=== PATIENT | male | born 1980 | race African-American/Black ===

== ENCOUNTER 2019-04-15 06:09 | Emergency (ER) | payer SELFPAY ==
[2019-04-15] MEDS ORDERED: Albuterol/Ipratropium 3.0-0.5 MG/3 ML Neb Soln ONE (06:11)
[2019-04-15] MEDS ORDERED: predniSONE 20 MG Tab PO ONE (06:17)
[2019-04-15] MEDS ORDERED: Albuterol/Ipratropium 3.0-0.5 MG/3 ML Neb Soln NEB ONE (06:18)
--- NOTE | 2019-04-15 06:19 | EDM.PDOC ---
ED HPI GENERAL MEDICAL PROBLEM - General Chief Complaint: Respiratory Problem Stated Complaint: SHORTNESS OF BREATH Time Seen by Provider: 04/15/19 06:16 - History of Present Illness INITIAL COMMENTS - FREE TEXT/NARRATIVE: HISTORY AND PHYSICAL: History of present illness: Patient 38-year-old black male with history of asthma presents with a concern of asthmatic exacerbation versus last several days he states he recently moved here from [place] forgot his medications. He's had no fever chills nausea vomiting or other complaints Review of systems: As per history of present illness and below otherwise all systems reviewed and negative. Past medical history: As per history of present illness and as reviewed below otherwise noncontributory. Surgical history: As per history of present illness and as reviewed below otherwise noncontributory. Social history: No reported history of drug or alcohol abuse. Family history: As per history of present illness and as reviewed below otherwise noncontributory. Physical exam: HEENT: Atraumatic, normocephalic, pupils reactive, negative for conjunctival pallor or scleral icterus, mucous membranes moist, throat clear, neck supple, nontender, trachea midline. Lungs: Scattered bilateral inspiratory and expiratory wheezing noted, breath sounds equal bilaterally, chest nontender. Heart: S1S2, regular, negative for clicks, rubs, or JVD. Abdomen: Soft, nondistended, nontender. Negative for masses or hepatosplenomegaly. Negative for costovertebral tenderness. Pelvis: Stable nontender. Genitourinary: Deferred. Rectal: Deferred. Extremities: Atraumatic, negative for cords or calf pain. Neurovascular unremarkable. Neuro: Awake, alert, oriented. Cranial nerves II through XII unremarkable. Cerebellum unremarkable. Motor and sensory unremarkable throughout. Exam nonfocal. Diagnostics: None Therapeutics: Albuterol ipratropium nebulizer prednisone 60 mg by mouth Impression: #1 acute asthmatic exacerbation Definitive disposition and diagnosis as appropriate pending reevaluation and review of above. ED ROS GENERAL - Review of Systems Review Of Systems: ROS reveals no pertinent complaints other than HPI. ED EXAM, GENERAL - Physical Exam Exam: See Below (See dictation) Course - Orders/Labs/Meds Meds: Medications Discontinued Medications Generic Name Dose Route Start Last Admin Trade Name Freq PRN Reason Stop Dose Admin Albuterol/Ipratropium Confirm 04/15/19 06:11 Duoneb 3.0-0.5 Mg/3 Ml Administered 04/15/19 06:12 Dose 3 ml .ROUTE .STK-MED ONE Departure - Departure Time of Disposition: :19 Disposition: Home, Self-Care 01 Condition: Good Clinical Impression: Acute asthma - Discharge Information Additional Instructions: The following information is given to patients seen in the emergency department who are being discharged to home. This information is to outline your options for follow-up care. We provide all patients seen in our emergency department with a follow-up referral. The need for follow-up, as well as the timing and circumstances, are variable depending upon the specifics of your emergency department visit. If you don't have a primary care physician on staff, we will provide you with a referral. We always advise you to contact your personal physician following an emergency department visit to inform them of the circumstance of the visit and for follow-up with them and/or the need for any referrals to a consulting specialist. The emergency department will also refer you to a specialist when appropriate. This referral assures that you have the opportunity for followup care with a specialist. All of these measure are taken in an effort to provide you with optimal care, which includes your followup. Under all circumstances we always encourage you to contact your private physician who remains a resource for coordinating your care. When calling for followup care, please make the office aware that this follow-up is from your recent emergency room visit. If for any reason you are refused follow-up, please contact the [facility] emergency department at and asked to speak to the emergency department charge nurse. [facility] [address] [place] [id number] Albuterol as prescribed Medrol as prescribed follow-up primary medical doctor and/or clinic above as needed as discussed and return as needed as discussed
[2019-04-15] MEDS ORDERED: Metoprolol Succinate 50 MG Tab.ER PO ONE (06:57)
[2019-04-15] MEDS ORDERED: hydrALAZINE 20 MG/ML SDV IVPUSH ONE (06:57)
== END 2019-04-15 08:05 | disposition home or self-care (01) ==
LOC: MW.ED 06:09
DX: J45.901 Unspecified asthma with (acute) exacerbation (principal)
CPT/HCPCS: 94640; 96374; 99284; A9270; J0360; 99282; J7620-GY

== ENCOUNTER 2019-04-16 09:54 | Observation (INO) | payer SELFPAY ==
[2019-04-16] MEDS ORDERED: hydrALAZINE 20 MG/ML SDV IVPUSH ONE (10:05)
[2019-04-16] MEDS ORDERED: Sodium Chloride 0.9% 10 ML Syringe FLUSH PRN (10:05)
[2019-04-16] MEDS ORDERED: Sodium Chloride 0.9% 2.5 ML Syringe FLUSH PRN (10:05)
[2019-04-16] MEDS ORDERED: Metoprolol Succinate 100 MG Tab.ER PO ONE (10:06)
[2019-04-16] MEDS ORDERED: Albuterol/Ipratropium 3.0-0.5 MG/3 ML Neb Soln ONE (10:11)
[2019-04-16] MEDS ORDERED: Albuterol/Ipratropium 3.0-0.5 MG/3 ML Neb Soln NEB ONE (10:12)
[2019-04-16] MEDS ORDERED: methylPREDNISolone Sodium Succinate 125 MG/2 ML SDV IVPUSH ONE (10:12)
--- NOTE | 2019-04-16 10:32 | EDM.PDOC ---
ED HPI GENERAL MEDICAL PROBLEM - General Chief Complaint: Respiratory Problem Stated Complaint: SHORTNESS OF BREATH Time Seen by Provider: 04/16/19 10:01 - History of Present Illness INITIAL COMMENTS - FREE TEXT/NARRATIVE: HISTORY AND PHYSICAL: History of present illness: Patient 38-year-old black male history of asthma hypertension who was seen several days prior for medication refill he had elevated blood pressure at this time deferred any more significant treatment he did get albuterol ipratropium nebulizer and IV medication for his elevated blood pressure is discharged to home markedly improved but did not get any of his medications refilled he returns with hypertension and shortness of breath. Review of systems: As per history of present illness and below otherwise all systems reviewed and negative. Past medical history: As per history of present illness and as reviewed below otherwise noncontributory. Surgical history: As per history of present illness and as reviewed below otherwise noncontributory. Social history: No reported history of drug or alcohol abuse. Family history: As per history of present illness and as reviewed below otherwise noncontributory. Physical exam: HEENT: Atraumatic, normocephalic, pupils reactive, negative for conjunctival pallor or scleral icterus, mucous membranes moist, throat clear, neck supple, nontender, trachea midline. Lungs: Inspiratory next-door wheezing noted bilaterally breath sounds equal bilaterally, chest nontender. Heart: S1S2, regular, negative for clicks, rubs, or JVD. Abdomen: Soft, nondistended, nontender. Negative for masses or hepatosplenomegaly. Negative for costovertebral tenderness. Pelvis: Stable nontender. Genitourinary: Deferred. Rectal: Deferred. Extremities: Atraumatic, negative for cords or calf pain. Neurovascular unremarkable. Neuro: Awake, alert, oriented. Cranial nerves II through XII unremarkable. Cerebellum unremarkable. Motor and sensory unremarkable throughout. Exam nonfocal. 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 - Related Data Allergies Allergy/AdvReac Type Severity Reaction Status Date / Time lisinopril Allergy Swelling Verified 04/16/19 12:39 Home Meds: Home Meds Labetalol [Normodyne] 200 mg PO DAILY 04/15/19 [History] amLODIPine [Norvasc] 10 mg PO DAILY 04/16/19 [History] Past Medical History Cardiovascular History: Reports: Hypertension Respiratory History: Reports: Asthma, Sleep Apnea Musculoskeletal History: Reports: None Neurological History: Reports: Headaches, Chronic - Infectious Disease History Infectious Disease History: Reports: Chicken Pox - Past Surgical History Respiratory Surgical History: Reports: None Musculoskeletal Surgical History: Reports: Other (See Below) Other Musculoskeletal Surgeries/Procedures:: left thumb Social & Family History - Family History Family Medical History: Noncontributory - Tobacco Use Smoking Status *Q: Never Smoker - Caffeine Use Caffeine Use: Reports: None - Recreational Drug Use Recreational Drug Use: No ED ROS GENERAL - Review of Systems Review Of Systems: ROS reveals no pertinent complaints other than HPI. ED EXAM, GENERAL - Physical Exam Exam: See Below (See dictation) Course - Vital Signs Last Recorded V/S: Last Vital Signs Temp 36.5 C 04/16/19 17:12 Pulse 100 04/16/19 17:12 Resp 20 04/16/19 17:12 BP 179/135 H 04/16/19 17:12 Pulse Ox 100 04/16/19 17:12 - Orders/Labs/Meds Orders: Active Orders 24 hr Category Date Time Status Patient Status [ADT] Stat ADT 04/16/19 10:32 Active Cardiac Monitoring [RC] . DIRECTED Care 04/16/19 10:03 Inactive RT Aerosol Therapy [RC] ASDIRECTED Care 04/16/19 10:13 Active Sodium Chloride 0.9% [Saline Flush] Med 04/16/19 10:05 Active 10 ml FLUSH ASDIRECTED PRN Sodium Chloride 0.9% [Saline Flush] Med 04/16/19 10:05 Active 2.5 ml FLUSH ASDIRECTED PRN Saline Lock Insert [OM.PC] Stat Oth 04/16/19 10:03 Ordered Medication Orders Acetaminophen (Tylenol) 650 mg PO Q4H PRN PRN Reason: Pain (Mild 1-3)/fever Last Admin: 04/16/19 15:55 Dose: 650 mg Albuterol (Ventolin Hfa) 0 gm INH Q4H PRN PRN Reason: Wheezing Albuterol/Ipratropium (Duoneb 3.0-0.5 Mg/3 Ml) 3 ml NEB Q4HRRT PRN PRN Reason: Shortness of Breath Last Admin: 04/16/19 15:41 Dose: 3 ml Enoxaparin Sodium (Lovenox) 40 mg SUBCUT Q24H [facility] Last Admin: 04/16/19 13:42 Dose: 40 mg Hydralazine HCl (Apresoline) 10 mg PO Q6H MALLIKA Last Admin: 04/16/19 15:29 Dose: 10 mg Ketorolac Tromethamine (Toradol) 30 mg IVPUSH Q6H PRN PRN Reason: Pain (moderate 4-6) Metoprolol Tartrate (Lopressor) 25 mg PO Q12H [facility] Last Admin: 04/16/19 13:52 Dose: 25 mg Ondansetron HCl (Zofran Odt) 4 mg PO Q4H PRN PRN Reason: nausea, able to take PO Sodium Chloride (Saline Flush) 10 ml FLUSH ASDIRECTED PRN PRN Reason: Keep Vein Open Last Admin: 04/16/19 10:15 Dose: 10 ml Sodium Chloride (Saline Flush) 2.5 ml FLUSH ASDIRECTED PRN PRN Reason: Keep Vein Open Last Admin: 04/16/19 10:15 Dose: 2.5 ml Labs: Laboratory Tests 04/16/19 04/16/19 04/16/19 Range/Units 10:07 10:09 10:09 WBC 9.44 (4.0-11.0) K/uL RBC 5.46 (4.50-5.90) M/uL Hgb 15.6 (13.0-17.0) g/dL Hct 45.7 (38.0-50.0) % MCV 83.7 (80.0-98.0) fL MCH 28.6 (27.0-32.0) pg MCHC 34.1 (31.0-37.0) g/dL RDW Std Deviation 41.6 (28.0-62.0) fl RDW Coeff of Cathleen 14 (11.0-15.0) % Plt Count 232 (150-400) K/uL MPV 10.70 (7.40-12.00) fL Neut % (Auto) 56.7 (48.0-80.0) % Lymph % (Auto) 25.7 (16.0-40.0) % Wayne % (Auto) 6.1 (0.0-15.0) % Eos % (Auto) 11.1 H (0.0-7.0) % Baso % (Auto) 0.4 (0.0-1.5) % Neut # (Auto) 5.3 (1.4-5.7) K/uL Lymph # (Auto) 2.4 (0.6-2.4) K/uL Wayne # (Auto) 0.6 (0.0-0.8) K/uL Eos # (Auto) 1.1 H (0.0-0.7) K/uL Baso # (Auto) 0.0 (0.0-0.1) K/uL Nucleated RBC % 0.0 /100WBC Nucleated RBCs # 0 K/uL INR Sodium (136-148) mmol/L Potassium (3.5-5.1) mmol/L Chloride (98-107) mmol/L Carbon Dioxide (21.0-32.0) mmol/L BUN (7.0-18.0) mg/dL Creatinine (0.8-1.3) mg/dL Est Cr Clr Drug Dosing mL/min Estimated GFR (MDRD) ml/min Glucose (74-106) mg/dL Calcium (8.5-10.1) mg/dL Total Bilirubin (0.2-1.0) mg/dL AST (15-37) IU/L ALT (14-63) IU/L Alkaline Phosphatase (46-116) U/L Troponin I (0.000-0.056) ng/mL B-Natriuretic Peptide 40 (<100) PG/ML Total Protein (6.4-8.2) g/dL Albumin (3.4-5.0) g/dL Globulin (2.6-4.0) g/dL Albumin/Globulin Ratio (0.9-1.6) Triglycerides 67 (0-200) mg/dL Cholesterol 176 (50-200) mg/dL LDL Cholesterol, Calc 118 (60-180) mg/dL VLDL Cholesterol 13 (5-55) mg/dL HDL Cholesterol 45 (40-60) mg/dL Cholesterol/HDL Ratio 3.9 (3.3-6.0) TSH 3rd Generation (0.36-3.74) uIU/mL 04/16/19 04/16/19 04/16/19 Range/Units 10:09 10:09 10:09 WBC (4.0-11.0) K/uL RBC (4.50-5.90) M/uL Hgb (13.0-17.0) g/dL Hct (38.0-50.0) % MCV (80.0-98.0) fL MCH (27.0-32.0) pg MCHC (31.0-37.0) g/dL RDW Std Deviation (28.0-62.0) fl RDW Coeff of Cathleen (11.0-15.0) % Plt Count (150-400) K/uL MPV (7.40-12.00) fL Neut % (Auto) (48.0-80.0) % Lymph % (Auto) (16.0-40.0) % Wayne % (Auto) (0.0-15.0) % Eos % (Auto) (0.0-7.0) % Baso % (Auto) (0.0-1.5) % Neut # (Auto) (1.4-5.7) K/uL Lymph # (Auto) (0.6-2.4) K/uL Wayne # (Auto) (0.0-0.8) K/uL Eos # (Auto) (0.0-0.7) K/uL Baso # (Auto) (0.0-0.1) K/uL Nucleated RBC % /100WBC Nucleated RBCs # K/uL INR 1.00 Sodium 136 (136-148) mmol/L Potassium 3.3 L (3.5-5.1) mmol/L Chloride 101 (98-107) mmol/L Carbon Dioxide 25.9 (21.0-32.0) mmol/L BUN 14 (7.0-18.0) mg/dL Creatinine 0.9 (0.8-1.3) mg/dL Est Cr Clr Drug Dosing 120.85 mL/min Estimated GFR (MDRD) > 60.0 ml/min Glucose 101 (74-106) mg/dL Calcium 8.6 (8.5-10.1) mg/dL Total Bilirubin 0.7 (0.2-1.0) mg/dL AST 26 (15-37) IU/L ALT 48 (14-63) IU/L Alkaline Phosphatase 88 (46-116) U/L Troponin I < 0.050 (0.000-0.056) ng/mL B-Natriuretic Peptide (<100) PG/ML Total Protein 8.2 (6.4-8.2) g/dL Albumin 4.4 (3.4-5.0) g/dL Globulin 3.8 (2.6-4.0) g/dL Albumin/Globulin Ratio 1.2 (0.9-1.6) Triglycerides (0-200) mg/dL Cholesterol (50-200) mg/dL LDL Cholesterol, Calc (60-180) mg/dL VLDL Cholesterol (5-55) mg/dL HDL Cholesterol (40-60) mg/dL Cholesterol/HDL Ratio (3.3-6.0) TSH 3rd Generation 0.73 (0.36-3.74) uIU/mL Meds: Medications Generic Name Dose Route Start Last Admin Trade Name Freq PRN Reason Stop Dose Admin Acetaminophen 650 mg 04/16/19 13:12 04/16/19 15:55 Tylenol PO 650 mg Q4H PRN Administration Pain (Mild 1-3)/fever Albuterol 0 gm 04/16/19 13:20 Ventolin Hfa INH Q4H PRN Wheezing Albuterol/Ipratropium 3 ml 04/16/19 13:20 04/16/19 15:41 Duoneb 3.0-0.5 Mg/3 Ml NEB 3 ml Q4HRRT PRN Administration Shortness of Breath Enoxaparin Sodium 40 mg 04/16/19 13:15 04/16/19 13:42 Lovenox SUBCUT 40 mg Q24H MALLIKA Administration Hydralazine HCl 10 mg 04/16/19 15:15 04/16/19 15:29 Apresoline PO 10 mg Q6H MALLIKA Administration Ketorolac Tromethamine 30 mg 04/16/19 13:12 Toradol IVPUSH Q6H PRN Pain (moderate 4-6) Metoprolol Tartrate 25 mg 04/16/19 13:45 04/16/19 13:52 Lopressor PO 25 mg Q12H MALLIKA Administration Ondansetron HCl 4 mg 04/16/19 13:12 Zofran Odt PO Q4H PRN nausea, able to take PO Sodium Chloride 10 ml 04/16/19 10:05 04/16/19 10:15 Saline Flush FLUSH 10 ml ASDIRECTED PRN Administration Keep Vein Open Sodium Chloride 2.5 ml 04/16/19 10:05 04/16/19 10:15 Saline Flush FLUSH 2.5 ml ASDIRECTED PRN Administration Keep Vein Open Discontinued Medications Generic Name Dose Route Start Last Admin Trade Name Freq PRN Reason Stop Dose Admin Albuterol/Ipratropium 3 ml 04/16/19 10:12 04/16/19 10:19 Duoneb 3.0-0.5 Mg/3 Ml NEB 04/16/19 10:13 3 ml ONETIME ONE Administration Albuterol/Ipratropium Confirm 04/16/19 10:11 04/16/19 10:20 Duoneb 3.0-0.5 Mg/3 Ml Administered 04/16/19 10:12 Not Given Dose 3 ml .ROUTE .STK-MED ONE Hydralazine HCl 10 mg 04/16/19 10:05 04/16/19 10:15 Apresoline IVPUSH 04/16/19 10:06 10 mg ONETIME ONE Administration Labetalol HCl 10 mg 04/16/19 13:30 Normodyne PO DAILY MALLIKA Labetalol HCl 100 mg 04/16/19 13:30 Normodyne PO DAILY MALLIKA Labetalol HCl 100 mg 04/16/19 21:00 Normodyne PO BID MALLIKA Methylprednisolone Sodium Succinate 125 mg 04/16/19 10:12 04/16/19 10:18 Solu-Medrol IVPUSH 04/16/19 10:13 125 mg ONETIME ONE Administration Metoprolol Succinate 100 mg 04/16/19 10:06 04/16/19 10:16 Toprol Xl PO 04/16/19 10:07 100 mg ONETIME ONE Administration Departure - Departure Time of Disposition: 18:35 Disposition: Refer to Observation Condition: Good Clinical Impression: Exacerbation of asthma, Hypertension - Discharge Information - My Orders Last 24 Hours: My Active Orders 04/16/19 10:03 Cardiac Monitoring [RC] . DIRECTED Saline Lock Insert [OM.PC] Stat 04/16/19 10:05 Sodium Chloride 0.9% [Saline Flush] 10 ml FLUSH ASDIRECTED PRN Sodium Chloride 0.9% [Saline Flush] 2.5 ml FLUSH ASDIRECTED PRN 04/16/19 10:13 RT Aerosol Therapy [RC] ASDIRECTED 04/16/19 10:32 Patient Status [ADT] Stat - Assessment/Plan Last 24 Hours: My Active Orders 04/16/19 10:03 Cardiac Monitoring [RC] . DIRECTED Saline Lock Insert [OM.PC] Stat 04/16/19 10:05 Sodium Chloride 0.9% [Saline Flush] 10 ml FLUSH ASDIRECTED PRN Sodium Chloride 0.9% [Saline Flush] 2.5 ml FLUSH ASDIRECTED PRN 04/16/19 10:13 RT Aerosol Therapy [RC] ASDIRECTED 04/16/19 10:32 Patient Status [ADT] Stat
--- NOTE | 2019-04-16 10:37 | CR ---
EXAMINATION: Portable chest radiograph. HISTORY: Shortness of breath. FINDINGS: The trachea is midline. The cardiomediastinal silhouette is within normal limits. No pulmonary infiltrates, effusions or pneumothorax. Osseous structures appear unremarkable. IMPRESSION: No acute cardiopulmonary process.
[2019-04-16 10:46] LABS: CHLORIDE,CL 101 mmol/L (98-107); SODIUM,NA 136 mmol/L (136-148)
[2019-04-16] MEDS ORDERED: Ketorolac 30 MG/ML SDV IVPUSH PRN (13:12)
[2019-04-16] MEDS ORDERED: Ondansetron 4 MG Tab.DIS PO PRN (13:12)
[2019-04-16] MEDS ORDERED: Enoxaparin 40 MG/0.4 ML Syringe SUBCUT SCH (13:15)
--- NOTE | 2019-04-16 13:17 | PCM.HP ---
<Farhan Patel - Last Filed: 04/16/19 15:00> H&P History of Present Illness - General Date of Service: 04/16/19 Admit Problem/Dx: Admission Diagnosis/Problem Admission Diagnosis/Problem Dyspnea - History of Present Illness Initial Comments - Free Text/Narative: 38 y/o male with history of hypertension and asthma who presented to the ER complaining of worsening shortness of breath. He states he recently moved from [place] about 1 week ago. He states he has not used any rescue inhalers in years since he was feeling well until he moved here recently. Denies any headaches, change in vision, cough. No abdominal pain,dysuria, diarrhea. In the ER he was found to have BP 210/148. He was given metoprolol and hydralazine. Denies any tobacco use, alcohol use, illicit drug use. - Related Data Allergies/Adverse Reactions: Allergies Allergy/AdvReac Type Severity Reaction Status Date / Time lisinopril Allergy Swelling Verified 04/16/19 12:39 Home Medications: Home Meds Labetalol [Normodyne] 200 mg PO DAILY 04/15/19 [History] amLODIPine [Norvasc] 10 mg PO DAILY 04/16/19 [History] Past Medical History Cardiovascular History: Reports: Hypertension Respiratory History: Reports: Asthma, Sleep Apnea Musculoskeletal History: Reports: None Neurological History: Reports: Headaches, Chronic - Infectious Disease History Infectious Disease History: Reports: Chicken Pox - Past Surgical History Respiratory Surgical History: Reports: None Musculoskeletal Surgical History: Reports: Other (See Below) Other Musculoskeletal Surgeries/Procedures:: left thumb Social & Family History - Family History Family Medical History: Noncontributory Cardiac: Reports: Hypertension - Tobacco Use Smoking Status *Q: Never Smoker Second Hand Smoke Exposure: No - Caffeine Use Caffeine Use: Reports: Soda Caffeine Use Comment: A few cans of coke occasionally - Recreational Drug Use Recreational Drug Use: No H&P Review of Systems - Review of Systems: Review Of Systems: ROS reveals no pertinent complaints other than HPI. Exam - Exam Exam: See Below - Vital Signs Vital Signs: Last Vital Signs Temp 36.6 C 04/16/19 12:26 Pulse 80 04/16/19 12:26 Resp 12 04/16/19 12:26 BP 180/139 H 04/16/19 12:26 Pulse Ox 96 04/16/19 12:26 Weight: 102.512 kg - Exam General: Alert, Oriented, Cooperative HEENT: Conjunctiva Clear, Mucosa Moist & [place] Lungs: Clear to Auscultation, Normal Respiratory Effort, Wheezing. No: Crackles Cardiovascular: Regular Rate, Bradycardia GI/Abdominal Exam: Normal Bowel Sounds, Soft, Non-Tender Extremities: Normal Inspection, No Pedal Edema Skin: Warm, Dry - Patient Data Lab Results Last 24 hrs: Laboratory Results - last 24 hr 04/16/19 04/16/19 04/16/19 Range/Units 10:09 10:09 10:09 WBC 9.44 (4.0-11.0) K/uL RBC 5.46 (4.50-5.90) M/uL Hgb 15.6 (13.0-17.0) g/dL Hct 45.7 (38.0-50.0) % MCV 83.7 (80.0-98.0) fL MCH 28.6 (27.0-32.0) pg MCHC 34.1 (31.0-37.0) g/dL RDW Std Deviation 41.6 (28.0-62.0) fl RDW Coeff of Cathleen 14 (11.0-15.0) % Plt Count 232 (150-400) K/uL MPV 10.70 (7.40-12.00) fL Neut % (Auto) 56.7 (48.0-80.0) % Lymph % (Auto) 25.7 (16.0-40.0) % [place] % (Auto) 6.1 (0.0-15.0) % Eos % (Auto) 11.1 H (0.0-7.0) % Baso % (Auto) 0.4 (0.0-1.5) % Neut # (Auto) 5.3 (1.4-5.7) K/uL Lymph # (Auto) 2.4 (0.6-2.4) K/uL [place] # (Auto) 0.6 (0.0-0.8) K/uL Eos # (Auto) 1.1 H (0.0-0.7) K/uL Baso # (Auto) 0.0 (0.0-0.1) K/uL Nucleated RBC % 0.0 /100WBC Nucleated RBCs # 0 K/uL INR 1.00 Sodium (136-148) mmol/L Potassium (3.5-5.1) mmol/L Chloride (98-107) mmol/L Carbon Dioxide (21.0-32.0) mmol/L BUN (7.0-18.0) mg/dL Creatinine (0.8-1.3) mg/dL Est Cr Clr Drug Dosing mL/min Estimated GFR (MDRD) ml/min Glucose (74-106) mg/dL Calcium (8.5-10.1) mg/dL Total Bilirubin (0.2-1.0) mg/dL AST (15-37) IU/L ALT (14-63) IU/L Alkaline Phosphatase (46-116) U/L Troponin I (0.000-0.056) ng/mL B-Natriuretic Peptide 40 (<100) PG/ML Total Protein (6.4-8.2) g/dL Albumin (3.4-5.0) g/dL Globulin (2.6-4.0) g/dL Albumin/Globulin Ratio (0.9-1.6) 04/16/19 Range/Units 10:09 WBC (4.0-11.0) K/uL RBC (4.50-5.90) M/uL Hgb (13.0-17.0) g/dL Hct (38.0-50.0) % MCV (80.0-98.0) fL MCH (27.0-32.0) pg MCHC (31.0-37.0) g/dL RDW Std Deviation (28.0-62.0) fl RDW Coeff of Cathleen (11.0-15.0) % Plt Count (150-400) K/uL MPV (7.40-12.00) fL Neut % (Auto) (48.0-80.0) % Lymph % (Auto) (16.0-40.0) % [place] % (Auto) (0.0-15.0) % Eos % (Auto) (0.0-7.0) % Baso % (Auto) (0.0-1.5) % Neut # (Auto) (1.4-5.7) K/uL Lymph # (Auto) (0.6-2.4) K/uL [place] # (Auto) (0.0-0.8) K/uL Eos # (Auto) (0.0-0.7) K/uL Baso # (Auto) (0.0-0.1) K/uL Nucleated RBC % /100WBC Nucleated RBCs # K/uL INR Sodium 136 (136-148) mmol/L Potassium 3.3 L (3.5-5.1) mmol/L Chloride 101 (98-107) mmol/L Carbon Dioxide 25.9 (21.0-32.0) mmol/L BUN 14 (7.0-18.0) mg/dL Creatinine 0.9 (0.8-1.3) mg/dL Est Cr Clr Drug Dosing 120.85 mL/min Estimated GFR (MDRD) > 60.0 ml/min Glucose 101 (74-106) mg/dL Calcium 8.6 (8.5-10.1) mg/dL Total Bilirubin 0.7 (0.2-1.0) mg/dL AST 26 (15-37) IU/L ALT 48 (14-63) IU/L Alkaline Phosphatase 88 (46-116) U/L Troponin I < 0.050 (0.000-0.056) ng/mL B-Natriuretic Peptide (<100) PG/ML Total Protein 8.2 (6.4-8.2) g/dL Albumin 4.4 (3.4-5.0) g/dL Globulin 3.8 (2.6-4.0) g/dL Albumin/Globulin Ratio 1.2 (0.9-1.6) Result Diagrams: 04/16/19 10:09 04/16/19 10:09 Problem List Initiated/Reviewed/Updated: Yes Orders Last 24hrs: Active Orders 24 hr Category Date Time Status Patient Status [ADT] Stat ADT 04/16/19 10:32 Active Cardiac Monitoring [RC] . DIRECTED Care 04/16/19 10:03 Active Oxygen Therapy [RC] PRN Care 04/16/19 13:12 Ordered RT Aerosol Therapy [RC] ASDIRECTED Care 04/16/19 10:13 Active Up ad [place] [RC] ASDIRECTED Care 04/16/19 13:12 Ordered VTE/DVT Education [RC] PER UNIT ROUTINE Care 04/16/19 13:12 Ordered Vital Signs [RC] Q4H Care 04/16/19 13:12 Ordered Regular Diet [DIET] Diet 04/16/19 Breakfast Ordered Acetaminophen [Tylenol] Med 04/16/19 13:12 Ordered 650 mg PO Q4H PRN Enoxaparin [Lovenox] Med 04/16/19 13:15 Ordered 40 mg SUBCUT Q24H Ketorolac [Toradol] Med 04/16/19 13:12 Ordered 30 mg IM Q6H PRN Labetalol [Normodyne] Med 04/16/19 13:30 Ordered 100 mg PO DAILY Ondansetron [Zofran ODT] Med 04/16/19 13:12 Ordered 4 mg PO Q4H PRN Sodium Chloride 0.9% [Saline Flush] Med 04/16/19 10:05 Active 10 ml FLUSH ASDIRECTED PRN Sodium Chloride 0.9% [Saline Flush] Med 04/16/19 10:05 Active 2.5 ml FLUSH ASDIRECTED PRN Saline Lock Insert [OM.PC] Stat Oth 04/16/19 10:03 Ordered Resuscitation Status Routine Resus Stat 04/16/19 13:12 Ordered Medication Orders Acetaminophen (Tylenol) 650 mg PO Q4H PRN PRN Reason: Pain (Mild 1-3)/fever Enoxaparin Sodium (Lovenox) 40 mg SUBCUT Q24H MALLIKA Ketorolac Tromethamine (Toradol) 30 mg IM Q6H PRN PRN Reason: Pain (moderate 4-6) Labetalol HCl (Normodyne) 100 mg PO DAILY MALLIKA Ondansetron HCl (Zofran Odt) 4 mg PO Q4H PRN PRN Reason: nausea, able to take PO Sodium Chloride (Saline Flush) 10 ml FLUSH ASDIRECTED PRN PRN Reason: Keep Vein Open Last Admin: 04/16/19 10:15 Dose: 10 ml Sodium Chloride (Saline Flush) 2.5 ml FLUSH ASDIRECTED PRN PRN Reason: Keep Vein Open Last Admin: 04/16/19 10:15 Dose: 2.5 ml Assessment/Plan Comment:: A: 1. Hypertensive urgency 2. Hypokalemia P: 1. Hypertensive urgency- Metoprolol 25 mg PO BID. If not improving, will increase dose and possibly start hydralazine. Pending Echo. 2. Hypokalemia- replace with KCl 40 mEq once. recheck tomorrow. dispo:1-2 days. <Hua Cano - Last Filed: 04/16/19 16:20> H&P History of Present Illness - General Admit Problem/Dx: Admission Diagnosis/Problem Admission Diagnosis/Problem Dyspnea I have seen and examined to patient independently of medical legal investigator, Farhan Montero MD. I have discussed the case for care of this patient with him. I have reviewed and approve of the plan of care as outlined by medical legal investigator. Please see orders. Exam - Vital Signs Vital Signs: Last Vital Signs Temp 35.6 C 04/16/19 12:35 Pulse 89 04/16/19 13:52 Resp 20 04/16/19 12:35 BP 178/111 H 04/16/19 15:29 Pulse Ox 97 04/16/19 12:35 - Patient Data Lab Results Last 24 hrs: Laboratory Results - last 24 hr 04/16/19 04/16/19 04/16/19 Range/Units 10:07 10:09 10:09 WBC 9.44 (4.0-11.0) K/uL RBC 5.46 (4.50-5.90) M/uL Hgb 15.6 (13.0-17.0) g/dL Hct 45.7 (38.0-50.0) % MCV 83.7 (80.0-98.0) fL MCH 28.6 (27.0-32.0) pg MCHC 34.1 (31.0-37.0) g/dL RDW Std Deviation 41.6 (28.0-62.0) fl RDW Coeff of Cathleen 14 (11.0-15.0) % Plt Count 232 (150-400) K/uL MPV 10.70 (7.40-12.00) fL Neut % (Auto) 56.7 (48.0-80.0) % Lymph % (Auto) 25.7 (16.0-40.0) % [place] % (Auto) 6.1 (0.0-15.0) % Eos % (Auto) 11.1 H (0.0-7.0) % Baso % (Auto) 0.4 (0.0-1.5) % Neut # (Auto) 5.3 (1.4-5.7) K/uL Lymph # (Auto) 2.4 (0.6-2.4) K/uL [place] # (Auto) 0.6 (0.0-0.8) K/uL Eos # (Auto) 1.1 H (0.0-0.7) K/uL Baso # (Auto) 0.0 (0.0-0.1) K/uL Nucleated RBC % 0.0 /100WBC Nucleated RBCs # 0 K/uL INR Sodium (136-148) mmol/L Potassium (3.5-5.1) mmol/L Chloride (98-107) mmol/L Carbon Dioxide (21.0-32.0) mmol/L BUN (7.0-18.0) mg/dL Creatinine (0.8-1.3) mg/dL Est Cr Clr Drug Dosing mL/min Estimated GFR (MDRD) ml/min Glucose (74-106) mg/dL Hemoglobin A1c (4.5-6.2) % Calcium (8.5-10.1) mg/dL Total Bilirubin (0.2-1.0) mg/dL AST (15-37) IU/L ALT (14-63) IU/L Alkaline Phosphatase (46-116) U/L Troponin I (0.000-0.056) ng/mL B-Natriuretic Peptide 40 (<100) PG/ML Total Protein (6.4-8.2) g/dL Albumin (3.4-5.0) g/dL Globulin (2.6-4.0) g/dL Albumin/Globulin Ratio (0.9-1.6) Triglycerides 67 (0-200) mg/dL Cholesterol 176 (50-200) mg/dL LDL Cholesterol, Calc 118 (60-180) mg/dL VLDL Cholesterol 13 (5-55) mg/dL HDL Cholesterol 45 (40-60) mg/dL Cholesterol/HDL Ratio 3.9 (3.3-6.0) TSH 3rd Generation (0.36-3.74) uIU/mL Urine Color Urine Appearance Urine pH (5.0-8.0) Ur Specific [place] (1.001-1.035) Urine Protein (NEGATIVE) mg/dL Urine Glucose (UA) (NEGATIVE) mg/dL Urine Ketones (NEGATIVE) mg/dL Urine Occult Blood (NEGATIVE) Urine Nitrite (NEGATIVE) Urine Bilirubin (NEGATIVE) Urine Urobilinogen (<2.0) EU/dL Ur Leukocyte Esterase (NEGATIVE) Urine RBC (0-2/HPF) Urine WBC (0-5/HPF) Ur Epithelial Cells (NONE-FEW) Amorphous Sediment (NEGATIVE) Urine Bacteria (NEGATIVE) Urine Opiates Screen (NEGATIVE) Ur Oxycodone Screen (NEGATIVE) Urine Methadone Screen (NEGATIVE) Ur Barbiturates Screen (NEGATIVE) Ur Phencyclidine Scrn (NEGATIVE) Ur Amphetamine Screen (NEGATIVE) U Methamphetamines Scrn (NEGATIVE) U Benzodiazepines Scrn (NEGATIVE) U Cocaine Metab Screen (NEGATIVE) U Marijuana (THC) Screen (NEGATIVE) 04/16/19 04/16/19 04/16/19 Range/Units 10:09 10:09 10:09 WBC (4.0-11.0) K/uL RBC (4.50-5.90) M/uL Hgb (13.0-17.0) g/dL Hct (38.0-50.0) % MCV (80.0-98.0) fL MCH (27.0-32.0) pg MCHC (31.0-37.0) g/dL RDW Std Deviation (28.0-62.0) fl RDW Coeff of Cathleen (11.0-15.0) % Plt Count (150-400) K/uL MPV (7.40-12.00) fL Neut % (Auto) (48.0-80.0) % Lymph % (Auto) (16.0-40.0) % [place] % (Auto) (0.0-15.0) % Eos % (Auto) (0.0-7.0) % Baso % (Auto) (0.0-1.5) % Neut # (Auto) (1.4-5.7) K/uL Lymph # (Auto) (0.6-2.4) K/uL [place] # (Auto) (0.0-0.8) K/uL Eos # (Auto) (0.0-0.7) K/uL Baso # (Auto) (0.0-0.1) K/uL Nucleated RBC % /100WBC Nucleated RBCs # K/uL INR 1.00 Sodium 136 (136-148) mmol/L Potassium 3.3 L (3.5-5.1) mmol/L Chloride 101 (98-107) mmol/L Carbon Dioxide 25.9 (21.0-32.0) mmol/L BUN 14 (7.0-18.0) mg/dL Creatinine 0.9 (0.8-1.3) mg/dL Est Cr Clr Drug Dosing 120.85 mL/min Estimated GFR (MDRD) > 60.0 ml/min Glucose 101 (74-106) mg/dL Hemoglobin A1c (4.5-6.2) % Calcium 8.6 (8.5-10.1) mg/dL Total Bilirubin 0.7 (0.2-1.0) mg/dL AST 26 (15-37) IU/L ALT 48 (14-63) IU/L Alkaline Phosphatase 88 (46-116) U/L Troponin I < 0.050 (0.000-0.056) ng/mL B-Natriuretic Peptide (<100) PG/ML Total Protein 8.2 (6.4-8.2) g/dL Albumin 4.4 (3.4-5.0) g/dL Globulin 3.8 (2.6-4.0) g/dL Albumin/Globulin Ratio 1.2 (0.9-1.6) Triglycerides (0-200) mg/dL Cholesterol (50-200) mg/dL LDL Cholesterol, Calc (60-180) mg/dL VLDL Cholesterol (5-55) mg/dL HDL Cholesterol (40-60) mg/dL Cholesterol/HDL Ratio (3.3-6.0) TSH 3rd Generation 0.73 (0.36-3.74) uIU/mL Urine Color Urine Appearance Urine pH (5.0-8.0) Ur Specific [place] (1.001-1.035) Urine Protein (NEGATIVE) mg/dL Urine Glucose (UA) (NEGATIVE) mg/dL Urine Ketones (NEGATIVE) mg/dL Urine Occult Blood (NEGATIVE) Urine Nitrite (NEGATIVE) Urine Bilirubin (NEGATIVE) Urine Urobilinogen (<2.0) EU/dL Ur Leukocyte Esterase (NEGATIVE) Urine RBC (0-2/HPF) Urine WBC (0-5/HPF) Ur Epithelial Cells (NONE-FEW) Amorphous Sediment (NEGATIVE) Urine Bacteria (NEGATIVE) Urine Opiates Screen (NEGATIVE) Ur Oxycodone Screen (NEGATIVE) Urine Methadone Screen (NEGATIVE) Ur Barbiturates Screen (NEGATIVE) Ur Phencyclidine Scrn (NEGATIVE) Ur Amphetamine Screen (NEGATIVE) U Methamphetamines Scrn (NEGATIVE) U Benzodiazepines Scrn (NEGATIVE) U Cocaine Metab Screen (NEGATIVE) U Marijuana (THC) Screen (NEGATIVE) 04/16/19 04/16/19 04/16/19 Range/Units 14:03 15:35 15:35 WBC (4.0-11.0) K/uL RBC (4.50-5.90) M/uL Hgb (13.0-17.0) g/dL Hct (38.0-50.0) % MCV (80.0-98.0) fL MCH (27.0-32.0) pg MCHC (31.0-37.0) g/dL RDW Std Deviation (28.0-62.0) fl RDW Coeff of Cathleen (11.0-15.0) % Plt Count (150-400) K/uL MPV (7.40-12.00) fL Neut % (Auto) (48.0-80.0) % Lymph % (Auto) (16.0-40.0) % [place] % (Auto) (0.0-15.0) % Eos % (Auto) (0.0-7.0) % Baso % (Auto) (0.0-1.5) % Neut # (Auto) (1.4-5.7) K/uL Lymph # (Auto) (0.6-2.4) K/uL [place] # (Auto) (0.0-0.8) K/uL Eos # (Auto) (0.0-0.7) K/uL Baso # (Auto) (0.0-0.1) K/uL Nucleated RBC % /100WBC Nucleated RBCs # K/uL INR Sodium (136-148) mmol/L Potassium (3.5-5.1) mmol/L Chloride (98-107) mmol/L Carbon Dioxide (21.0-32.0) mmol/L BUN (7.0-18.0) mg/dL Creatinine (0.8-1.3) mg/dL Est Cr Clr Drug Dosing mL/min Estimated GFR (MDRD) ml/min Glucose (74-106) mg/dL Hemoglobin A1c 5.6 (4.5-6.2) % Calcium (8.5-10.1) mg/dL Total Bilirubin (0.2-1.0) mg/dL AST (15-37) IU/L ALT (14-63) IU/L Alkaline Phosphatase (46-116) U/L Troponin I (0.000-0.056) ng/mL B-Natriuretic Peptide (<100) PG/ML Total Protein (6.4-8.2) g/dL Albumin (3.4-5.0) g/dL Globulin (2.6-4.0) g/dL Albumin/Globulin Ratio (0.9-1.6) Triglycerides (0-200) mg/dL Cholesterol (50-200) mg/dL LDL Cholesterol, Calc (60-180) mg/dL VLDL Cholesterol (5-55) mg/dL HDL Cholesterol (40-60) mg/dL Cholesterol/HDL Ratio (3.3-6.0) TSH 3rd Generation (0.36-3.74) uIU/mL Urine Color YELLOW Urine Appearance SLT CLOUDY Urine pH 7.5 (5.0-8.0) Ur Specific [place] 1.015 (1.001-1.035) Urine Protein TRACE H (NEGATIVE) mg/dL Urine Glucose (UA) 100 H (NEGATIVE) mg/dL Urine Ketones NEGATIVE (NEGATIVE) mg/dL Urine Occult Blood NEGATIVE (NEGATIVE) Urine Nitrite NEGATIVE (NEGATIVE) Urine Bilirubin NEGATIVE (NEGATIVE) Urine Urobilinogen 0.2 (<2.0) EU/dL Ur Leukocyte Esterase NEGATIVE (NEGATIVE) Urine RBC 0-1 (0-2/HPF) Urine WBC 0-2 (0-5/HPF) Ur Epithelial Cells RARE (NONE-FEW) Amorphous Sediment MODERATE (NEGATIVE) Urine Bacteria FEW (NEGATIVE) Urine Opiates Screen NEGATIVE (NEGATIVE) Ur Oxycodone Screen NEGATIVE (NEGATIVE) Urine Methadone Screen NEGATIVE (NEGATIVE) Ur Barbiturates Screen NEGATIVE (NEGATIVE) Ur Phencyclidine Scrn NEGATIVE (NEGATIVE) Ur Amphetamine Screen NEGATIVE (NEGATIVE) U Methamphetamines Scrn NEGATIVE (NEGATIVE) U Benzodiazepines Scrn NEGATIVE (NEGATIVE) U Cocaine Metab Screen NEGATIVE (NEGATIVE) U Marijuana (THC) Screen NEGATIVE (NEGATIVE) Result Diagrams: 04/16/19 10:09 04/16/19 10:09 Orders Last 24hrs: Active Orders 24 hr Category Date Time Status Patient Status [ADT] Stat ADT 04/16/19 10:32 Active Cardiac Monitoring [RC] . DIRECTED Care 04/16/19 10:03 Inactive Oxygen Therapy [RC] PRN Care 04/16/19 13:12 Active RT Aerosol Therapy [RC] ASDIRECTED Care 04/16/19 10:13 Active RT Aerosol Therapy [RC] ASDIRECTED Care 04/16/19 13:20 Active RT Post Treatment Assessment [RC] Click to Edit Care 04/16/19 13:21 Active RT Pre-Treatment Assessment [RC] Click to Edit Care 04/16/19 13:21 Active Telemetry Monitoring [Cardiac Monitoring] [RC] . Care 04/16/19 14:30 Active DIRECTED Up ad Ana Paula [RC] ASDIRECTED Care 04/16/19 13:12 Active VTE/DVT Education [RC] PER UNIT ROUTINE Care 04/16/19 13:12 Active Vital Signs [RC] Q4H Care 04/16/19 13:12 Active Regular Diet [DIET] Diet 04/16/19 Breakfast Active Acetaminophen [Tylenol] Med 04/16/19 13:12 Active 650 mg PO Q4H PRN Albuterol [Ventolin HFA] Med 04/16/19 13:20 Active See Dose Instructions INH Q4H PRN Albuterol/Ipratropium [DuoNeb 3.0-0.5 MG/3 ML] Med 04/16/19 13:20 Active 3 ml NEB Q4HRRT PRN Enoxaparin [Lovenox] Med 04/16/19 13:15 Active 40 mg SUBCUT Q24H Ketorolac [Toradol] Med 04/16/19 13:12 Active 30 mg IVPUSH Q6H PRN Metoprolol Tartrate [Lopressor] Med 04/16/19 13:45 Active 25 mg PO Q12H Ondansetron [Zofran ODT] Med 04/16/19 13:12 Active 4 mg PO Q4H PRN Sodium Chloride 0.9% [Saline Flush] Med 04/16/19 10:05 Active 10 ml FLUSH ASDIRECTED PRN Sodium Chloride 0.9% [Saline Flush] Med 04/16/19 10:05 Active 2.5 ml FLUSH ASDIRECTED PRN hydrALAZINE [Apresoline] Med 04/16/19 15:15 Active 10 mg PO Q6H Saline Lock Insert [OM.PC] Stat Oth 04/16/19 10:03 Ordered Resuscitation Status Routine Resus Stat 04/16/19 13:12 Ordered Medication Orders Acetaminophen (Tylenol) 650 mg PO Q4H PRN PRN Reason: Pain (Mild 1-3)/fever Last Admin: 04/16/19 15:55 Dose: 650 mg Albuterol (Ventolin Hfa) 0 gm INH Q4H PRN PRN Reason: Wheezing Albuterol/Ipratropium (Duoneb 3.0-0.5 Mg/3 Ml) 3 ml NEB Q4HRRT PRN PRN Reason: Shortness of Breath Last Admin: 04/16/19 15:41 Dose: 3 ml Enoxaparin Sodium (Lovenox) 40 mg SUBCUT Q24H MALLIKA Last Admin: 04/16/19 13:42 Dose: 40 mg Hydralazine HCl (Apresoline) 10 mg PO Q6H MALLIKA Last Admin: 04/16/19 15:29 Dose: 10 mg Ketorolac Tromethamine (Toradol) 30 mg IVPUSH Q6H PRN PRN Reason: Pain (moderate 4-6) Metoprolol Tartrate (Lopressor) 25 mg PO Q12H MALLIKA Last Admin: 04/16/19 13:52 Dose: 25 mg Ondansetron HCl (Zofran Odt) 4 mg PO Q4H PRN PRN Reason: nausea, able to take PO Sodium Chloride (Saline Flush) 10 ml FLUSH ASDIRECTED PRN PRN Reason: Keep Vein Open Last Admin: 04/16/19 10:15 Dose: 10 ml Sodium Chloride (Saline Flush) 2.5 ml FLUSH ASDIRECTED PRN PRN Reason: Keep Vein Open Last Admin: 04/16/19 10:15 Dose: 2.5 ml
[2019-04-16] MEDS ORDERED: Albuterol 8 GM Inhaler INH PRN (13:20)
[2019-04-16] MEDS ORDERED: Labetalol 100 MG Tab PO SCH ×3 (13:30→21:00)
[2019-04-16] MEDS: Metoprolol Tartrate 25 MG Tab PO SCH ×2 (13:52→23:26)
[2019-04-16 14:29] LABS: HEMOGLOBIN A1C 5.6 % (4.5-6.2)
[2019-04-16] MEDS: hydrALAZINE 10 MG Tab PO SCH ×2 (15:29→21:24)
[2019-04-16] MEDS: Albuterol/Ipratropium 3.0-0.5 MG/3 ML Neb Soln NEB PRN (15:41)
[2019-04-16] MEDS: Acetaminophen 325 MG Tab PO PRN (15:55)
[2019-04-16] MEDS ORDERED: cloNIDine 0.1 MG Tab PO PRN (23:12)
[2019-04-17] MEDS: Metoprolol Tartrate 25 MG Tab PO SCH (03:33)
[2019-04-17] MEDS: hydrALAZINE 10 MG Tab PO SCH ×2 (03:42→08:50)
[2019-04-17 06:22] LABS: CHLORIDE,CL 101 mmol/L (98-107); SODIUM,NA 135 mmol/L (136-148)
[2019-04-17] MEDS: Albuterol/Ipratropium 3.0-0.5 MG/3 ML Neb Soln NEB PRN (07:33)
--- NOTE | 2019-04-17 09:46 | PCM.DCSUM1 ---
<Farhan Patel - Last Filed: 04/17/19 09:43> Discharge Summary - Hospital Course Free Text/Narrative:: 38 y/o male with history of asthma and hypertension who presented to the ER complaining of shortness of breath. He had not been taking his medications since moving to [place] approximately 1 week ago. He was found to by hypertensive SBP 180's. He was admitted for acute asthma exacerbation and hypertensive urgency. He was treated with Duonebs which helped his wheezing and started on antihypertensives: metoprolol 25 mg PO BID, Hydralazine 10 mg PO Q6H. His blood pressure decreased and remained SBP 150-180s. He denied any headaches, chest pain, dyspnea. Prescriptions were sent to his pharmacy and instructed to follow-up with his PCP. - Discharge Data Discharge Date: 04/17/19 Discharge Disposition: Home, Self-Care 01 Condition: Good - Patient Instructions Diet: Regular Diet as Tolerated Activity: As Tolerated Notify Provider of: Fever, Increased Pain, Swelling and Redness, Nausea and/or Vomiting - Discharge Plan *PRESCRIPTION DRUG MONITORING PROGRAM REVIEWED*: Not Applicable *COPY OF PRESCRIPTION DRUG MONITORING REPORT IN PATIENT GIANFRANCO: Not Applicable Prescriptions/Med Rec: Albuterol [Ventolin HFA] 2 puff INH Q4H PRN #2 inhaler PRN Reason: Wheezing hydrALAZINE [Apresoline] 10 mg PO Q6H 30 Days #120 tablet Metoprolol Tartrate [Lopressor] 25 mg PO Q12H 30 Days #60 tablet Home Medications: Home Meds amLODIPine [Norvasc] 10 mg PO DAILY 04/16/19 [History] Albuterol [Ventolin HFA] 2 puff INH Q4H PRN #2 inhaler 04/17/19 [Rx] Metoprolol Tartrate [Lopressor] 25 mg PO Q12H 30 Days #60 tablet 04/17/19 [Rx] hydrALAZINE [Apresoline] 10 mg PO Q6H 30 Days #120 tablet 04/17/19 [Rx] Patient Handouts: Asthma, Adult, Metoprolol tablets, Hydralazine; Isosorbide Dinitrate, ISDN tablet, Albuterol inhalation aerosol, Preventing Hypertension Referrals: Farhan Patel MD [Resident] - 04/24/19 3:30 pm - Discharge Summary/Plan Comment DC Time >30 min.: No - Patient Data Vitals - Most Recent: Last Vital Signs Temp 36.2 C 04/17/19 08:00 Pulse 71 04/17/19 08:00 Resp 19 04/17/19 08:00 BP 187/133 H 04/17/19 08:50 Pulse Ox 97 04/17/19 08:00 Weight - Most Recent: 102.512 kg I&O - Last 24 hours: Intake & Output 04/16/19 04/17/19 04/17/19 22:59 06:59 14:59 Intake Total 200 1860 Output Total 600 350 Balance -400 1510 Lab Results - Last 24 hrs: Laboratory Results - last 24 hr 04/16/19 04/16/19 04/16/19 Range/Units 10:07 10:09 10:09 WBC 9.44 (4.0-11.0) K/uL RBC 5.46 (4.50-5.90) M/uL Hgb 15.6 (13.0-17.0) g/dL Hct 45.7 (38.0-50.0) % MCV 83.7 (80.0-98.0) fL MCH 28.6 (27.0-32.0) pg MCHC 34.1 (31.0-37.0) g/dL RDW Std Deviation 41.6 (28.0-62.0) fl RDW Coeff of Cathleen 14 (11.0-15.0) % Plt Count 232 (150-400) K/uL MPV 10.70 (7.40-12.00) fL Neut % (Auto) 56.7 (48.0-80.0) % Lymph % (Auto) 25.7 (16.0-40.0) % [place] % (Auto) 6.1 (0.0-15.0) % Eos % (Auto) 11.1 H (0.0-7.0) % Baso % (Auto) 0.4 (0.0-1.5) % Neut # (Auto) 5.3 (1.4-5.7) K/uL Lymph # (Auto) 2.4 (0.6-2.4) K/uL [place] # (Auto) 0.6 (0.0-0.8) K/uL Eos # (Auto) 1.1 H (0.0-0.7) K/uL Baso # (Auto) 0.0 (0.0-0.1) K/uL Nucleated RBC % 0.0 /100WBC Nucleated RBCs # 0 K/uL INR Sodium (136-148) mmol/L Potassium (3.5-5.1) mmol/L Chloride (98-107) mmol/L Carbon Dioxide (21.0-32.0) mmol/L BUN (7.0-18.0) mg/dL Creatinine (0.8-1.3) mg/dL Est Cr Clr Drug Dosing mL/min Estimated GFR (MDRD) ml/min Glucose (74-106) mg/dL Hemoglobin A1c (4.5-6.2) % Calcium (8.5-10.1) mg/dL Total Bilirubin (0.2-1.0) mg/dL AST (15-37) IU/L ALT (14-63) IU/L Alkaline Phosphatase (46-116) U/L Troponin I (0.000-0.056) ng/mL B-Natriuretic Peptide 40 (<100) PG/ML Total Protein (6.4-8.2) g/dL Albumin (3.4-5.0) g/dL Globulin (2.6-4.0) g/dL Albumin/Globulin Ratio (0.9-1.6) Triglycerides 67 (0-200) mg/dL Cholesterol 176 (50-200) mg/dL LDL Cholesterol, Calc 118 (60-180) mg/dL VLDL Cholesterol 13 (5-55) mg/dL HDL Cholesterol 45 (40-60) mg/dL Cholesterol/HDL Ratio 3.9 (3.3-6.0) TSH 3rd Generation (0.36-3.74) uIU/mL Urine Color Urine Appearance Urine pH (5.0-8.0) Ur Specific [place] (1.001-1.035) Urine Protein (NEGATIVE) mg/dL Urine Glucose (UA) (NEGATIVE) mg/dL Urine Ketones (NEGATIVE) mg/dL Urine Occult Blood (NEGATIVE) Urine Nitrite (NEGATIVE) Urine Bilirubin (NEGATIVE) Urine Urobilinogen (<2.0) EU/dL Ur Leukocyte Esterase (NEGATIVE) Urine RBC (0-2/HPF) Urine WBC (0-5/HPF) Ur Epithelial Cells (NONE-FEW) Amorphous Sediment (NEGATIVE) Urine Bacteria (NEGATIVE) Urine Opiates Screen (NEGATIVE) Ur Oxycodone Screen (NEGATIVE) Urine Methadone Screen (NEGATIVE) Ur Barbiturates Screen (NEGATIVE) Ur Phencyclidine Scrn (NEGATIVE) Ur Amphetamine Screen (NEGATIVE) U Methamphetamines Scrn (NEGATIVE) U Benzodiazepines Scrn (NEGATIVE) U Cocaine Metab Screen (NEGATIVE) U Marijuana (THC) Screen (NEGATIVE) 04/16/19 04/16/19 04/16/19 Range/Units 10:09 10:09 10:09 WBC (4.0-11.0) K/uL RBC (4.50-5.90) M/uL Hgb (13.0-17.0) g/dL Hct (38.0-50.0) % MCV (80.0-98.0) fL MCH (27.0-32.0) pg MCHC (31.0-37.0) g/dL RDW Std Deviation (28.0-62.0) fl RDW Coeff of Cathleen (11.0-15.0) % Plt Count (150-400) K/uL MPV (7.40-12.00) fL Neut % (Auto) (48.0-80.0) % Lymph % (Auto) (16.0-40.0) % [place] % (Auto) (0.0-15.0) % Eos % (Auto) (0.0-7.0) % Baso % (Auto) (0.0-1.5) % Neut # (Auto) (1.4-5.7) K/uL Lymph # (Auto) (0.6-2.4) K/uL [place] # (Auto) (0.0-0.8) K/uL Eos # (Auto) (0.0-0.7) K/uL Baso # (Auto) (0.0-0.1) K/uL Nucleated RBC % /100WBC Nucleated RBCs # K/uL INR 1.00 Sodium 136 (136-148) mmol/L Potassium 3.3 L (3.5-5.1) mmol/L Chloride 101 (98-107) mmol/L Carbon Dioxide 25.9 (21.0-32.0) mmol/L BUN 14 (7.0-18.0) mg/dL Creatinine 0.9 (0.8-1.3) mg/dL Est Cr Clr Drug Dosing 120.85 mL/min Estimated GFR (MDRD) > 60.0 ml/min Glucose 101 (74-106) mg/dL Hemoglobin A1c (4.5-6.2) % Calcium 8.6 (8.5-10.1) mg/dL Total Bilirubin 0.7 (0.2-1.0) mg/dL AST 26 (15-37) IU/L ALT 48 (14-63) IU/L Alkaline Phosphatase 88 (46-116) U/L Troponin I < 0.050 (0.000-0.056) ng/mL B-Natriuretic Peptide (<100) PG/ML Total Protein 8.2 (6.4-8.2) g/dL Albumin 4.4 (3.4-5.0) g/dL Globulin 3.8 (2.6-4.0) g/dL Albumin/Globulin Ratio 1.2 (0.9-1.6) Triglycerides (0-200) mg/dL Cholesterol (50-200) mg/dL LDL Cholesterol, Calc (60-180) mg/dL VLDL Cholesterol (5-55) mg/dL HDL Cholesterol (40-60) mg/dL Cholesterol/HDL Ratio (3.3-6.0) TSH 3rd Generation 0.73 (0.36-3.74) uIU/mL Urine Color Urine Appearance Urine pH (5.0-8.0) Ur Specific [place] (1.001-1.035) Urine Protein (NEGATIVE) mg/dL Urine Glucose (UA) (NEGATIVE) mg/dL Urine Ketones (NEGATIVE) mg/dL Urine Occult Blood (NEGATIVE) Urine Nitrite (NEGATIVE) Urine Bilirubin (NEGATIVE) Urine Urobilinogen (<2.0) EU/dL Ur Leukocyte Esterase (NEGATIVE) Urine RBC (0-2/HPF) Urine WBC (0-5/HPF) Ur Epithelial Cells (NONE-FEW) Amorphous Sediment (NEGATIVE) Urine Bacteria (NEGATIVE) Urine Opiates Screen (NEGATIVE) Ur Oxycodone Screen (NEGATIVE) Urine Methadone Screen (NEGATIVE) Ur Barbiturates Screen (NEGATIVE) Ur Phencyclidine Scrn (NEGATIVE) Ur Amphetamine Screen (NEGATIVE) U Methamphetamines Scrn (NEGATIVE) U Benzodiazepines Scrn (NEGATIVE) U Cocaine Metab Screen (NEGATIVE) U Marijuana (THC) Screen (NEGATIVE) 04/16/19 04/16/19 04/16/19 Range/Units 14:03 15:35 15:35 WBC (4.0-11.0) K/uL RBC (4.50-5.90) M/uL Hgb (13.0-17.0) g/dL Hct (38.0-50.0) % MCV (80.0-98.0) fL MCH (27.0-32.0) pg MCHC (31.0-37.0) g/dL RDW Std Deviation (28.0-62.0) fl RDW Coeff of Cathleen (11.0-15.0) % Plt Count (150-400) K/uL MPV (7.40-12.00) fL Neut % (Auto) (48.0-80.0) % Lymph % (Auto) (16.0-40.0) % [place] % (Auto) (0.0-15.0) % Eos % (Auto) (0.0-7.0) % Baso % (Auto) (0.0-1.5) % Neut # (Auto) (1.4-5.7) K/uL Lymph # (Auto) (0.6-2.4) K/uL [place] # (Auto) (0.0-0.8) K/uL Eos # (Auto) (0.0-0.7) K/uL Baso # (Auto) (0.0-0.1) K/uL Nucleated RBC % /100WBC Nucleated RBCs # K/uL INR Sodium (136-148) mmol/L Potassium (3.5-5.1) mmol/L Chloride (98-107) mmol/L Carbon Dioxide (21.0-32.0) mmol/L BUN (7.0-18.0) mg/dL Creatinine (0.8-1.3) mg/dL Est Cr Clr Drug Dosing mL/min Estimated GFR (MDRD) ml/min Glucose (74-106) mg/dL Hemoglobin A1c 5.6 (4.5-6.2) % Calcium (8.5-10.1) mg/dL Total Bilirubin (0.2-1.0) mg/dL AST (15-37) IU/L ALT (14-63) IU/L Alkaline Phosphatase (46-116) U/L Troponin I (0.000-0.056) ng/mL B-Natriuretic Peptide (<100) PG/ML Total Protein (6.4-8.2) g/dL Albumin (3.4-5.0) g/dL Globulin (2.6-4.0) g/dL Albumin/Globulin Ratio (0.9-1.6) Triglycerides (0-200) mg/dL Cholesterol (50-200) mg/dL LDL Cholesterol, Calc (60-180) mg/dL VLDL Cholesterol (5-55) mg/dL HDL Cholesterol (40-60) mg/dL Cholesterol/HDL Ratio (3.3-6.0) TSH 3rd Generation (0.36-3.74) uIU/mL Urine Color YELLOW Urine Appearance SLT CLOUDY Urine pH 7.5 (5.0-8.0) Ur Specific [place] 1.015 (1.001-1.035) Urine Protein TRACE H (NEGATIVE) mg/dL Urine Glucose (UA) 100 H (NEGATIVE) mg/dL Urine Ketones NEGATIVE (NEGATIVE) mg/dL Urine Occult Blood NEGATIVE (NEGATIVE) Urine Nitrite NEGATIVE (NEGATIVE) Urine Bilirubin NEGATIVE (NEGATIVE) Urine Urobilinogen 0.2 (<2.0) EU/dL Ur Leukocyte Esterase NEGATIVE (NEGATIVE) Urine RBC 0-1 (0-2/HPF) Urine WBC 0-2 (0-5/HPF) Ur Epithelial Cells RARE (NONE-FEW) Amorphous Sediment MODERATE (NEGATIVE) Urine Bacteria FEW (NEGATIVE) Urine Opiates Screen NEGATIVE (NEGATIVE) Ur Oxycodone Screen NEGATIVE (NEGATIVE) Urine Methadone Screen NEGATIVE (NEGATIVE) Ur Barbiturates Screen NEGATIVE (NEGATIVE) Ur Phencyclidine Scrn NEGATIVE (NEGATIVE) Ur Amphetamine Screen NEGATIVE (NEGATIVE) U Methamphetamines Scrn NEGATIVE (NEGATIVE) U Benzodiazepines Scrn NEGATIVE (NEGATIVE) U Cocaine Metab Screen NEGATIVE (NEGATIVE) U Marijuana (THC) Screen NEGATIVE (NEGATIVE) 04/17/19 04/17/19 Range/Units 05:20 05:20 WBC 15.11 H (4.0-11.0) K/uL RBC 5.18 (4.50-5.90) M/uL Hgb 14.8 (13.0-17.0) g/dL Hct 43.5 (38.0-50.0) % MCV 84.0 (80.0-98.0) fL MCH 28.6 (27.0-32.0) pg MCHC 34.0 (31.0-37.0) g/dL RDW Std Deviation 41.9 (28.0-62.0) fl RDW Coeff of Cathleen 14 (11.0-15.0) % Plt Count 233 (150-400) K/uL MPV 11.30 (7.40-12.00) fL Neut % (Auto) 78.0 (48.0-80.0) % Lymph % (Auto) 15.8 L (16.0-40.0) % [place] % (Auto) 5.9 (0.0-15.0) % Eos % (Auto) 0.2 (0.0-7.0) % Baso % (Auto) 0.1 (0.0-1.5) % Neut # (Auto) 11.8 H (1.4-5.7) K/uL Lymph # (Auto) 2.4 (0.6-2.4) K/uL [place] # (Auto) 0.9 H (0.0-0.8) K/uL Eos # (Auto) 0.0 (0.0-0.7) K/uL Baso # (Auto) 0.0 (0.0-0.1) K/uL Nucleated RBC % 0.0 /100WBC Nucleated RBCs # 0 K/uL INR Sodium 135 L (136-148) mmol/L Potassium 3.6 (3.5-5.1) mmol/L Chloride 101 (98-107) mmol/L Carbon Dioxide 26.0 (21.0-32.0) mmol/L BUN 18 (7.0-18.0) mg/dL Creatinine 1.1 (0.8-1.3) mg/dL Est Cr Clr Drug Dosing 98.88 mL/min Estimated GFR (MDRD) > 60.0 ml/min Glucose 107 H (74-106) mg/dL Hemoglobin A1c (4.5-6.2) % Calcium 9.0 (8.5-10.1) mg/dL Total Bilirubin (0.2-1.0) mg/dL AST (15-37) IU/L ALT (14-63) IU/L Alkaline Phosphatase (46-116) U/L Troponin I (0.000-0.056) ng/mL B-Natriuretic Peptide (<100) PG/ML Total Protein (6.4-8.2) g/dL Albumin (3.4-5.0) g/dL Globulin (2.6-4.0) g/dL Albumin/Globulin Ratio (0.9-1.6) Triglycerides (0-200) mg/dL Cholesterol (50-200) mg/dL LDL Cholesterol, Calc (60-180) mg/dL VLDL Cholesterol (5-55) mg/dL HDL Cholesterol (40-60) mg/dL Cholesterol/HDL Ratio (3.3-6.0) TSH 3rd Generation (0.36-3.74) uIU/mL Urine Color Urine Appearance Urine pH (5.0-8.0) Ur Specific [place] (1.001-1.035) Urine Protein (NEGATIVE) mg/dL Urine Glucose (UA) (NEGATIVE) mg/dL Urine Ketones (NEGATIVE) mg/dL Urine Occult Blood (NEGATIVE) Urine Nitrite (NEGATIVE) Urine Bilirubin (NEGATIVE) Urine Urobilinogen (<2.0) EU/dL Ur Leukocyte Esterase (NEGATIVE) Urine RBC (0-2/HPF) Urine WBC (0-5/HPF) Ur Epithelial Cells (NONE-FEW) Amorphous Sediment (NEGATIVE) Urine Bacteria (NEGATIVE) Urine Opiates Screen (NEGATIVE) Ur Oxycodone Screen (NEGATIVE) Urine Methadone Screen (NEGATIVE) Ur Barbiturates Screen (NEGATIVE) Ur Phencyclidine Scrn (NEGATIVE) Ur Amphetamine Screen (NEGATIVE) U Methamphetamines Scrn (NEGATIVE) U Benzodiazepines Scrn (NEGATIVE) U Cocaine Metab Screen (NEGATIVE) U Marijuana (THC) Screen (NEGATIVE) Med Orders - Current: Current Medications Acetaminophen (Tylenol) 650 mg PO Q4H PRN PRN Reason: Pain (Mild 1-3)/fever Last Admin: 04/16/19 15:55 Dose: 650 mg Albuterol (Ventolin Hfa) 0 gm INH Q4H PRN PRN Reason: Wheezing Albuterol/Ipratropium (Duoneb 3.0-0.5 Mg/3 Ml) 3 ml NEB Q4HRRT PRN PRN Reason: Shortness of Breath Last Admin: 04/17/19 07:33 Dose: 3 ml Clonidine HCl (Catapres) 0.3 mg PO Q8H PRN PRN Reason: SBP >160 Last Admin: 04/16/19 23:30 Dose: 0.3 mg Enoxaparin Sodium (Lovenox) 40 mg SUBCUT Q24H [facility] Last Admin: 04/16/19 13:42 Dose: 40 mg Hydralazine HCl (Apresoline) 10 mg PO Q6H [facility] Last Admin: 04/17/19 08:50 Dose: 10 mg Ketorolac Tromethamine (Toradol) 30 mg IVPUSH Q6H PRN PRN Reason: Pain (moderate 4-6) Metoprolol Tartrate (Lopressor) 25 mg PO Q12H [facility] Last Admin: 04/17/19 03:33 Dose: Not Given Ondansetron HCl (Zofran Odt) 4 mg PO Q4H PRN PRN Reason: nausea, able to take PO Sodium Chloride (Saline Flush) 10 ml FLUSH ASDIRECTED PRN PRN Reason: Keep Vein Open Last Admin: 04/16/19 10:15 Dose: 10 ml Sodium Chloride (Saline Flush) 2.5 ml FLUSH ASDIRECTED PRN PRN Reason: Keep Vein Open Last Admin: 04/16/19 10:15 Dose: 2.5 ml Discontinued Medications Albuterol/Ipratropium (Duoneb 3.0-0.5 Mg/3 Ml) 3 ml NEB ONETIME ONE Stop: 04/16/19 10:13 Last Admin: 04/16/19 10:19 Dose: 3 ml Albuterol/Ipratropium (Duoneb 3.0-0.5 Mg/3 Ml) Confirm Administered Dose 3 ml .ROUTE .STK-MED ONE Stop: 04/16/19 10:12 Last Admin: 04/16/19 10:20 Dose: Not Given Hydralazine HCl (Apresoline) 10 mg IVPUSH ONETIME ONE Stop: 04/16/19 10:06 Last Admin: 04/16/19 10:15 Dose: 10 mg Labetalol HCl (Normodyne) 10 mg PO DAILY [facility] Labetalol HCl (Normodyne) 100 mg PO DAILY [facility] Labetalol HCl (Normodyne) 100 mg PO BID [facility] Methylprednisolone Sodium Succinate (Solu-Medrol) 125 mg IVPUSH ONETIME ONE Stop: 04/16/19 10:13 Last Admin: 04/16/19 10:18 Dose: 125 mg Metoprolol Succinate (Toprol Xl) 100 mg PO ONETIME ONE Stop: 04/16/19 10:07 Last Admin: 04/16/19 10:16 Dose: 100 mg <Hua Cano - Last Filed: 04/17/19 12:26> Discharge Summary - Hospital Course HPI Initial Comments: I have seen and examined to patient independently of medical billing and coding instructor, Farhan Montero MD. I have discussed the case for care of this patient with him. I have reviewed and approve of the plan of care as outlined by medical billing and coding instructor. Please see orders. - Patient Data Vitals - Most Recent: Last Vital Signs Temp 36.2 C 04/17/19 08:00 Pulse 71 04/17/19 08:00 Resp 19 04/17/19 08:00 BP 187/133 H 04/17/19 08:50 Pulse Ox 97 04/17/19 08:00 I&O - Last 24 hours: Intake & Output 04/16/19 04/17/19 04/17/19 22:59 06:59 14:59 Intake Total 200 1860 500 Output Total 600 350 650 Balance -400 1510 -150 Lab Results - Last 24 hrs: Laboratory Results - last 24 hr 04/16/19 04/16/19 04/16/19 Range/Units 10:07 10:09 14:03 WBC (4.0-11.0) K/uL RBC (4.50-5.90) M/uL Hgb (13.0-17.0) g/dL Hct (38.0-50.0) % MCV (80.0-98.0) fL MCH (27.0-32.0) pg MCHC (31.0-37.0) g/dL RDW Std Deviation (28.0-62.0) fl RDW Coeff of Cathleen (11.0-15.0) % Plt Count (150-400) K/uL MPV (7.40-12.00) fL Neut % (Auto) (48.0-80.0) % Lymph % (Auto) (16.0-40.0) % [place] % (Auto) (0.0-15.0) % Eos % (Auto) (0.0-7.0) % Baso % (Auto) (0.0-1.5) % Neut # (Auto) (1.4-5.7) K/uL Lymph # (Auto) (0.6-2.4) K/uL [place] # (Auto) (0.0-0.8) K/uL Eos # (Auto) (0.0-0.7) K/uL Baso # (Auto) (0.0-0.1) K/uL Nucleated RBC % /100WBC Nucleated RBCs # K/uL Sodium (136-148) mmol/L Potassium (3.5-5.1) mmol/L Chloride (98-107) mmol/L Carbon Dioxide (21.0-32.0) mmol/L BUN (7.0-18.0) mg/dL Creatinine (0.8-1.3) mg/dL Est Cr Clr Drug Dosing mL/min Estimated GFR (MDRD) ml/min Glucose (74-106) mg/dL Hemoglobin A1c 5.6 (4.5-6.2) % Calcium (8.5-10.1) mg/dL Triglycerides 67 (0-200) mg/dL Cholesterol 176 (50-200) mg/dL LDL Cholesterol, Calc 118 (60-180) mg/dL VLDL Cholesterol 13 (5-55) mg/dL HDL Cholesterol 45 (40-60) mg/dL Cholesterol/HDL Ratio 3.9 (3.3-6.0) TSH 3rd Generation 0.73 (0.36-3.74) uIU/mL Urine Color Urine Appearance Urine pH (5.0-8.0) Ur Specific [place] (1.001-1.035) Urine Protein (NEGATIVE) mg/dL Urine Glucose (UA) (NEGATIVE) mg/dL Urine Ketones (NEGATIVE) mg/dL Urine Occult Blood (NEGATIVE) Urine Nitrite (NEGATIVE) Urine Bilirubin (NEGATIVE) Urine Urobilinogen (<2.0) EU/dL Ur Leukocyte Esterase (NEGATIVE) Urine RBC (0-2/HPF) Urine WBC (0-5/HPF) Ur Epithelial Cells (NONE-FEW) Amorphous Sediment (NEGATIVE) Urine Bacteria (NEGATIVE) Urine Opiates Screen (NEGATIVE) Ur Oxycodone Screen (NEGATIVE) Urine Methadone Screen (NEGATIVE) Ur Barbiturates Screen (NEGATIVE) Ur Phencyclidine Scrn (NEGATIVE) Ur Amphetamine Screen (NEGATIVE) U Methamphetamines Scrn (NEGATIVE) U Benzodiazepines Scrn (NEGATIVE) U Cocaine Metab Screen (NEGATIVE) U Marijuana (THC) Screen (NEGATIVE) 04/16/19 04/16/19 04/17/19 Range/Units 15:35 15:35 05:20 WBC 15.11 H (4.0-11.0) K/uL RBC 5.18 (4.50-5.90) M/uL Hgb 14.8 (13.0-17.0) g/dL Hct 43.5 (38.0-50.0) % MCV 84.0 (80.0-98.0) fL MCH 28.6 (27.0-32.0) pg MCHC 34.0 (31.0-37.0) g/dL RDW Std Deviation 41.9 (28.0-62.0) fl RDW Coeff of Cathleen 14 (11.0-15.0) % Plt Count 233 (150-400) K/uL MPV 11.30 (7.40-12.00) fL Neut % (Auto) 78.0 (48.0-80.0) % Lymph % (Auto) 15.8 L (16.0-40.0) % [place] % (Auto) 5.9 (0.0-15.0) % Eos % (Auto) 0.2 (0.0-7.0) % Baso % (Auto) 0.1 (0.0-1.5) % Neut # (Auto) 11.8 H (1.4-5.7) K/uL Lymph # (Auto) 2.4 (0.6-2.4) K/uL [place] # (Auto) 0.9 H (0.0-0.8) K/uL Eos # (Auto) 0.0 (0.0-0.7) K/uL Baso # (Auto) 0.0 (0.0-0.1) K/uL Nucleated RBC % 0.0 /100WBC Nucleated RBCs # 0 K/uL Sodium (136-148) mmol/L Potassium (3.5-5.1) mmol/L Chloride (98-107) mmol/L Carbon Dioxide (21.0-32.0) mmol/L BUN (7.0-18.0) mg/dL Creatinine (0.8-1.3) mg/dL Est Cr Clr Drug Dosing mL/min Estimated GFR (MDRD) ml/min Glucose (74-106) mg/dL Hemoglobin A1c (4.5-6.2) % Calcium (8.5-10.1) mg/dL Triglycerides (0-200) mg/dL Cholesterol (50-200) mg/dL LDL Cholesterol, Calc (60-180) mg/dL VLDL Cholesterol (5-55) mg/dL HDL Cholesterol (40-60) mg/dL Cholesterol/HDL Ratio (3.3-6.0) TSH 3rd Generation (0.36-3.74) uIU/mL Urine Color YELLOW Urine Appearance SLT CLOUDY Urine pH 7.5 (5.0-8.0) Ur Specific [place] 1.015 (1.001-1.035) Urine Protein TRACE H (NEGATIVE) mg/dL Urine Glucose (UA) 100 H (NEGATIVE) mg/dL Urine Ketones NEGATIVE (NEGATIVE) mg/dL Urine Occult Blood NEGATIVE (NEGATIVE) Urine Nitrite NEGATIVE (NEGATIVE) Urine Bilirubin NEGATIVE (NEGATIVE) Urine Urobilinogen 0.2 (<2.0) EU/dL Ur Leukocyte Esterase NEGATIVE (NEGATIVE) Urine RBC 0-1 (0-2/HPF) Urine WBC 0-2 (0-5/HPF) Ur Epithelial Cells RARE (NONE-FEW) Amorphous Sediment MODERATE (NEGATIVE) Urine Bacteria FEW (NEGATIVE) Urine Opiates Screen NEGATIVE (NEGATIVE) Ur Oxycodone Screen NEGATIVE (NEGATIVE) Urine Methadone Screen NEGATIVE (NEGATIVE) Ur Barbiturates Screen NEGATIVE (NEGATIVE) Ur Phencyclidine Scrn NEGATIVE (NEGATIVE) Ur Amphetamine Screen NEGATIVE (NEGATIVE) U Methamphetamines Scrn NEGATIVE (NEGATIVE) U Benzodiazepines Scrn NEGATIVE (NEGATIVE) U Cocaine Metab Screen NEGATIVE (NEGATIVE) U Marijuana (THC) Screen NEGATIVE (NEGATIVE) 04/17/19 Range/Units 05:20 WBC (4.0-11.0) K/uL RBC (4.50-5.90) M/uL Hgb (13.0-17.0) g/dL Hct (38.0-50.0) % MCV (80.0-98.0) fL MCH (27.0-32.0) pg MCHC (31.0-37.0) g/dL RDW Std Deviation (28.0-62.0) fl RDW Coeff of Cathleen (11.0-15.0) % Plt Count (150-400) K/uL MPV (7.40-12.00) fL Neut % (Auto) (48.0-80.0) % Lymph % (Auto) (16.0-40.0) % [place] % (Auto) (0.0-15.0) % Eos % (Auto) (0.0-7.0) % Baso % (Auto) (0.0-1.5) % Neut # (Auto) (1.4-5.7) K/uL Lymph # (Auto) (0.6-2.4) K/uL [place] # (Auto) (0.0-0.8) K/uL Eos # (Auto) (0.0-0.7) K/uL Baso # (Auto) (0.0-0.1) K/uL Nucleated RBC % /100WBC Nucleated RBCs # K/uL Sodium 135 L (136-148) mmol/L Potassium 3.6 (3.5-5.1) mmol/L Chloride 101 (98-107) mmol/L Carbon Dioxide 26.0 (21.0-32.0) mmol/L BUN 18 (7.0-18.0) mg/dL Creatinine 1.1 (0.8-1.3) mg/dL Est Cr Clr Drug Dosing 98.88 mL/min Estimated GFR (MDRD) > 60.0 ml/min Glucose 107 H (74-106) mg/dL Hemoglobin A1c (4.5-6.2) % Calcium 9.0 (8.5-10.1) mg/dL Triglycerides (0-200) mg/dL Cholesterol (50-200) mg/dL LDL Cholesterol, Calc (60-180) mg/dL VLDL Cholesterol (5-55) mg/dL HDL Cholesterol (40-60) mg/dL Cholesterol/HDL Ratio (3.3-6.0) TSH 3rd Generation (0.36-3.74) uIU/mL Urine Color Urine Appearance Urine pH (5.0-8.0) Ur Specific [place] (1.001-1.035) Urine Protein (NEGATIVE) mg/dL Urine Glucose (UA) (NEGATIVE) mg/dL Urine Ketones (NEGATIVE) mg/dL Urine Occult Blood (NEGATIVE) Urine Nitrite (NEGATIVE) Urine Bilirubin (NEGATIVE) Urine Urobilinogen (<2.0) EU/dL Ur Leukocyte Esterase (NEGATIVE) Urine RBC (0-2/HPF) Urine WBC (0-5/HPF) Ur Epithelial Cells (NONE-FEW) Amorphous Sediment (NEGATIVE) Urine Bacteria (NEGATIVE) Urine Opiates Screen (NEGATIVE) Ur Oxycodone Screen (NEGATIVE) Urine Methadone Screen (NEGATIVE) Ur Barbiturates Screen (NEGATIVE) Ur Phencyclidine Scrn (NEGATIVE) Ur Amphetamine Screen (NEGATIVE) U Methamphetamines Scrn (NEGATIVE) U Benzodiazepines Scrn (NEGATIVE) U Cocaine Metab Screen (NEGATIVE) U Marijuana (THC) Screen (NEGATIVE) Med Orders - Current: Current Medications Discontinued Medications Acetaminophen (Tylenol) 650 mg PO Q4H PRN PRN Reason: Pain (Mild 1-3)/fever Last Admin: 04/17/19 09:54 Dose: 650 mg Albuterol (Ventolin Hfa) 0 gm INH Q4H PRN PRN Reason: Wheezing Last Admin: 04/17/19 09:54 Dose: 2 puff Albuterol/Ipratropium (Duoneb 3.0-0.5 Mg/3 Ml) 3 ml NEB ONETIME ONE Stop: 04/16/19 10:13 Last Admin: 04/16/19 10:19 Dose: 3 ml Albuterol/Ipratropium (Duoneb 3.0-0.5 Mg/3 Ml) Confirm Administered Dose 3 ml .ROUTE .STK-MED ONE Stop: 04/16/19 10:12 Last Admin: 04/16/19 10:20 Dose: Not Given Albuterol/Ipratropium (Duoneb 3.0-0.5 Mg/3 Ml) 3 ml NEB Q4HRRT PRN PRN Reason: Shortness of Breath Last Admin: 04/17/19 07:33 Dose: 3 ml Clonidine HCl (Catapres) 0.3 mg PO Q8H PRN PRN Reason: SBP >160 Last Admin: 04/16/19 23:30 Dose: 0.3 mg Enoxaparin Sodium (Lovenox) 40 mg SUBCUT Q24H MALLIKA Last Admin: 04/16/19 13:42 Dose: 40 mg Hydralazine HCl (Apresoline) 10 mg IVPUSH ONETIME ONE Stop: 04/16/19 10:06 Last Admin: 04/16/19 10:15 Dose: 10 mg Hydralazine HCl (Apresoline) 10 mg PO Q6H [facility] Last Admin: 04/17/19 08:50 Dose: 10 mg Ketorolac Tromethamine (Toradol) 30 mg IVPUSH Q6H PRN PRN Reason: Pain (moderate 4-6) Labetalol HCl (Normodyne) 10 mg PO DAILY MALLIKA Labetalol HCl (Normodyne) 100 mg PO DAILY [facility] Labetalol HCl (Normodyne) 100 mg PO BID [facility] Methylprednisolone Sodium Succinate (Solu-Medrol) 125 mg IVPUSH ONETIME ONE Stop: 04/16/19 10:13 Last Admin: 04/16/19 10:18 Dose: 125 mg Metoprolol Succinate (Toprol Xl) 100 mg PO ONETIME ONE Stop: 04/16/19 10:07 Last Admin: 04/16/19 10:16 Dose: 100 mg Metoprolol Tartrate (Lopressor) 25 mg PO Q12H [facility] Last Admin: 04/17/19 03:33 Dose: Not Given Ondansetron HCl (Zofran Odt) 4 mg PO Q4H PRN PRN Reason: nausea, able to take PO Sodium Chloride (Saline Flush) 10 ml FLUSH ASDIRECTED PRN PRN Reason: Keep Vein Open Last Admin: 04/16/19 10:15 Dose: 10 ml Sodium Chloride (Saline Flush) 2.5 ml FLUSH ASDIRECTED PRN PRN Reason: Keep Vein Open Last Admin: 04/16/19 10:15 Dose: 2.5 ml
--- NOTE | 2019-04-17 09:48 | US ---
INDICATION: Hypertension TECHNIQUE: Grayscale and Doppler ultrasound of both kidneys performed. COMPARISON: None available FINDINGS: BILATERAL RENAL ARTERY DUPLEX ULTRASOUND No aortic aneurysm is present. RIGHT KIDNEY: 10.8 cm in length. There is no hydronephrosis. Resistive indices: Within normal limits, measuring less than 0.67 LEFT KIDNEY: 10.5 cm in length. There is no hydronephrosis. Peak systolic velocity = 46 cm/second Resistive indices: Within normal limits, measuring less than 0.68 IMPRESSION: No evidence of significant renal artery stenosis. No hydronephrosis. Dictated by Fuentes Bertrand MD @ Apr 17 2019 9:44AM Signed by Dr. Fuentes Bertrand @ Apr 17 2019 9:47AM
[2019-04-17] MEDS: Acetaminophen 325 MG Tab PO PRN (09:54)
--- NOTE | 2019-04-18 14:41 | US ---
EXAM DATE: 04/16/19 PATIENT'S AGE: 38 Patient: PAXTON LESTER Facility: [facility] Site . Site : 1980 Study: US-Abdomen [id number]/20/2019 9:11:00 AM Ordering Physician: Rachael Sequeira Final Report: INDICATION: Hypertension TECHNIQUE: Grayscale and Doppler ultrasound of both kidneys performed. COMPARISON: None available FINDINGS: BILATERAL RENAL ARTERY DUPLEX ULTRASOUND No aortic aneurysm is present. RIGHT KIDNEY: 10.8 cm in length. There is no hydronephrosis. Resistive indices: Within normal limits, measuring less than 0.67 LEFT KIDNEY: 10.5 cm in length. There is no hydronephrosis. Peak systolic velocity = 46 cm/second Resistive indices: Within normal limits, measuring less than 0.68 IMPRESSION: No evidence of significant renal artery stenosis. No hydronephrosis. Dictated by Fuentes Bertrand MD @ Apr 17 2019 9:44AM Signed by: Fuentes Bertrand MD @04/17/2019 9:47:09 AM (Electronic Signature) Report Signed by Proxy. [facility]
== END 2019-04-17 10:15 | disposition home or self-care (01) ==
LOC: MW.ED 09:54 → MW.MS 12:10
PROVIDERS: ADMIT Internal Medicine; ATTEND Internal Medicine
DX: J45.901 Unspecified asthma with (acute) exacerbation (principal); I16.0 Hypertensive urgency; E87.6 Hypokalemia; I10 Essential (primary) hypertension; G47.30 Sleep apnea, unspecified; Z88.8 Allergy status to other drugs, medicaments and biological substances; Z91.14 Patient's other noncompliance with medication regimen; Z79.899 Other long term (current) drug therapy
CPT/HCPCS: 36415; 71045; 71045-26; 76770; 76770-26; 80048; 80053; 80061; 80305-QW; 81001; 83036; 83880; 84443; 84484; 85025; 85610; 93005; 93306; 93976; 93976-26; 94640; 96372; 96374; 96375; 99284; 99285-25; A9270-GY; G0378; J0360; J1650; J2930; J7620-GY

== ENCOUNTER 2019-09-06 17:44 | Inpatient (IN) | payer MEDICAID, OTHER ==
[2019-09-06] MEDS ORDERED: Sodium Chloride 0.9% 10 ML Syringe FLUSH PRN (17:54)
[2019-09-06] MEDS ORDERED: Sodium Chloride 0.9% 2.5 ML Syringe FLUSH PRN (17:54)
--- NOTE | 2019-09-06 17:54 | EDM.PDOC ---
ED HPI GENERAL MEDICAL PROBLEM - General Chief Complaint: Cardiovascular Problem Stated Complaint: BLOOD PRESSURE Time Seen by Provider: 09/06/19 17:49 Source of Information: Reports: Patient History Limitations: Reports: No Limitations - History of Present Illness INITIAL COMMENTS - FREE TEXT/NARRATIVE: HISTORY AND PHYSICAL: History of present illness: Patient is a 39-year-old male presents to the ED with complaint of headache and high blood pressure. Patient states he left his blood pressure medication at home in [place] 1 week ago. He thinks his headache is due to the elevated blood pressure. He denies fevers, chills, nausea, vomiting, chest pain , shortness of breath, visual changes, head injury or trauma. Review of systems: As per history of present illness and below otherwise all systems reviewed and negative. Past medical history: As per history of present illness and as reviewed below otherwise noncontributory. Surgical history: As per history of present illness and as reviewed below otherwise noncontributory. Social history: No reported history of drug or alcohol abuse. Family history: As per history of present illness and as reviewed below otherwise noncontributory. Physical exam: General: Patient sitting comfortably in no acute distress and nontoxic appearing HEENT: Atraumatic, normocephalic, pupils reactive, negative for conjunctival pallor or scleral icterus, mucous membranes moist, throat clear, neck supple, nontender, trachea midline. No meningeal signs. Lungs: Clear to auscultation, breath sounds equal bilaterally, chest nontender. Heart: S1S2, regular, negative for clicks, rubs, or overt murmur. Abdomen: Soft, nondistended, nontender. Negative for masses or hepatosplenomegaly. Negative for costovertebral tenderness. No rigidity, rebound , guarding. Pelvis: Stable nontender. Genitourinary: Deferred. Rectal: Deferred. Extremities: Atraumatic, negative for cords or calf pain. Neurovascular unremarkable. Neuro: Awake, alert, oriented. Cranial nerves II through XII unremarkable. Cerebellum unremarkable. Motor and sensory unremarkable throughout. Exam nonfocal. Notes: Patient has no improvement in headache or blood pressure with therapeutics. He will be admitted to ICU for hypertensive urgency. Diagnostics: CBC, CMP, Troponin, EKG, Head CT Therapeutics: 1L NS IV 20mg Labetalol IV x 2 10mg Hydralazine x 2 2mg Morphine IV Prescriptions: Impression: Hypertensive urgency Plan: Patient admitted to Dr. Martinez for hypertensive urgency Definitive disposition and diagnosis as appropriate pending reevaluation and review of above. headache Pain Score (Numeric/FACES): 8 - Related Data Allergies Allergy/AdvReac Type Severity Reaction Status Date / Time lisinopril Allergy Swelling Verified 09/07/19 02:28 Home Meds: Home Meds amLODIPine [Norvasc] 10 mg PO DAILY 04/16/19 [History] Albuterol [Ventolin HFA] 2 puff INH Q4H PRN #2 inhaler 04/17/19 [Rx] Metoprolol Tartrate [Lopressor] 25 mg PO Q12H 30 Days #60 tablet 04/17/19 [Rx] hydrALAZINE [Apresoline] 10 mg PO Q6H 30 Days #120 tablet 04/17/19 [Rx] Past Medical History HEENT History: Reports: None Cardiovascular History: Reports: Hypertension Respiratory History: Reports: Asthma, Sleep Apnea Gastrointestinal History: Reports: None Genitourinary History: Reports: None Musculoskeletal History: Reports: None Neurological History: Reports: Headaches, Chronic Psychiatric History: Reports: None Endocrine/Metabolic History: Reports: None Hematologic History: Reports: None Immunologic History: Reports: None Oncologic (Cancer) History: Reports: None Dermatologic History: Reports: None - Infectious Disease History Infectious Disease History: Reports: Chicken Pox - Past Surgical History Head Surgeries/Procedures: Reports: None HEENT Surgical History: Reports: None Cardiovascular Surgical History: Reports: None Respiratory Surgical History: Reports: None GI Surgical History: Reports: None Male Surgical History: Reports: None Endocrine Surgical History: Reports: None Neurological Surgical History: Reports: None Musculoskeletal Surgical History: Reports: Other (See Below) Other Musculoskeletal Surgeries/Procedures:: left thumb Oncologic Surgical History: Reports: None Dermatological Surgical History: Reports: None Social & Family History - Family History Family Medical History: Noncontributory Cardiac: Reports: Hypertension - Tobacco Use Smoking Status *Q: Never Smoker Second Hand Smoke Exposure: No - Caffeine Use Caffeine Use: Reports: Energy Drinks Caffeine Use Comment: A few cans of coke occasionally - Recreational Drug Use Recreational Drug Use: No ED ROS GENERAL - Review of Systems Review Of Systems: ROS reveals no pertinent complaints other than HPI. ED EXAM, GENERAL - Physical Exam Exam: See Below (see dictation) Course - Vital Signs Last Recorded V/S: Last Vital Signs Temp 97.1 F 09/08/19 12:00 Pulse 100 09/08/19 10:00 Resp 22 H 09/08/19 14:00 BP 155/119 H 09/08/19 16:59 Pulse Ox 97 09/08/19 14:00 - Orders/Labs/Meds Orders: Medication Orders Acetaminophen (Tylenol) 650 mg PO Q4H PRN PRN Reason: Pain (Mild 1-3)/fever Last Admin: 09/08/19 08:48 Dose: 650 mg Admin: 09/07/19 15:30 Dose: 650 mg Admin: 09/07/19 10:07 Dose: 650 mg Albuterol (Ventolin Hfa) 0 gm INH Q4H PRN PRN Reason: Wheezing Amlodipine Besylate (Norvasc) 10 mg PO DAILY [facility] Last Admin: 09/08/19 08:33 Dose: 10 mg Admin: 09/07/19 10:03 Dose: 10 mg Clonidine HCl (Catapres) 0.1 mg PO TID [facility] Last Admin: 09/08/19 13:21 Dose: 0.1 mg Admin: 09/08/19 10:00 Dose: 0.1 mg Diphenhydramine HCl (Benadryl) 50 mg IVPUSH Q6H PRN PRN Reason: Anxiety Fluticasone Propionate (Flonase) 0 gm NASBOTH DAILY [facility] Last Admin: 09/08/19 08:33 Dose: 1 spray Admin: 09/07/19 10:03 Dose: 2 spray Hydralazine HCl (Apresoline) 10 mg IVPUSH Q4H PRN PRN Reason: Hypertension Last Admin: 09/07/19 15:12 Dose: 10 mg Admin: 09/07/19 01:06 Dose: 10 mg Hydralazine HCl (Apresoline) 25 mg PO Q6H [facility] Last Admin: 09/08/19 16:59 Dose: 25 mg Admin: 09/08/19 10:23 Dose: 25 mg Admin: 09/08/19 04:56 Dose: 25 mg Admin: 09/07/19 22:41 Dose: 25 mg Admin: 09/07/19 19:53 Dose: 25 mg Nicardipine HCl (Cardene 20 Mg In Ns 200 Ml) 20 mg in 200 mls @ 50 mls/hr IV TITRATE MALLIKA; Protocol Last Titration: 09/08/19 07:55 Dose: 5 mg/hr, 50 mls/hr Titration: 09/08/19 06:26 Dose: 2.5 mg/hr, 25 mls/hr Titration: 09/08/19 06:10 Dose: 2.5 mg/hr, 25 mls/hr Titration: 09/08/19 04:09 Dose: 5 mg/hr, 50 mls/hr Admin: 09/08/19 03:25 Dose: 2.5 mg/hr, 25 mls/hr Titration: 09/08/19 02:56 Dose: 2.5 mg/hr, 25 mls/hr Titration: 09/08/19 01:15 Dose: 2.5 mg/hr, 25 mls/hr Titration: 09/08/19 01:09 Dose: 0 mg/hr, 0 mls/hr Titration: 09/07/19 23:30 Dose: 5 mg/hr, 50 mls/hr Admin: 09/07/19 22:30 Dose: 7.5 mg/hr, 75 mls/hr Titration: 09/07/19 22:18 Dose: 7.5 mg/hr, 75 mls/hr Titration: 09/07/19 21:25 Dose: 7.5 mg/hr, 75 mls/hr Titration: 09/07/19 20:40 Dose: 10 mg/hr, 100 mls/hr Admin: 09/07/19 19:52 Dose: 7.5 mg/hr, 75 mls/hr Titration: 09/07/19 19:52 Dose: 7.5 mg/hr, 75 mls/hr Titration: 09/07/19 17:41 Dose: 7.5 mg/hr, 75 mls/hr Admin: 09/07/19 17:15 Dose: 5 mg/hr, 50 mls/hr Titration: 09/07/19 08:52 Dose: 7.5 mg/hr, 75 mls/hr Admin: 09/07/19 06:11 Dose: 7.5 mg/hr, 75 mls/hr Titration: 09/07/19 06:11 Dose: 7.5 mg/hr, 75 mls/hr Titration: 09/07/19 05:37 Dose: 7.5 mg/hr, 75 mls/hr Titration: 09/07/19 05:22 Dose: 10 mg/hr, 100 mls/hr Titration: 09/07/19 04:52 Dose: 12.5 mg/hr, 125 mls/hr Titration: 09/07/19 04:37 Dose: 10 mg/hr, 100 mls/hr Titration: 09/07/19 04:20 Dose: 7.5 mg/hr, 75 mls/hr Admin: 09/07/19 04:00 Dose: 5 mg/hr, 50 mls/hr Ceftriaxone Sodium 1 gm/ (Sodium Chloride) 50 mls @ 100 mls/hr IV Q12H MALLIKA Last Admin: 09/08/19 08:33 Dose: 100 mls/hr Infusion: 09/07/19 21:06 Dose: 100 mls/hr Admin: 09/07/19 20:36 Dose: 100 mls/hr Infusion: 09/07/19 10:52 Dose: 100 mls/hr Admin: 09/07/19 10:22 Dose: 100 mls/hr Sodium Chloride (Normal Saline) 1,000 mls @ 125 mls/hr IV ASDIRECTED MALLIKA Last Infusion: 09/08/19 00:40 Dose: 0 mls/hr Admin: 09/07/19 19:59 Dose: 125 mls/hr Labetalol HCl (Normodyne) 10 mg IVPUSH Q6H MALLIKA; Protocol Last Admin: 09/08/19 17:24 Dose: 10 mg Admin: 09/08/19 13:12 Dose: Not Given Admin: 09/08/19 06:04 Dose: 10 mg Admin: 09/08/19 00:38 Dose: 10 mg Admin: 09/07/19 18:01 Dose: 10 mg Lorazepam (Ativan) 0.5 mg PO Q8H PRN PRN Reason: Anxiety Last Admin: 09/08/19 08:49 Dose: 0.5 mg Admin: 09/07/19 16:56 Dose: 0.5 mg Metoprolol Tartrate (Lopressor) 25 mg PO Q12H MALLIKA Last Admin: 09/08/19 10:00 Dose: 25 mg Admin: 09/07/19 22:41 Dose: 25 mg Admin: 09/07/19 10:03 Dose: 25 mg Admin: 09/06/19 23:43 Dose: 25 mg Ondansetron HCl (Zofran) 4 mg IVPUSH Q4H PRN PRN Reason: Nausea/Vomiting Last Admin: 09/07/19 07:52 Dose: 4 mg Admin: 09/07/19 01:19 Dose: 4 mg Sodium Chloride (Saline Flush) 10 ml FLUSH ASDIRECTED PRN PRN Reason: Keep Vein Open Sodium Chloride (Saline Flush) 2.5 ml FLUSH ASDIRECTED PRN PRN Reason: Keep Vein Open Sodium Chloride ([place] Nasal [place]) 0 ml SVETLANA TID MALLIKA Last Admin: 09/08/19 13:22 Dose: 2 spray Labs: Laboratory Tests 09/06/19 09/06/19 09/06/19 Range/Units 18:03 18:03 18:37 WBC 11.99 H (4.0-11.0) K/uL RBC 5.25 (4.50-5.90) M/uL Hgb 15.1 (13.0-17.0) g/dL Hct 43.8 (38.0-50.0) % MCV 83.4 (80.0-98.0) fL MCH 28.8 (27.0-32.0) pg MCHC 34.5 (31.0-37.0) g/dL RDW Std Deviation 42.1 (28.0-62.0) fl RDW Coeff of Cathleen 14 (11.0-15.0) % Plt Count 204 (150-400) K/uL MPV 10.80 (7.40-12.00) fL Neut % (Auto) 79.7 (48.0-80.0) % Lymph % (Auto) 14.4 L (16.0-40.0) % [place] % (Auto) 3.8 (0.0-15.0) % Eos % (Auto) 1.8 (0.0-7.0) % Baso % (Auto) 0.3 (0.0-1.5) % Neut # (Auto) 9.6 H (1.4-5.7) K/uL Lymph # (Auto) 1.7 (0.6-2.4) K/uL [place] # (Auto) 0.5 (0.0-0.8) K/uL Eos # (Auto) 0.2 (0.0-0.7) K/uL Baso # (Auto) 0.0 (0.0-0.1) K/uL Nucleated RBC % 0.0 /100WBC Nucleated RBCs # 0 K/uL Sodium 143 (136-148) mmol/L Potassium 3.7 (3.5-5.1) mmol/L Chloride 105 (98-107) mmol/L Carbon Dioxide 27.0 (21.0-32.0) mmol/L BUN 10 (7.0-18.0) mg/dL Creatinine 1.2 (0.8-1.3) mg/dL Est Cr Clr Drug Dosing 89.77 mL/min Estimated GFR (MDRD) > 60.0 ml/min Glucose 102 (74-106) mg/dL Calcium 9.0 (8.5-10.1) mg/dL Total Bilirubin 0.6 (0.2-1.0) mg/dL AST 23 (15-37) IU/L ALT 42 (14-63) IU/L Alkaline Phosphatase 80 (46-116) U/L Troponin I < 0.050 (0.000-0.056) ng/mL Total Protein 8.2 (6.4-8.2) g/dL Albumin 4.4 (3.4-5.0) g/dL Globulin 3.8 (2.6-4.0) g/dL Albumin/Globulin Ratio 1.2 (0.9-1.6) Urine Color YELLOW Urine Appearance CLEAR Urine pH 7.0 (5.0-8.0) Ur Specific [place] 1.015 (1.001-1.035) Urine Protein NEGATIVE (NEGATIVE) mg/dL Urine Glucose (UA) NEGATIVE (NEGATIVE) mg/dL Urine Ketones NEGATIVE (NEGATIVE) mg/dL Urine Occult Blood NEGATIVE (NEGATIVE) Urine Nitrite NEGATIVE (NEGATIVE) Urine Bilirubin NEGATIVE (NEGATIVE) Urine Urobilinogen 0.2 (<2.0) EU/dL Ur Leukocyte Esterase NEGATIVE (NEGATIVE) Urine Opiates Screen (NEGATIVE) Ur Oxycodone Screen (NEGATIVE) Urine Methadone Screen (NEGATIVE) Ur Barbiturates Screen (NEGATIVE) Ur Phencyclidine Scrn (NEGATIVE) Ur Amphetamine Screen (NEGATIVE) U Methamphetamines Scrn (NEGATIVE) U Benzodiazepines Scrn (NEGATIVE) U Cocaine Metab Screen (NEGATIVE) U Marijuana (THC) Screen (NEGATIVE) 09/06/19 Range/Units 18:37 WBC (4.0-11.0) K/uL RBC (4.50-5.90) M/uL Hgb (13.0-17.0) g/dL Hct (38.0-50.0) % MCV (80.0-98.0) fL MCH (27.0-32.0) pg MCHC (31.0-37.0) g/dL RDW Std Deviation (28.0-62.0) fl RDW Coeff of Cathleen (11.0-15.0) % Plt Count (150-400) K/uL MPV (7.40-12.00) fL Neut % (Auto) (48.0-80.0) % Lymph % (Auto) (16.0-40.0) % [place] % (Auto) (0.0-15.0) % Eos % (Auto) (0.0-7.0) % Baso % (Auto) (0.0-1.5) % Neut # (Auto) (1.4-5.7) K/uL Lymph # (Auto) (0.6-2.4) K/uL [place] # (Auto) (0.0-0.8) K/uL Eos # (Auto) (0.0-0.7) K/uL Baso # (Auto) (0.0-0.1) K/uL Nucleated RBC % /100WBC Nucleated RBCs # K/uL Sodium (136-148) mmol/L Potassium (3.5-5.1) mmol/L Chloride (98-107) mmol/L Carbon Dioxide (21.0-32.0) mmol/L BUN (7.0-18.0) mg/dL Creatinine (0.8-1.3) mg/dL Est Cr Clr Drug Dosing mL/min Estimated GFR (MDRD) ml/min Glucose (74-106) mg/dL Calcium (8.5-10.1) mg/dL Total Bilirubin (0.2-1.0) mg/dL AST (15-37) IU/L ALT (14-63) IU/L Alkaline Phosphatase (46-116) U/L Troponin I (0.000-0.056) ng/mL Total Protein (6.4-8.2) g/dL Albumin (3.4-5.0) g/dL Globulin (2.6-4.0) g/dL Albumin/Globulin Ratio (0.9-1.6) Urine Color Urine Appearance Urine pH (5.0-8.0) Ur Specific [place] (1.001-1.035) Urine Protein (NEGATIVE) mg/dL Urine Glucose (UA) (NEGATIVE) mg/dL Urine Ketones (NEGATIVE) mg/dL Urine Occult Blood (NEGATIVE) Urine Nitrite (NEGATIVE) Urine Bilirubin (NEGATIVE) Urine Urobilinogen (<2.0) EU/dL Ur Leukocyte Esterase (NEGATIVE) Urine Opiates Screen NEGATIVE (NEGATIVE) Ur Oxycodone Screen NEGATIVE (NEGATIVE) Urine Methadone Screen NEGATIVE (NEGATIVE) Ur Barbiturates Screen NEGATIVE (NEGATIVE) Ur Phencyclidine Scrn NEGATIVE (NEGATIVE) Ur Amphetamine Screen NEGATIVE (NEGATIVE) U Methamphetamines Scrn NEGATIVE (NEGATIVE) U Benzodiazepines Scrn NEGATIVE (NEGATIVE) U Cocaine Metab Screen NEGATIVE (NEGATIVE) U Marijuana (THC) Screen POSITIVE (NEGATIVE) Meds: Medications Generic Name Dose Route Start Last Admin Trade Name Freq PRN Reason Stop Dose Admin Acetaminophen 650 mg 09/06/19 22:17 09/08/19 08:48 Tylenol PO 650 mg Q4H PRN Administration Pain (Mild 1-3)/fever Albuterol 0 gm 09/06/19 22:15 Ventolin Hfa INH Q4H PRN Wheezing Amlodipine Besylate 10 mg 09/07/19 09:00 09/08/19 08:33 Norvasc PO 10 mg DAILY MALLIKA Administration Clonidine HCl 0.1 mg 09/08/19 09:26 09/08/19 13:21 Catapres PO 0.1 mg TID MALLIKA Administration Diphenhydramine HCl 50 mg 09/07/19 18:26 Benadryl IVPUSH Q6H PRN Anxiety Fluticasone Propionate 0 gm 09/07/19 09:00 09/08/19 08:33 Flonase NASBOTH 1 spray DAILY MALLIKA Administration Hydralazine HCl 10 mg 09/07/19 00:56 09/07/19 15:12 Apresoline IVPUSH 10 mg Q4H PRN Administration Hypertension Hydralazine HCl 25 mg 09/07/19 17:00 09/08/19 16:59 Apresoline PO 25 mg Q6H MALLIKA Administration Nicardipine HCl 20 mg in 200 mls @ 50 mls/hr 09/07/19 03:45 09/08/19 07:55 Cardene 20 Mg In Ns 200 Ml IV 5 mg/hr TITRATE MALLIKA 50 mls/hr Titration Protocol 5 MG/HR Ceftriaxone Sodium 1 gm/ 50 mls @ 100 mls/hr 09/07/19 08:30 09/08/19 08:33 Sodium Chloride IV 100 mls/hr Q12H MALLIKA Administration Sodium Chloride 1,000 mls @ 125 mls/hr 09/07/19 19:15 09/08/19 00:40 Normal Saline IV 0 mls/hr ASDIRECTED MALLIKA Infusion Labetalol HCl 10 mg 09/07/19 18:00 09/08/19 17:24 Normodyne IVPUSH 10 mg Q6H MALLIKA Administration Protocol Lorazepam 0.5 mg 09/07/19 16:01 09/08/19 08:49 Ativan PO 0.5 mg Q8H PRN Administration Anxiety Metoprolol Tartrate 25 mg 09/06/19 22:30 09/08/19 10:00 Lopressor PO 25 mg Q12H MALLIKA Administration Ondansetron HCl 4 mg 09/07/19 00:44 09/07/19 07:52 Zofran IVPUSH 4 mg Q4H PRN Administration Nausea/Vomiting Sodium Chloride 10 ml 09/06/19 17:54 Saline Flush FLUSH ASDIRECTED PRN Keep Vein Open Sodium Chloride 2.5 ml 09/06/19 17:54 Saline Flush FLUSH ASDIRECTED PRN Keep Vein Open Sodium Chloride 0 ml 09/08/19 14:00 09/08/19 13:22 [place] Nasal [place] SVETLANA 2 spray TID MALLIKA Administration Discontinued Medications Generic Name Dose Route Start Last Admin Trade Name Freq PRN Reason Stop Dose Admin Hydralazine HCl 10 mg 09/06/19 19:35 09/06/19 19:42 Apresoline IVPUSH 09/06/19 19:36 10 mg ONETIME ONE Administration Hydralazine HCl 10 mg 09/06/19 21:25 09/06/19 21:30 Apresoline IVPUSH 09/06/19 21:26 10 mg ONETIME ONE Administration Hydralazine HCl 10 mg 09/07/19 06:00 09/07/19 16:56 Apresoline PO 10 mg Q6H MALLIKA Administration Sodium Chloride 1,000 mls @ 999 mls/hr 09/06/19 18:47 09/06/19 18:50 Normal Saline IV 09/06/19 19:47 999 mls/hr STAT ONE Administration Potassium Chloride 40 meq/ 100 mls @ 25 mls/hr 09/07/19 18:25 09/07/19 19:53 Premix IV 09/07/19 22:24 25 mls/hr Q4H MALLIKA Administration Magnesium Sulfate 4 gm/ Premix 100 mls @ 50 mls/hr 09/07/19 18:27 09/07/19 19 :41 IV 09/07/19 20:26 50 mls/hr ONETIME ONE Administration Labetalol HCl 20 mg 09/06/19 17:59 09/06/19 18:13 Normodyne IVPUSH 09/06/19 18:00 20 mg ONETIME ONE Administration Protocol Labetalol HCl 20 mg 09/06/19 18:47 09/06/19 18:51 Normodyne IVPUSH 09/06/19 18:48 20 mg ONETIME ONE Administration Protocol Labetalol HCl 19 mg 09/07/19 17:10 Normodyne IVPUSH Q4H PRN Hypertension Protocol Morphine Sulfate 2 mg 09/06/19 20:10 09/06/19 20:21 Morphine IVPUSH 09/06/19 20:11 2 mg ONETIME ONE Administration Morphine Sulfate 2 mg 09/06/19 22:17 09/07/19 11:45 Morphine IVPUSH 09/07/19 22:18 2 mg Q2H PRN Administration Pain (severe 7-10) Morphine Sulfate 2 mg 09/07/19 19:15 Morphine IVPUSH 09/07/19 22:18 Q2H PRN Pain (severe 7-10) Ondansetron HCl 4 mg 09/06/19 20:28 09/06/19 21:06 Zofran IVPUSH 09/06/19 20:29 4 mg ONETIME ONE Administration Ondansetron HCl 4 mg 09/06/19 22:17 Zofran Odt PO Q4H PRN nausea, able to take PO Promethazine HCl 25 mg 09/07/19 17:04 09/07/19 17:37 Phenergan IM 09/07/19 17:05 25 mg ONETIME ONE Administration Departure - Departure Time of Disposition: 21:39 Disposition: Refer to Observation Condition: Good Clinical Impression: Hypertensive urgency, Headache
[2019-09-06] MEDS ORDERED: Labetalol 100 MG/20 ML MDV IVPUSH ONE ×2 (17:59→18:47)
[2019-09-06 18:45] LABS: BLOOD UREA NITROGEN,BUN 10 mg/dL (7.0-18.0); CHLORIDE,CL 105 mmol/L (98-107); GLUCOSE RANDOM 102 mg/dL (74-106); POTASSIUM,K 3.7 mmol/L (3.5-5.1); SODIUM,NA 143 mmol/L (136-148)
[2019-09-06] MEDS ORDERED: Sodium Chloride 0.9% 1,000 ML IV ONE (18:47)
[2019-09-06] MEDS ORDERED: hydrALAZINE 20 MG/ML SDV IVPUSH ONE ×2 (19:35→21:25)
[2019-09-06] MEDS ORDERED: Morphine 2 MG/ML Syringe IVPUSH ONE (20:10)
[2019-09-06] MEDS ORDERED: Ondansetron 4 MG/2 ML SDV IVPUSH ONE (20:28)
--- NOTE | 2019-09-06 21:18 | CT ---
CT HEAD DATE: 09/06/2019 CLINICAL HISTORY: Patient with headache and hypertension. TECHNIQUE: Standard CT scanning of the head was performed. COMPARISON: None. FINDINGS: There is no intracranial hemorrhage. The [place] matter-white matter differentiation is intact. The size of the ventricular system is normal for age. There is no mass effect or midline shift. The calvarium is unremarkable. The orbits are unremarkable. The paranasal sinuses demonstrate moderate mucosal thickening in the maxillary, frontal and sphenoid sinuses, as well as complete opacification of the ethmoid air cells. The mastoid air cells are unremarkable. The soft tissues demonstrate symmetric prominence and hyperdensity of the temporalis muscles bilaterally. There are old nasal bone fractures. IMPRESSION: 1. No intracranial hemorrhage or territorial infarction. 2. Moderate to severe paranasal mucosal sinus disease. 3. Old nasal bone fractures. 4. Symmetric prominence and hyperdensity of the temporalis muscles bilaterally. Clinical correlation for soft tissue swelling in the temporal regions is recommended. Please note that all CT scans at this facility use dose modulation, iterative reconstruction, and/or weight-based dosing when appropriate to reduce radiation dose to as low as reasonably achievable. Dictated by: Enriqueta Suarez MD @ 09/06/2019 21:16:32 (Electronically Signed)
[2019-09-06] MEDS ORDERED: Albuterol 8 GM Inhaler INH PRN (22:15)
[2019-09-06] MEDS ORDERED: Ondansetron 4 MG Tab.DIS PO PRN (22:17)
--- NOTE | 2019-09-06 22:23 | PCM.HP.2 ---
H&P History of Present Illness - General Date of Service: 09/06/19 Admit Problem/Dx: Admission Diagnosis/Problem Admission Diagnosis/Problem Hypertensive urgency - History of Present Illness Initial Comments - Free Text/Narative: 39 yo male with pmh of Asthma, hypertension and obstructive sleep apnea who presents to the ED wt complaints of headache. The headache started this morning. Bright lights and movement make it worse. He reports a family history of migraines. He has not used his CPAP machine in several weeks and thinks this may be contributing to his headache. He was noted to have a blood pressure of 230/120 in the ED. He was given IV labetolol and hydralazine with a decreas in his blood pressure to 190s/100. headache Pain Score (Numeric/FACES): 8 - Related Data Allergies/Adverse Reactions: Allergies Allergy/AdvReac Type Severity Reaction Status Date / Time lisinopril Allergy Swelling Verified 09/07/19 02:28 Home Medications: Home Meds amLODIPine [Norvasc] 10 mg PO DAILY 04/16/19 [History] Albuterol [Ventolin HFA] 2 puff INH Q4H PRN #2 inhaler 04/17/19 [Rx] Metoprolol Tartrate [Lopressor] 25 mg PO Q12H 30 Days #60 tablet 04/17/19 [Rx] hydrALAZINE [Apresoline] 10 mg PO Q6H 30 Days #120 tablet 04/17/19 [Rx] Past Medical History HEENT History: Reports: None Cardiovascular History: Reports: Hypertension Respiratory History: Reports: Asthma, Sleep Apnea Gastrointestinal History: Reports: None Genitourinary History: Reports: None Musculoskeletal History: Reports: None Neurological History: Reports: Headaches, Chronic Psychiatric History: Reports: None Endocrine/Metabolic History: Reports: None Hematologic History: Reports: None Immunologic History: Reports: None Oncologic (Cancer) History: Reports: None Dermatologic History: Reports: None - Infectious Disease History Infectious Disease History: Reports: Chicken Pox - Past Surgical History Head Surgeries/Procedures: Reports: None HEENT Surgical History: Reports: None Cardiovascular Surgical History: Reports: None Respiratory Surgical History: Reports: None GI Surgical History: Reports: None Male Surgical History: Reports: None Endocrine Surgical History: Reports: None Neurological Surgical History: Reports: None Musculoskeletal Surgical History: Reports: Other (See Below) Other Musculoskeletal Surgeries/Procedures:: left thumb Oncologic Surgical History: Reports: None Dermatological Surgical History: Reports: None Social & Family History - Family History Family Medical History: Noncontributory Cardiac: Reports: Hypertension - Tobacco Use Smoking Status *Q: Never Smoker Second Hand Smoke Exposure: No - Caffeine Use Caffeine Use: Reports: Energy Drinks Caffeine Use Comment: A few cans of coke occasionally - Recreational Drug Use Recreational Drug Use: No H&P Review of Systems - Review of Systems: Review Of Systems: ROS reveals no pertinent complaints other than HPI. Exam - Exam Exam: See Below - Vital Signs Vital Signs: Last Vital Signs Temp 35.2 C 09/06/19 17:46 Pulse 93 09/06/19 22:00 Resp 18 09/06/19 22:00 BP 195/124 H 09/06/19 22:00 Pulse Ox 97 09/06/19 22:00 Weight: 99.79 kg - Exam General: Alert, Oriented HEENT: Mucosa Moist & [place] Neck: Supple Lungs: Clear to Auscultation, Normal Respiratory Effort Cardiovascular: Regular Rate, Regular Rhythm GI/Abdominal Exam: Normal Bowel Sounds, Soft, Non-Tender Extremities: Non-Tender, No Pedal Edema Skin: Warm, Dry, Intact - Patient Data Lab Results Last 24 hrs: Laboratory Results - last 24 hr 09/06/19 09/06/19 09/06/19 Range/Units 18:03 18:03 18:37 WBC 11.99 H (4.0-11.0) K/uL RBC 5.25 (4.50-5.90) M/uL Hgb 15.1 (13.0-17.0) g/dL Hct 43.8 (38.0-50.0) % MCV 83.4 (80.0-98.0) fL MCH 28.8 (27.0-32.0) pg MCHC 34.5 (31.0-37.0) g/dL RDW Std Deviation 42.1 (28.0-62.0) fl RDW Coeff of Cathleen 14 (11.0-15.0) % Plt Count 204 (150-400) K/uL MPV 10.80 (7.40-12.00) fL Neut % (Auto) 79.7 (48.0-80.0) % Lymph % (Auto) 14.4 L (16.0-40.0) % [place] % (Auto) 3.8 (0.0-15.0) % Eos % (Auto) 1.8 (0.0-7.0) % Baso % (Auto) 0.3 (0.0-1.5) % Neut # (Auto) 9.6 H (1.4-5.7) K/uL Lymph # (Auto) 1.7 (0.6-2.4) K/uL [place] # (Auto) 0.5 (0.0-0.8) K/uL Eos # (Auto) 0.2 (0.0-0.7) K/uL Baso # (Auto) 0.0 (0.0-0.1) K/uL Nucleated RBC % 0.0 /100WBC Nucleated RBCs # 0 K/uL Sodium 143 (136-148) mmol/L Potassium 3.7 (3.5-5.1) mmol/L Chloride 105 (98-107) mmol/L Carbon Dioxide 27.0 (21.0-32.0) mmol/L BUN 10 (7.0-18.0) mg/dL Creatinine 1.2 (0.8-1.3) mg/dL Est Cr Clr Drug Dosing 89.77 mL/min Estimated GFR (MDRD) > 60.0 ml/min Glucose 102 (74-106) mg/dL Calcium 9.0 (8.5-10.1) mg/dL Total Bilirubin 0.6 (0.2-1.0) mg/dL AST 23 (15-37) IU/L ALT 42 (14-63) IU/L Alkaline Phosphatase 80 (46-116) U/L Troponin I < 0.050 (0.000-0.056) ng/mL Total Protein 8.2 (6.4-8.2) g/dL Albumin 4.4 (3.4-5.0) g/dL Globulin 3.8 (2.6-4.0) g/dL Albumin/Globulin Ratio 1.2 (0.9-1.6) Urine Color YELLOW Urine Appearance CLEAR Urine pH 7.0 (5.0-8.0) Ur Specific [place] 1.015 (1.001-1.035) Urine Protein NEGATIVE (NEGATIVE) mg/dL Urine Glucose (UA) NEGATIVE (NEGATIVE) mg/dL Urine Ketones NEGATIVE (NEGATIVE) mg/dL Urine Occult Blood NEGATIVE (NEGATIVE) Urine Nitrite NEGATIVE (NEGATIVE) Urine Bilirubin NEGATIVE (NEGATIVE) Urine Urobilinogen 0.2 (<2.0) EU/dL Ur Leukocyte Esterase NEGATIVE (NEGATIVE) Result Diagrams: 09/08/19 05:15 09/08/19 05:15 Problem List Initiated/Reviewed/Updated: Yes Orders Last 24hrs: Active Orders 24 hr Category Date Time Status Admission Status [Patient Status] [ADT] Stat ADT 09/06/19 22:06 Active Antiembolic Devices [RC] PER UNIT ROUTINE Care 09/06/19 22:18 Ordered CPAP Noctural Home [RT BiPAP/CPAP] [RC] ASDIRECTED Care 09/06/19 22:18 Ordered EKG Documentation Completion [RC] STAT Care 09/06/19 17:54 Active Oxygen Therapy [RC] PRN Care 09/06/19 22:17 Ordered Up ad [place] [RC] ASDIRECTED Care 09/06/19 22:17 Ordered VTE/DVT Education [RC] PER UNIT ROUTINE Care 09/06/19 22:17 Ordered Vital Signs [RC] Q4H Care 09/06/19 22:17 Ordered Regular Diet [DIET] Diet 09/06/19 Breakfast Ordered BASIC METABOLIC PANEL,BMP [CHEM] AM Lab 09/07/19 05:11 Ordered CBC WITH AUTO DIFF [HEME] AM Lab 09/07/19 05:11 Ordered Acetaminophen [Tylenol] Med 09/06/19 22:17 Ordered 650 mg PO Q4H PRN Albuterol [Ventolin HFA] Med 09/06/19 22:15 Ordered 2 puff INH Q4H PRN Metoprolol Tartrate [Lopressor] Med 09/06/19 22:30 Ordered 25 mg PO Q12H Morphine Med 09/06/19 22:17 Ordered 2 mg IVPUSH Q2H PRN Ondansetron [Zofran ODT] Med 09/06/19 22:17 Ordered 4 mg PO Q4H PRN Sodium Chloride 0.9% [Saline Flush] Med 09/06/19 17:54 Active 10 ml FLUSH ASDIRECTED PRN Sodium Chloride 0.9% [Saline Flush] Med 09/06/19 17:54 Active 2.5 ml FLUSH ASDIRECTED PRN amLODIPine [Norvasc] Med 09/07/19 09:00 Ordered 10 mg PO DAILY hydrALAZINE [Apresoline] Med 09/07/19 06:00 Ordered 10 mg PO Q6H Saline Lock Insert [OM.PC] Stat Oth 09/06/19 17:54 Ordered Sequential Compression Device [OM.PC] Per Unit Routine Oth 09/06/19 22:17 Ordered Resuscitation Status Routine Resus Stat 09/06/19 22:17 Ordered Medication Orders Acetaminophen (Tylenol) 650 mg PO Q4H PRN PRN Reason: Pain (Mild 1-3)/fever Albuterol (Ventolin Hfa) gm INH Q4H PRN PRN Reason: Wheezing Amlodipine Besylate (Norvasc) 10 mg PO DAILY MALLIKA Hydralazine HCl (Apresoline) 10 mg PO Q6H MALLIKA Metoprolol Tartrate (Lopressor) 25 mg PO Q12H MALLIKA Morphine Sulfate (Morphine) 2 mg IVPUSH Q2H PRN PRN Reason: Pain (severe 7-10) Stop: 09/07/19 22:18 Ondansetron HCl (Zofran Odt) 4 mg PO Q4H PRN PRN Reason: nausea, able to take PO Sodium Chloride (Saline Flush) 10 ml FLUSH ASDIRECTED PRN PRN Reason: Keep Vein Open Sodium Chloride (Saline Flush) 2.5 ml FLUSH ASDIRECTED PRN PRN Reason: Keep Vein Open Assessment/Plan Comment:: 39 yo male admitted with hypertensive urgency with migraines. His blood pressure has decreased to 190 systolic we will transfer to ICU for further close monitoring of his blood pressure. We will give antihypertensive medications as needed.
[2019-09-06] MEDS: Metoprolol Tartrate 25 MG Tab PO SCH (23:43)
[2019-09-06] MEDS: Morphine 10 MG/ML Syringe IVPUSH PRN (23:45)
[2019-09-07] MEDS: hydrALAZINE 20 MG/ML SDV IVPUSH PRN ×2 (01:06→15:12)
[2019-09-07] MEDS: Ondansetron 4 MG/2 ML SDV IVPUSH PRN ×2 (01:19→07:52)
[2019-09-07] MEDS: niCARdipine/Normal Saline 20 MG/200 ML BAG IV SCH ×6 (04:00→22:30)
[2019-09-07] MEDS: Morphine 10 MG/ML Syringe IVPUSH PRN ×2 (04:02→11:45)
[2019-09-07] MEDS: hydrALAZINE 10 MG Tab PO SCH ×3 (06:10→16:56)
[2019-09-07 07:03] LABS: BLOOD UREA NITROGEN,BUN 10 mg/dL (7.0-18.0); CARBON DIOXIDE,CO2 25.2 mmol/L (21.0-32.0); CHLORIDE,CL 102 mmol/L (98-107); GLUCOSE RANDOM 142 mg/dL (74-106); POTASSIUM,K 3.6 mmol/L (3.5-5.1); SODIUM,NA 142 mmol/L (136-148)
--- NOTE | 2019-09-07 07:18 | PN ---
THC Physician - Brief Progress [id number]/10/2019 05:38[facility] Jose Briones, ROSENDO - CRISTIANO [facility] - CRISTIANO PAXTON KEYStephanie of Service 09/07/2019 05:38HPI/Events of Note Chart reviewed. On camera, the patient is asleep in bed, in NAD. Mr Velasco is a 39 yr old man presneting to ED with a headache and elevated BP. He has been out of his antihypertensives for about 1 week. He has also not used his CPAP consistently foe at least 2 weeks. In the ED, he rec'd a total of 20 mg Hydralazine and 40 mg Labetalol with improvement in BP.PMH: HTN, migraine AQUINO, SAVANNAH - noncomp liant with CPAP, asthma.Investigations - pertinent: bMP - Cre 1.2, LFTs unremarkable, Trop neg. WBC 1 [address] head: no acute findings.A/P:1. HTN urgencyRec'd po antihypertensives but did n ot tolerate due to nausea.Rec'd prn Hydralazine IV 1 dose with temporary slight improvement.Start Eliezer ardipine drip to obatina adequate control of BP - initial goal 185/95 first 24 hours, thereafter more aggressive decrease in BP.2. AQUINO Per patient related to his uncontrolled BP, though also does have un derlying migraine.3. OSAPatient should be counseled about importance of compliance with CPAP, includi ng risks of noncompliance.4. GI/DVT prophylaxis.SCDs. If ambulating less than 500 feet tid, will need pharmacologic DVT prophylaxis.Interventions Major-Other: HTN urgency; headache; OSAElectronically Si gned by: DONIS LANDIS) on 09/07/2019 07:17
--- NOTE | 2019-09-07 09:31 | PN ---
THC Physician - Brief Progress [id number]/10/2019 09:26[facility] Jose Briones, ROSENDO [facility] - PAXTON WHITT[place] JRDate of Service 09/07/2019 09:26HPI/Events of Note eICU progress note:39-year-old male presenting with hypertensive urgency after medical noncom pliance and moving from [place]. Patient has obstructive sleep apnea with CPAP which she did not bring with him nor did he bring any of his medications for unknown reason.EMR is reviewed includi eleanor a CT of the head which shows temporal prominence bilaterally, I have asked Gavi RN to examine the patient's temporal area patient states he does not have pain there, I have ordered the following test s: Blood cultures, lactic acid, sed rate, troponins, urine drug screen, and have not requested that h e start on Flonase and Rocephin for now. Patient also has a chest x-ray pending. Patient had a whit e count elevation occurred this a.m. therefore we are monitoring the patient for possible sources of sepsis.Patient CT besides the signs and symptoms associated with the temporal fullness also showed si gnificant pansinusitis.Continue to monitorPatient has no other s/s of meningitis but does complain of eye painif sed rate elevated will start steroids.Interventions Major-Hypertension - evaluation and m anagement, Sepsis - evaluation and managementMinor-Clinical assessment - ordering diagnostic tests, C ommunication with other healthcare providers and/or family, Routine modifications to care plan (e.g. PRN medications for pain, fever) 19 09:30
--- NOTE | 2019-09-07 09:56 | CR ---
INDICATION: Pt w/sepsis. TECHNIQUE: Chest 1 view. COMPARISON: 04/16/19 FINDINGS: Cardiovascular and mediastinum: Heart size and vasculature are normal in caliber and appearance. Mediastinum is within normal limits. Lungs and pleural space: Lungs are clear. No sign of infiltrate or mass. No sign of pleural effusion. No pneumothorax. Bones and soft tissues: No significant findings. IMPRESSION: Unremarkable chest. Dictated by: Fuentes Rodriguez MD @ 09/07/2019 09:54:48 (Electronically Signed)
[2019-09-07] MEDS: Fluticasone Propionate Nasal Spray 16 GM Bottle NASBOTH SCH (10:03)
[2019-09-07] MEDS: Metoprolol Tartrate 25 MG Tab PO SCH ×2 (10:03→22:41)
[2019-09-07] MEDS: amLODIPine 5 MG Tab PO SCH (10:03)
[2019-09-07] MEDS: Acetaminophen 325 MG Tab PO PRN ×2 (10:07→15:30)
[2019-09-07] MEDS: cefTRIAXone 1 GM in Sodium Chloride 0.9% 50 ML IV SCH ×2 (10:22→20:36)
--- NOTE | 2019-09-07 11:12 | PCM.PN ---
- General Info Date of Service: 09/07/19 Subjective Update: feels better but still complaining of headache. No change in vision. No chest pain, dyspnea. - Patient Data Vitals - Most Recent: Last Vital Signs Temp 37.1 C 09/06/19 23:35 Pulse 102 H 09/07/19 10:03 Resp 22 H 09/07/19 07:00 BP 159/110 H 09/07/19 10:03 Pulse Ox 96 09/07/19 07:00 Weight - Most Recent: 99.79 kg I&O - Last 24 Hours: Intake & Output 09/06/19 09/07/19 09/07/19 22:59 06:59 14:59 Intake Total 200 Output Total 1600 Balance -1400 Lab Results Last 24 Hours: Laboratory Results - last 24 hr 09/06/19 09/06/19 09/06/19 Range/Units 18:03 18:03 18:37 WBC 11.99 H (4.0-11.0) K/uL RBC 5.25 (4.50-5.90) M/uL Hgb 15.1 (13.0-17.0) g/dL Hct 43.8 (38.0-50.0) % MCV 83.4 (80.0-98.0) fL MCH 28.8 (27.0-32.0) pg MCHC 34.5 (31.0-37.0) g/dL RDW Std Deviation 42.1 (28.0-62.0) fl RDW Coeff of Cathleen 14 (11.0-15.0) % Plt Count 204 (150-400) K/uL MPV 10.80 (7.40-12.00) fL Neut % (Auto) 79.7 (48.0-80.0) % Lymph % (Auto) 14.4 L (16.0-40.0) % [place] % (Auto) 3.8 (0.0-15.0) % Eos % (Auto) 1.8 (0.0-7.0) % Baso % (Auto) 0.3 (0.0-1.5) % Neut # (Auto) 9.6 H (1.4-5.7) K/uL Lymph # (Auto) 1.7 (0.6-2.4) K/uL [place] # (Auto) 0.5 (0.0-0.8) K/uL Eos # (Auto) 0.2 (0.0-0.7) K/uL Baso # (Auto) 0.0 (0.0-0.1) K/uL Nucleated RBC % 0.0 /100WBC Nucleated RBCs # 0 K/uL ESR (0-14) mm/hr Lactate (0.20-2.00) mmol/L Sodium 143 (136-148) mmol/L Potassium 3.7 (3.5-5.1) mmol/L Chloride 105 (98-107) mmol/L Carbon Dioxide 27.0 (21.0-32.0) mmol/L BUN 10 (7.0-18.0) mg/dL Creatinine 1.2 (0.8-1.3) mg/dL Est Cr Clr Drug Dosing 89.77 mL/min Estimated GFR (MDRD) > 60.0 ml/min Glucose 102 (74-106) mg/dL Calcium 9.0 (8.5-10.1) mg/dL Total Bilirubin 0.6 (0.2-1.0) mg/dL AST 23 (15-37) IU/L ALT 42 (14-63) IU/L Alkaline Phosphatase 80 (46-116) U/L Troponin I < 0.050 (0.000-0.056) ng/mL Total Protein 8.2 (6.4-8.2) g/dL Albumin 4.4 (3.4-5.0) g/dL Globulin 3.8 (2.6-4.0) g/dL Albumin/Globulin Ratio 1.2 (0.9-1.6) Urine Color YELLOW Urine Appearance CLEAR Urine pH 7.0 (5.0-8.0) Ur Specific [place] 1.015 (1.001-1.035) Urine Protein NEGATIVE (NEGATIVE) mg/dL Urine Glucose (UA) NEGATIVE (NEGATIVE) mg/dL Urine Ketones NEGATIVE (NEGATIVE) mg/dL Urine Occult Blood NEGATIVE (NEGATIVE) Urine Nitrite NEGATIVE (NEGATIVE) Urine Bilirubin NEGATIVE (NEGATIVE) Urine Urobilinogen 0.2 (<2.0) EU/dL Ur Leukocyte Esterase NEGATIVE (NEGATIVE) Urine Opiates Screen (NEGATIVE) Ur Oxycodone Screen (NEGATIVE) Urine Methadone Screen (NEGATIVE) Ur Barbiturates Screen (NEGATIVE) Ur Phencyclidine Scrn (NEGATIVE) Ur Amphetamine Screen (NEGATIVE) U Methamphetamines Scrn (NEGATIVE) U Benzodiazepines Scrn (NEGATIVE) U Cocaine Metab Screen (NEGATIVE) U Marijuana (THC) Screen (NEGATIVE) 09/06/19 09/07/19 09/07/19 Range/Units 18:37 05:45 05:45 WBC 15.14 H (4.0-11.0) K/uL RBC 5.46 (4.50-5.90) M/uL Hgb 15.5 (13.0-17.0) g/dL Hct 45.4 (38.0-50.0) % MCV 83.2 (80.0-98.0) fL MCH 28.4 (27.0-32.0) pg MCHC 34.1 (31.0-37.0) g/dL RDW Std Deviation 42.4 (28.0-62.0) fl RDW Coeff of Cathleen 14 (11.0-15.0) % Plt Count 208 (150-400) K/uL MPV 11.70 (7.40-12.00) fL Neut % (Auto) 89.9 H (48.0-80.0) % Lymph % (Auto) 6.8 L (16.0-40.0) % [place] % (Auto) 3.2 (0.0-15.0) % Eos % (Auto) 0.0 (0.0-7.0) % Baso % (Auto) 0.1 (0.0-1.5) % Neut # (Auto) 13.6 H (1.4-5.7) K/uL Lymph # (Auto) 1.0 (0.6-2.4) K/uL [place] # (Auto) 0.5 (0.0-0.8) K/uL Eos # (Auto) 0.0 (0.0-0.7) K/uL Baso # (Auto) 0.0 (0.0-0.1) K/uL Nucleated RBC % 0.0 /100WBC Nucleated RBCs # 0 K/uL ESR (0-14) mm/hr Lactate (0.20-2.00) mmol/L Sodium 142 (136-148) mmol/L Potassium 3.6 (3.5-5.1) mmol/L Chloride 102 (98-107) mmol/L Carbon Dioxide 25.2 (21.0-32.0) mmol/L BUN 10 (7.0-18.0) mg/dL Creatinine 1.1 (0.8-1.3) mg/dL Est Cr Clr Drug Dosing 97.93 mL/min Estimated GFR (MDRD) > 60.0 ml/min Glucose 142 H (74-106) mg/dL Calcium 9.3 (8.5-10.1) mg/dL Total Bilirubin (0.2-1.0) mg/dL AST (15-37) IU/L ALT (14-63) IU/L Alkaline Phosphatase (46-116) U/L Troponin I (0.000-0.056) ng/mL Total Protein (6.4-8.2) g/dL Albumin (3.4-5.0) g/dL Globulin (2.6-4.0) g/dL Albumin/Globulin Ratio (0.9-1.6) Urine Color Urine Appearance Urine pH (5.0-8.0) Ur Specific [place] (1.001-1.035) Urine Protein (NEGATIVE) mg/dL Urine Glucose (UA) (NEGATIVE) mg/dL Urine Ketones (NEGATIVE) mg/dL Urine Occult Blood (NEGATIVE) Urine Nitrite (NEGATIVE) Urine Bilirubin (NEGATIVE) Urine Urobilinogen (<2.0) EU/dL Ur Leukocyte Esterase (NEGATIVE) Urine Opiates Screen NEGATIVE (NEGATIVE) Ur Oxycodone Screen NEGATIVE (NEGATIVE) Urine Methadone Screen NEGATIVE (NEGATIVE) Ur Barbiturates Screen NEGATIVE (NEGATIVE) Ur Phencyclidine Scrn NEGATIVE (NEGATIVE) Ur Amphetamine Screen NEGATIVE (NEGATIVE) U Methamphetamines Scrn NEGATIVE (NEGATIVE) U Benzodiazepines Scrn NEGATIVE (NEGATIVE) U Cocaine Metab Screen NEGATIVE (NEGATIVE) U Marijuana (THC) Screen POSITIVE (NEGATIVE) 09/07/19 09/07/19 09/07/19 Range/Units 09:05 09:05 09:05 WBC (4.0-11.0) K/uL RBC (4.50-5.90) M/uL Hgb (13.0-17.0) g/dL Hct (38.0-50.0) % MCV (80.0-98.0) fL MCH (27.0-32.0) pg MCHC (31.0-37.0) g/dL RDW Std Deviation (28.0-62.0) fl RDW Coeff of Cathleen (11.0-15.0) % Plt Count (150-400) K/uL MPV (7.40-12.00) fL Neut % (Auto) (48.0-80.0) % Lymph % (Auto) (16.0-40.0) % [place] % (Auto) (0.0-15.0) % Eos % (Auto) (0.0-7.0) % Baso % (Auto) (0.0-1.5) % Neut # (Auto) (1.4-5.7) K/uL Lymph # (Auto) (0.6-2.4) K/uL [place] # (Auto) (0.0-0.8) K/uL Eos # (Auto) (0.0-0.7) K/uL Baso # (Auto) (0.0-0.1) K/uL Nucleated RBC % /100WBC Nucleated RBCs # K/uL ESR 1 (0-14) mm/hr Lactate 1.7 (0.20-2.00) mmol/L Sodium (136-148) mmol/L Potassium (3.5-5.1) mmol/L Chloride (98-107) mmol/L Carbon Dioxide (21.0-32.0) mmol/L BUN (7.0-18.0) mg/dL Creatinine (0.8-1.3) mg/dL Est Cr Clr Drug Dosing mL/min Estimated GFR (MDRD) ml/min Glucose (74-106) mg/dL Calcium (8.5-10.1) mg/dL Total Bilirubin (0.2-1.0) mg/dL AST (15-37) IU/L ALT (14-63) IU/L Alkaline Phosphatase (46-116) U/L Troponin I < 0.050 (0.000-0.056) ng/mL Total Protein (6.4-8.2) g/dL Albumin (3.4-5.0) g/dL Globulin (2.6-4.0) g/dL Albumin/Globulin Ratio (0.9-1.6) Urine Color Urine Appearance Urine pH (5.0-8.0) Ur Specific [place] (1.001-1.035) Urine Protein (NEGATIVE) mg/dL Urine Glucose (UA) (NEGATIVE) mg/dL Urine Ketones (NEGATIVE) mg/dL Urine Occult Blood (NEGATIVE) Urine Nitrite (NEGATIVE) Urine Bilirubin (NEGATIVE) Urine Urobilinogen (<2.0) EU/dL Ur Leukocyte Esterase (NEGATIVE) Urine Opiates Screen (NEGATIVE) Ur Oxycodone Screen (NEGATIVE) Urine Methadone Screen (NEGATIVE) Ur Barbiturates Screen (NEGATIVE) Ur Phencyclidine Scrn (NEGATIVE) Ur Amphetamine Screen (NEGATIVE) U Methamphetamines Scrn (NEGATIVE) U Benzodiazepines Scrn (NEGATIVE) U Cocaine Metab Screen (NEGATIVE) U Marijuana (THC) Screen (NEGATIVE) Med Orders - Current: Current Medications Acetaminophen (Tylenol) 650 mg PO Q4H PRN PRN Reason: Pain (Mild 1-3)/fever Last Admin: 09/07/19 10:07 Dose: 650 mg Albuterol (Ventolin Hfa) 0 gm INH Q4H PRN PRN Reason: Wheezing Amlodipine Besylate (Norvasc) 10 mg PO DAILY [facility] Last Admin: 09/07/19 10:03 Dose: 10 mg Fluticasone Propionate (Flonase) 0 gm NASBOTH DAILY MALLIKA Last Admin: 09/07/19 10:03 Dose: 2 spray Hydralazine HCl (Apresoline) 10 mg PO Q6H MALLIKA Last Admin: 09/07/19 06:10 Dose: 10 mg Hydralazine HCl (Apresoline) 10 mg IVPUSH Q4H PRN PRN Reason: Hypertension Last Admin: 09/07/19 01:06 Dose: 10 mg Nicardipine HCl (Cardene 20 Mg In Ns 200 Ml) 20 mg in 200 mls @ 50 mls/hr IV TITRATE MALLIKA; Protocol Last Titration: 09/07/19 08:52 Dose: Infused Ceftriaxone Sodium 1 gm/ (Sodium Chloride) 50 mls @ 100 mls/hr IV Q12H MALLIKA Last Admin: 09/07/19 10:22 Dose: 100 mls/hr Metoprolol Tartrate (Lopressor) 25 mg PO Q12H MALLIKA Last Admin: 09/07/19 10:03 Dose: 25 mg Morphine Sulfate (Morphine) 2 mg IVPUSH Q2H PRN PRN Reason: Pain (severe 7-10) Stop: 09/07/19 22:18 Last Admin: 09/07/19 04:02 Dose: 2 mg Ondansetron HCl (Zofran) 4 mg IVPUSH Q4H PRN PRN Reason: Nausea/Vomiting Last Admin: 09/07/19 07:52 Dose: 4 mg Sodium Chloride (Saline Flush) 10 ml FLUSH ASDIRECTED PRN PRN Reason: Keep Vein Open Sodium Chloride (Saline Flush) 2.5 ml FLUSH ASDIRECTED PRN PRN Reason: Keep Vein Open Discontinued Medications Hydralazine HCl (Apresoline) 10 mg IVPUSH ONETIME ONE Stop: 09/06/19 19:36 Last Admin: 09/06/19 19:42 Dose: 10 mg Hydralazine HCl (Apresoline) 10 mg IVPUSH ONETIME ONE Stop: 09/06/19 21:26 Last Admin: 09/06/19 21:30 Dose: 10 mg Sodium Chloride (Normal Saline) 1,000 mls @ 999 mls/hr IV STAT ONE Stop: 09/06/19 19:47 Last Admin: 09/06/19 18:50 Dose: 999 mls/hr Labetalol HCl (Normodyne) 20 mg IVPUSH ONETIME ONE; Protocol Stop: 09/06/19 18:00 Last Admin: 09/06/19 18:13 Dose: 20 mg Labetalol HCl (Normodyne) 20 mg IVPUSH ONETIME ONE; Protocol Stop: 09/06/19 18:48 Last Admin: 09/06/19 18:51 Dose: 20 mg Morphine Sulfate (Morphine) 2 mg IVPUSH ONETIME ONE Stop: 09/06/19 20:11 Last Admin: 09/06/19 20:21 Dose: 2 mg Ondansetron HCl (Zofran) 4 mg IVPUSH ONETIME ONE Stop: 09/06/19 20:29 Last Admin: 09/06/19 21:06 Dose: 4 mg Ondansetron HCl (Zofran Odt) 4 mg PO Q4H PRN PRN Reason: nausea, able to take PO - Exam General: Alert, Oriented, Cooperative Lungs: Clear to Auscultation, Normal Respiratory Effort Cardiovascular: Regular Rate, Regular Rhythm GI/Abdominal Exam: Normal Bowel Sounds, Soft, Non-Tender Extremities: Normal Inspection, No Pedal Edema - Problem List Review Problem List Initiated/Reviewed/Updated: Yes - Plan Plan:: A: 1. Hypertensive urgency 2. Leukocytosis 3. Medical non-compliance 4. PMH SAVANNAH P: Hypertensive urgency- will continue with amlodipine, metoprolol and hydralazine. In addition to nicardapine drip per eICU management. dispo:1-2 days
[2019-09-07] MEDS: LORazepam 0.5 MG Tab PO PRN (16:56)
[2019-09-07] MEDS ORDERED: Promethazine 25 MG/ML SDV IM ONE (17:04)
[2019-09-07] MEDS ORDERED: Labetalol 100 MG/20 ML MDV IVPUSH PRN (17:10)
[2019-09-07 17:47] LABS: BLOOD UREA NITROGEN,BUN 13 mg/dL (7.0-18.0); CHLORIDE,CL 102 mmol/L (98-107); GLUCOSE RANDOM 113 mg/dL (74-106); POTASSIUM,K 3.1 mmol/L (3.5-5.1); SODIUM,NA 142 mmol/L (136-148)
[2019-09-07] MEDS: Labetalol 100 MG/20 ML MDV IVPUSH SCH (18:01)
[2019-09-07] MEDS ORDERED: Potassium Chloride Riders 40 MEQ in Premix Bag 1 BAG IV SCH (18:25)
[2019-09-07] MEDS ORDERED: diphenhydrAMINE 50 MG/ML SDV IVPUSH PRN (18:26)
[2019-09-07] MEDS ORDERED: Magnesium Sulfate/Water 4 GM in Premix Bag 1 BAG IV ONE (18:27)
[2019-09-07] MEDS ORDERED: Morphine 2 MG/ML Syringe IVPUSH PRN (19:15)
[2019-09-07] MEDS ORDERED: Sodium Chloride 0.9% 1,000 ML IV SCH (19:15)
[2019-09-07] MEDS: hydrALAZINE 25 MG Tab PO SCH ×2 (19:53→22:41)
[2019-09-08] MEDS: Labetalol 100 MG/20 ML MDV IVPUSH SCH ×4 (00:38→17:24)
[2019-09-08] MEDS: niCARdipine/Normal Saline 20 MG/200 ML BAG IV SCH (03:25)
[2019-09-08] MEDS: hydrALAZINE 25 MG Tab PO SCH ×4 (04:56→23:33)
[2019-09-08 06:03] LABS: BLOOD UREA NITROGEN,BUN 11 mg/dL (7.0-18.0); CARBON DIOXIDE,CO2 25.9 mmol/L (21.0-32.0); CHLORIDE,CL 104 mmol/L (98-107); GLUCOSE RANDOM 110 mg/dL (74-106); POTASSIUM,K 3.2 mmol/L (3.5-5.1); SODIUM,NA 141 mmol/L (136-148)
[2019-09-08] MEDS: cefTRIAXone 1 GM in Sodium Chloride 0.9% 50 ML IV SCH ×2 (08:33→21:28)
[2019-09-08] MEDS: amLODIPine 5 MG Tab PO SCH (08:33)
[2019-09-08] MEDS: Fluticasone Propionate Nasal Spray 16 GM Bottle NASBOTH SCH (08:33)
[2019-09-08] MEDS: Acetaminophen 325 MG Tab PO PRN ×2 (08:48→21:54)
[2019-09-08] MEDS: LORazepam 0.5 MG Tab PO PRN ×2 (08:49→21:54)
--- NOTE | 2019-09-08 09:43 | PN ---
THC Physician - Brief Progress [id number]/11/2019 09:07[facility] Jose Briones, ROSEND[facility] - DORYN SHIELAP[place] LESTERStephanie of Service 09/08/2019 09:07HPI/Events of Note eICU Progress [id number] admitted for hypertensive urgency. History obtained primarily from revi ew of EMR.Camera exam: Laying in bed. Vitals monitor reviewed. past BPs reading SBP 150-160s, HR 100V itals: reviewedLabs: reviewed, uptrending leukocytosis, hypokalemia, mild hyperglycemia, Radiology: r eviewedMeds: reviewed, per MAR on nicardipine 5mg/hr, and on amlodipine 10mg qD, hydralazine 25mg q6, scheduled IV push labetalol q6, metoprolol 25q12, eICU Impression and Recommendations:Sepsis, with p otential etiologies including sinusitis given CT head findings. It is unclear what to make of patient 's normal range ESR with regards to his diagnosis of sepsis - it certainly does rule out an acute vas culitic process given his complaints of eye pain.If not already done, recommend blood cultures, respi ratory cultures, urine microscopy to rule out pyuria. Consider lumbar puncture, especially if patient clinically deteriorates.Antibiotics per primary service, agree with ceftriaxone for coverage of sinu sitis. Hypokalemia and mild hypomagnesemiaReplace to target K >4, Mg > 2Hypertensive urgency/emergenc y, continuing to require nicardipine in addition to oral therapy. Etiology of this event is unclear, and appears to be at least in some part ascribed to possible medication non-compliance. Given marijua na positivity on UDS, cannot rule out catecholamine-mimicking recreational drug consumption (ie synth etic cannabinoids), however these tend to be more markedly manifested by behavioral changes rather th an isolated hypertension. Given age and persistent hypokalemia, cannot rule out other etiologies such as primary aldosteronism.Suggest initiation of PO labetalol and discontinuation of PO metoprolol, ra ther than PO metoprolol with scheduled IV labetalolSuggest initiation of work up for secondary hypert ension, starting with seated plasma aldosterone and plasma renin concentration, with confirmation jordy ting (if PAC >10 and PRA <1 or PRC less than lower limit of normal) depending on availability at inst itution (ie fludrocortisone suppression, saline suppression, or 24 hour urine aldosterone, sodium and creatinine)TSH, FT4, ionized calcium. Blood pressure testing in arms and legs to rule out coarctatio n of aorta. Given presence of headache - although of lower utility, can consider plasma normetanephri óscar/metanephrines, although less likely to be useful given current need for nicardipine, as well as c linical scenario does not appear to be typical of pheochromocytomaHyperglycemiaPRN insulin per instit utional sliding scale protocol with scheduled glucose checksRecommend targeted glucose goal of <180, and discontinuation of oral anti-hyperglycemicsconsider A1c if not obtained in past 6 monthsDVT and G I prophylaxis as appropriate.We are available to assist in further clarification, or implementation o f any of the above recommendations if desired by primary service.Thank you for allowing us to partici foley in the care of this patient.The above note transcribed via dictation software. Please excuse any errors.Interventions Major-Hypertension - evaluation and management
[2019-09-08] MEDS: Metoprolol Tartrate 25 MG Tab PO SCH ×2 (10:00→21:29)
[2019-09-08] MEDS: cloNIDine 0.1 MG Tab PO SCH ×3 (10:00→21:28)
--- NOTE | 2019-09-08 11:14 | PCM.PN ---
- General Info Date of Service: 09/08/19 Subjective Update: No acute events overnight. BP still elevated SBP 150's. Denies chest pain, dyspnea. State headache is improving. - Patient Data Vitals - Most Recent: Last Vital Signs Temp 36.1 C 09/08/19 08:00 Pulse 100 09/08/19 10:00 Resp 21 H 09/08/19 10:00 BP 170/100 H 09/08/19 10:23 Pulse Ox 96 09/08/19 10:00 Weight - Most Recent: 99.79 kg I&O - Last 24 Hours: Intake & Output 09/07/19 09/08/19 09/08/19 22:59 06:59 14:59 Intake Total 740 970 Output Total 940 850 Balance -200 120 Lab Results Last 24 Hours: Laboratory Results - last 24 hr 09/07/19 09/08/19 09/08/19 Range/Units 17:15 05:15 05:15 WBC 15.73 H (4.0-11.0) K/uL RBC 5.30 (4.50-5.90) M/uL Hgb 15.1 (13.0-17.0) g/dL Hct 44.4 (38.0-50.0) % MCV 83.8 (80.0-98.0) fL MCH 28.5 (27.0-32.0) pg MCHC 34.0 (31.0-37.0) g/dL RDW Std Deviation 44.0 (28.0-62.0) fl RDW Coeff of Cathleen 14 (11.0-15.0) % Plt Count 227 (150-400) K/uL MPV 11.30 (7.40-12.00) fL Neut % (Auto) 80.4 H (48.0-80.0) % Lymph % (Auto) 13.4 L (16.0-40.0) % [place] % (Auto) 5.7 (0.0-15.0) % Eos % (Auto) 0.3 (0.0-7.0) % Baso % (Auto) 0.2 (0.0-1.5) % Neut # (Auto) 12.7 H (1.4-5.7) K/uL Lymph # (Auto) 2.1 (0.6-2.4) K/uL [place] # (Auto) 0.9 H (0.0-0.8) K/uL Eos # (Auto) 0.0 (0.0-0.7) K/uL Baso # (Auto) 0.0 (0.0-0.1) K/uL Nucleated RBC % 0.0 /100WBC Nucleated RBCs # 0 K/uL Sodium 142 141 (136-148) mmol/L Potassium 3.1 L 3.2 L (3.5-5.1) mmol/L Chloride 102 104 (98-107) mmol/L Carbon Dioxide 27.0 25.9 (21.0-32.0) mmol/L BUN 13 11 (7.0-18.0) mg/dL Creatinine 1.4 H 1.2 (0.8-1.3) mg/dL Est Cr Clr Drug Dosing 76.94 89.77 mL/min Estimated GFR (MDRD) > 60.0 > 60.0 ml/min Glucose 113 H 110 H (74-106) mg/dL Calcium 9.1 8.4 L (8.5-10.1) mg/dL Phosphorus 3.4 (2.6-4.7) mg/dL Magnesium 1.8 (1.8-2.4) mg/dL Total Bilirubin 0.8 (0.2-1.0) mg/dL AST 27 (15-37) IU/L ALT 36 (14-63) IU/L Alkaline Phosphatase 71 (46-116) U/L Total Protein 7.8 (6.4-8.2) g/dL Albumin 4.0 (3.4-5.0) g/dL Globulin 3.8 (2.6-4.0) g/dL Albumin/Globulin Ratio 1.1 (0.9-1.6) Benji Results Last 24 Hours: Microbiology 09/07/19 08:45 Aerobic Blood Culture - Preliminary Blood - Venous - Lab Draw NO GROWTH AFTER 1 DAY Anaerobic Blood Culture - Preliminary NO GROWTH AFTER 1 DAY 09/07/19 09:05 Aerobic Blood Culture - Preliminary Blood - Venous NO GROWTH AFTER 1 DAY Anaerobic Blood Culture - Preliminary NO GROWTH AFTER 1 DAY Med Orders - Current: Current Medications Acetaminophen (Tylenol) 650 mg PO Q4H PRN PRN Reason: Pain (Mild 1-3)/fever Last Admin: 09/08/19 08:48 Dose: 650 mg Albuterol (Ventolin Hfa) 0 gm INH Q4H PRN PRN Reason: Wheezing Amlodipine Besylate (Norvasc) 10 mg PO DAILY MALLIKA Last Admin: 09/08/19 08:33 Dose: 10 mg Clonidine HCl (Catapres) 0.1 mg PO TID MALLIKA Last Admin: 09/08/19 10:00 Dose: 0.1 mg Diphenhydramine HCl (Benadryl) 50 mg IVPUSH Q6H PRN PRN Reason: Anxiety Fluticasone Propionate (Flonase) 0 gm NASBOTH DAILY MALLIKA Last Admin: 09/08/19 08:33 Dose: 1 spray Hydralazine HCl (Apresoline) 10 mg IVPUSH Q4H PRN PRN Reason: Hypertension Last Admin: 09/07/19 15:12 Dose: 10 mg Hydralazine HCl (Apresoline) 25 mg PO Q6H MALLIKA Last Admin: 09/08/19 10:23 Dose: 25 mg Nicardipine HCl (Cardene 20 Mg In Ns 200 Ml) 20 mg in 200 mls @ 50 mls/hr IV TITRATE MALLIKA; Protocol Last Titration: 09/08/19 07:55 Dose: 5 mg/hr, 50 mls/hr Ceftriaxone Sodium 1 gm/ (Sodium Chloride) 50 mls @ 100 mls/hr IV Q12H MALLIKA Last Admin: 09/08/19 08:33 Dose: 100 mls/hr Sodium Chloride (Normal Saline) 1,000 mls @ 125 mls/hr IV ASDIRECTED [facility] Last Infusion: 09/08/19 00:40 Dose: 0 mls/hr Labetalol HCl (Normodyne) 10 mg IVPUSH Q6H MALLIKA; Protocol Last Admin: 09/08/19 06:04 Dose: 10 mg Lorazepam (Ativan) 0.5 mg PO Q8H PRN PRN Reason: Anxiety Last Admin: 09/08/19 08:49 Dose: 0.5 mg Metoprolol Tartrate (Lopressor) 25 mg PO Q12H MALLIKA Last Admin: 09/08/19 10:00 Dose: 25 mg Ondansetron HCl (Zofran) 4 mg IVPUSH Q4H PRN PRN Reason: Nausea/Vomiting Last Admin: 09/07/19 07:52 Dose: 4 mg Sodium Chloride (Saline Flush) 10 ml FLUSH ASDIRECTED PRN PRN Reason: Keep Vein Open Sodium Chloride (Saline Flush) 2.5 ml FLUSH ASDIRECTED PRN PRN Reason: Keep Vein Open Sodium Chloride ([place] Nasal [place]) 0 ml SVETLANA TID MALLIKA Discontinued Medications Hydralazine HCl (Apresoline) 10 mg IVPUSH ONETIME ONE Stop: 09/06/19 19:36 Last Admin: 09/06/19 19:42 Dose: 10 mg Hydralazine HCl (Apresoline) 10 mg IVPUSH ONETIME ONE Stop: 09/06/19 21:26 Last Admin: 09/06/19 21:30 Dose: 10 mg Hydralazine HCl (Apresoline) 10 mg PO Q6H MALLIKA Last Admin: 09/07/19 16:56 Dose: 10 mg Sodium Chloride (Normal Saline) 1,000 mls @ 999 mls/hr IV STAT ONE Stop: 09/06/19 19:47 Last Admin: 09/06/19 18:50 Dose: 999 mls/hr Potassium Chloride 40 meq/ (Premix) 100 mls @ 25 mls/hr IV Q4H MALLIKA Stop: 09/07/19 22:24 Last Admin: 09/07/19 19:53 Dose: 25 mls/hr Magnesium Sulfate 4 gm/ Premix 100 mls @ 50 mls/hr IV ONETIME ONE Stop: 09/07/19 20:26 Last Admin: 09/07/19 19:41 Dose: 50 mls/hr Labetalol HCl (Normodyne) 20 mg IVPUSH ONETIME ONE; Protocol Stop: 09/06/19 18:00 Last Admin: 09/06/19 18:13 Dose: 20 mg Labetalol HCl (Normodyne) 20 mg IVPUSH ONETIME ONE; Protocol Stop: 09/06/19 18:48 Last Admin: 09/06/19 18:51 Dose: 20 mg Labetalol HCl (Normodyne) 19 mg IVPUSH Q4H PRN; Protocol PRN Reason: Hypertension Morphine Sulfate (Morphine) 2 mg IVPUSH ONETIME ONE Stop: 09/06/19 20:11 Last Admin: 09/06/19 20:21 Dose: 2 mg Morphine Sulfate (Morphine) 2 mg IVPUSH Q2H PRN PRN Reason: Pain (severe 7-10) Stop: 09/07/19 22:18 Last Admin: 09/07/19 11:45 Dose: 2 mg Morphine Sulfate (Morphine) 2 mg IVPUSH Q2H PRN PRN Reason: Pain (severe 7-10) Stop: 09/07/19 22:18 Ondansetron HCl (Zofran) 4 mg IVPUSH ONETIME ONE Stop: 09/06/19 20:29 Last Admin: 09/06/19 21:06 Dose: 4 mg Ondansetron HCl (Zofran Odt) 4 mg PO Q4H PRN PRN Reason: nausea, able to take PO Promethazine HCl (Phenergan) 25 mg IM ONETIME ONE Stop: 09/07/19 17:05 Last Admin: 09/07/19 17:37 Dose: 25 mg - Exam General: Alert, Oriented, Cooperative, No Acute Distress Lungs: Clear to Auscultation, Normal Respiratory Effort. No: Crackles, Wheezing Cardiovascular: Regular Rate, Regular Rhythm GI/Abdominal Exam: Normal Bowel Sounds, Soft, Non-Tender Extremities: Normal Inspection, Non-Tender, No Pedal Edema Skin: Warm, Dry - Problem List Review Problem List Initiated/Reviewed/Updated: Yes - My Orders Last 24 Hours: My Active Orders 09/07/19 13:23 EKG 12 Lead [EKG Documentation Completion] [RC] STAT 09/07/19 16:01 LORazepam [Ativan] 0.5 mg PO Q8H PRN - Plan Plan:: A: 1. Hypertensive urgency 2. Acute sinusitis 3. Medical non-compliance 4. PMH SAVANNAH P: Will continue with current antihypertensive regimen recommended by eICU. Added clonidine 0.1 mg PO TID. In addition, continue with ceftriaxone for acute sinusitis. BP seems to be improving slowly. dispo:1-2 days
[2019-09-08] MEDS: Sodium Chloride 0.65% Nasal Spray 45 ML Bottle NAS SCH ×2 (13:22→21:43)
[2019-09-09] MEDS: Labetalol 100 MG/20 ML MDV IVPUSH SCH ×2 (00:59→05:12)
[2019-09-09] MEDS: hydrALAZINE 25 MG Tab PO SCH ×4 (04:36→22:19)
[2019-09-09] MEDS: cloNIDine 0.1 MG Tab PO SCH ×3 (05:09→22:19)
[2019-09-09] MEDS: Sodium Chloride 0.65% Nasal Spray 45 ML Bottle NAS SCH ×3 (06:52→22:20)
[2019-09-09] MEDS: cefTRIAXone 1 GM in Sodium Chloride 0.9% 50 ML IV SCH ×2 (08:25→20:07)
[2019-09-09] MEDS: Acetaminophen 325 MG Tab PO PRN ×2 (08:27→19:17)
[2019-09-09] MEDS: hydrALAZINE 20 MG/ML SDV IVPUSH PRN (08:35)
[2019-09-09] MEDS: Fluticasone Propionate Nasal Spray 16 GM Bottle NASBOTH SCH (08:40)
[2019-09-09 08:45] LABS: BLOOD UREA NITROGEN,BUN 15 mg/dL (7.0-18.0); CHLORIDE,CL 105 mmol/L (98-107); GLUCOSE RANDOM 94 mg/dL (74-106); POTASSIUM,K 3.5 mmol/L (3.5-5.1); SODIUM,NA 143 mmol/L (136-148)
[2019-09-09] MEDS: amLODIPine 5 MG Tab PO SCH (09:23)
--- NOTE | 2019-09-09 09:45 | PN ---
THC Physician - Brief Progress [id number]/12/2019 09:36[facility] Jose edouard, ROSEND[facility] - DORYN YESI PAXTONLd HEREDIAte of Service 09/09/2019 09:36HPI/Events of Note eICU Progress [id number] admitted for hypertensive urgency. History obtained primarily from revi ew of EMR.Camera exam: Laying in bed. Vitals monitor reviewed. SBP 170s, HR 90sVitals: reviewedLabs: reviewed, downtrending leukocytosis, improvement in hypokalemia to 3.5Radiology: reviewedMeds: review edeICU Impression and Recommendations:Sepsis attributed to sinusitis, improving with antibioticsHyper tensive urgency/emergency, improved, now off nicardipine drip per EMR, and had clonidine addedDiabete s mellitusNo new recommendations at this time. Please see prior recommendations on work up of seconda ry hypertension.As stated prior consider changing oral metoprolol with labetalol push to oral labetal ol. Would recommend titrating up dosage of current medications to maximum tolerated dose before inita tion of new agents.Thank you for allowing us to participate in the care of this patient.Interventions Major-Hypertension - evaluation and managementElectronically Signed by: FIOR VALLES) on 08/29 09:44
[2019-09-09] MEDS ORDERED: cloNIDine 0.1 MG/Day Transdermal Patch TRDERM SCH (10:15)
[2019-09-09] MEDS: Labetalol 100 MG Tab PO SCH ×2 (10:30→20:17)
[2019-09-09] MEDS: Chlorthalidone 25 MG Tab PO SCH (10:31)
--- NOTE | 2019-09-09 14:04 | PCM.PN ---
<Farhan Patel - Last Filed: 09/09/19 14:24> - General Info Date of Service: 09/09/19 Subjective Update: No acute events overnight. No fevers. States headache is better. still some nasal, sinus congestion. SBP has been ranging from 150-170's. No chest pain, dyspnea, abdominal pain,dysuria, diarrhea - Patient Data Vitals - Most Recent: Last Vital Signs Temp 36.8 C 09/09/19 08:27 Pulse 89 09/09/19 10:30 Resp 14 09/09/19 13:00 BP 150/99 H 09/09/19 13:00 Pulse Ox 96 09/09/19 13:00 Weight - Most Recent: 103.1 kg I&O - Last 24 Hours: Intake & Output 09/08/19 09/09/19 09/09/19 22:59 06:59 14:59 Intake Total 500 1090 1670 Output Total 450 400 950 Balance 50 690 720 Lab Results Last 24 Hours: Laboratory Results - last 24 hr 09/07/19 09/09/19 09/09/19 Range/Units 09:05 08:03 08:03 WBC 13.79 H (4.0-11.0) K/uL RBC 5.18 (4.50-5.90) M/uL Hgb 14.8 (13.0-17.0) g/dL Hct 44.1 (38.0-50.0) % MCV 85.1 (80.0-98.0) fL MCH 28.6 (27.0-32.0) pg MCHC 33.6 (31.0-37.0) g/dL RDW Std Deviation 46.1 (28.0-62.0) fl RDW Coeff of Cathleen 15 (11.0-15.0) % Plt Count 224 (150-400) K/uL MPV 10.90 (7.40-12.00) fL Neut % (Auto) 72.4 (48.0-80.0) % Lymph % (Auto) 19.4 (16.0-40.0) % Alcorn % (Auto) 6.3 (0.0-15.0) % Eos % (Auto) 1.7 (0.0-7.0) % Baso % (Auto) 0.2 (0.0-1.5) % Neut # (Auto) 10.0 H (1.4-5.7) K/uL Lymph # (Auto) 2.7 H (0.6-2.4) K/uL Alcorn # (Auto) 0.9 H (0.0-0.8) K/uL Eos # (Auto) 0.2 (0.0-0.7) K/uL Baso # (Auto) 0.0 (0.0-0.1) K/uL Nucleated RBC % 0.0 /100WBC Nucleated RBCs # 0 K/uL Sodium (136-148) mmol/L Potassium (3.5-5.1) mmol/L Chloride (98-107) mmol/L Carbon Dioxide (21.0-32.0) mmol/L BUN (7.0-18.0) mg/dL Creatinine (0.8-1.3) mg/dL Est Cr Clr Drug Dosing mL/min Estimated GFR (MDRD) ml/min Glucose (74-106) mg/dL Calcium (8.5-10.1) mg/dL Magnesium 2.3 (1.8-2.4) mg/dL Total Bilirubin (0.2-1.0) mg/dL AST (15-37) IU/L ALT (14-63) IU/L Alkaline Phosphatase (46-116) U/L Total Protein (6.4-8.2) g/dL Albumin (3.4-5.0) g/dL Globulin (2.6-4.0) g/dL Albumin/Globulin Ratio (0.9-1.6) Procalcitonin <0.05 (<0.10) ng/mL 09/09/19 Range/Units 08:03 WBC (4.0-11.0) K/uL RBC (4.50-5.90) M/uL Hgb (13.0-17.0) g/dL Hct (38.0-50.0) % MCV (80.0-98.0) fL MCH (27.0-32.0) pg MCHC (31.0-37.0) g/dL RDW Std Deviation (28.0-62.0) fl RDW Coeff of Cathleen (11.0-15.0) % Plt Count (150-400) K/uL MPV (7.40-12.00) fL Neut % (Auto) (48.0-80.0) % Lymph % (Auto) (16.0-40.0) % Alcorn % (Auto) (0.0-15.0) % Eos % (Auto) (0.0-7.0) % Baso % (Auto) (0.0-1.5) % Neut # (Auto) (1.4-5.7) K/uL Lymph # (Auto) (0.6-2.4) K/uL Alcorn # (Auto) (0.0-0.8) K/uL Eos # (Auto) (0.0-0.7) K/uL Baso # (Auto) (0.0-0.1) K/uL Nucleated RBC % /100WBC Nucleated RBCs # K/uL Sodium 143 (136-148) mmol/L Potassium 3.5 (3.5-5.1) mmol/L Chloride 105 (98-107) mmol/L Carbon Dioxide 29.0 (21.0-32.0) mmol/L BUN 15 (7.0-18.0) mg/dL Creatinine 1.4 H (0.8-1.3) mg/dL Est Cr Clr Drug Dosing 76.94 mL/min Estimated GFR (MDRD) > 60.0 ml/min Glucose 94 (74-106) mg/dL Calcium 8.5 (8.5-10.1) mg/dL Magnesium (1.8-2.4) mg/dL Total Bilirubin 1.1 H (0.2-1.0) mg/dL AST 21 (15-37) IU/L ALT 33 (14-63) IU/L Alkaline Phosphatase 67 (46-116) U/L Total Protein 7.4 (6.4-8.2) g/dL Albumin 3.8 (3.4-5.0) g/dL Globulin 3.6 (2.6-4.0) g/dL Albumin/Globulin Ratio 1.1 (0.9-1.6) Procalcitonin (<0.10) ng/mL Benji Results Last 24 Hours: Microbiology 09/07/19 08:45 Aerobic Blood Culture - Preliminary Blood - Venous - Lab Draw NO GROWTH AFTER 2 DAYS Anaerobic Blood Culture - Preliminary NO GROWTH AFTER 2 DAYS 09/07/19 09:05 Aerobic Blood Culture - Preliminary Blood - Venous NO GROWTH AFTER 2 DAYS Anaerobic Blood Culture - Preliminary NO GROWTH AFTER 2 DAYS Med Orders - Current: Current Medications Acetaminophen (Tylenol) 650 mg PO Q4H PRN PRN Reason: Pain (Mild 1-3)/fever Last Admin: 09/09/19 08:27 Dose: 650 mg Albuterol (Ventolin Hfa) 0 gm INH Q4H PRN PRN Reason: Wheezing Amlodipine Besylate (Norvasc) 10 mg PO DAILY [facility] Last Admin: 09/09/19 09:23 Dose: 10 mg Chlorthalidone (Chlorthalidone) 25 mg PO DAILY [facility] Last Admin: 09/09/19 10:31 Dose: 25 mg Clonidine HCl (Catapres) 0.1 mg PO TID [facility] Last Admin: 09/09/19 05:09 Dose: 0.1 mg Clonidine HCl (Catapres-Tts 1) 0.1 mg TRDERM Q7D [facility] Last Admin: 09/09/19 10:43 Dose: 0.1 mg Diphenhydramine HCl (Benadryl) 50 mg IVPUSH Q6H PRN PRN Reason: Anxiety Fluticasone Propionate (Flonase) 0 gm NASBOTH DAILY [facility] Last Admin: 09/09/19 08:40 Dose: 2 spray Hydralazine HCl (Apresoline) 25 mg PO Q6H [facility] Last Admin: 09/09/19 10:38 Dose: 25 mg Ceftriaxone Sodium 1 gm/ (Sodium Chloride) 50 mls @ 100 mls/hr IV Q12H [facility] Last Admin: 09/09/19 08:25 Dose: 100 mls/hr Labetalol HCl (Normodyne) 100 mg PO BID [facility] Last Admin: 09/09/19 10:30 Dose: 100 mg Lorazepam (Ativan) 0.5 mg PO Q8H PRN PRN Reason: Anxiety Last Admin: 09/08/19 21:54 Dose: 0.5 mg Ondansetron HCl (Zofran) 4 mg IVPUSH Q4H PRN PRN Reason: Nausea/Vomiting Last Admin: 09/07/19 07:52 Dose: 4 mg Sodium Chloride (Saline Flush) 10 ml FLUSH ASDIRECTED PRN PRN Reason: Keep Vein Open Last Admin: 09/09/19 08:38 Dose: 10 ml Sodium Chloride (Saline Flush) 2.5 ml FLUSH ASDIRECTED PRN PRN Reason: Keep Vein Open Sodium Chloride ([place] Nasal [place]) 0 ml SVETLANA TID [facility] Last Admin: 09/09/19 06:52 Dose: 1 spray Discontinued Medications Hydralazine HCl (Apresoline) 10 mg IVPUSH ONETIME ONE Stop: 09/06/19 19:36 Last Admin: 09/06/19 19:42 Dose: 10 mg Hydralazine HCl (Apresoline) 10 mg IVPUSH ONETIME ONE Stop: 09/06/19 21:26 Last Admin: 09/06/19 21:30 Dose: 10 mg Hydralazine HCl (Apresoline) 10 mg PO Q6H [facility] Last Admin: 09/07/19 16:56 Dose: 10 mg Hydralazine HCl (Apresoline) 10 mg IVPUSH Q4H PRN PRN Reason: Hypertension Last Admin: 09/09/19 08:35 Dose: 10 mg Sodium Chloride (Normal Saline) 1,000 mls @ 999 mls/hr IV STAT ONE Stop: 09/06/19 19:47 Last Admin: 09/06/19 18:50 Dose: 999 mls/hr Nicardipine HCl (Cardene 20 Mg In Ns 200 Ml) 20 mg in 200 mls @ 50 mls/hr IV TITRATE [facility]; Protocol Stop: 09/09/19 01:00 Last Titration: 09/08/19 07:55 Dose: 5 mg/hr, 50 mls/hr Potassium Chloride 40 meq/ (Premix) 100 mls @ 25 mls/hr IV Q4H [facility] Stop: 09/07/19 22:24 Last Admin: 09/07/19 19:53 Dose: 25 mls/hr Magnesium Sulfate 4 gm/ Premix 100 mls @ 50 mls/hr IV ONETIME ONE Stop: 09/07/19 20:26 Last Admin: 09/07/19 19:41 Dose: 50 mls/hr Sodium Chloride (Normal Saline) 1,000 mls @ 125 mls/hr IV ASDIRECTED [facility] Last Infusion: 09/08/19 00:40 Dose: 0 mls/hr Labetalol HCl (Normodyne) 20 mg IVPUSH ONETIME ONE; Protocol Stop: 09/06/19 18:00 Last Admin: 09/06/19 18:13 Dose: 20 mg Labetalol HCl (Normodyne) 20 mg IVPUSH ONETIME ONE; Protocol Stop: 09/06/19 18:48 Last Admin: 09/06/19 18:51 Dose: 20 mg Labetalol HCl (Normodyne) 19 mg IVPUSH Q4H PRN; Protocol PRN Reason: Hypertension Labetalol HCl (Normodyne) 10 mg IVPUSH Q6H [facility]; Protocol Last Admin: 09/09/19 05:12 Dose: 10 mg Metoprolol Tartrate (Lopressor) 25 mg PO Q12H [facility] Last Admin: 09/08/19 21:29 Dose: 25 mg Morphine Sulfate (Morphine) 2 mg IVPUSH ONETIME ONE Stop: 09/06/19 20:11 Last Admin: 09/06/19 20:21 Dose: 2 mg Morphine Sulfate (Morphine) 2 mg IVPUSH Q2H PRN PRN Reason: Pain (severe 7-10) Stop: 09/07/19 22:18 Last Admin: 09/07/19 11:45 Dose: 2 mg Morphine Sulfate (Morphine) 2 mg IVPUSH Q2H PRN PRN Reason: Pain (severe 7-10) Stop: 09/07/19 22:18 Ondansetron HCl (Zofran) 4 mg IVPUSH ONETIME ONE Stop: 09/06/19 20:29 Last Admin: 09/06/19 21:06 Dose: 4 mg Ondansetron HCl (Zofran Odt) 4 mg PO Q4H PRN PRN Reason: nausea, able to take PO Promethazine HCl (Phenergan) 25 mg IM ONETIME ONE Stop: 09/07/19 17:05 Last Admin: 09/07/19 17:37 Dose: 25 mg - Exam General: Alert, Oriented, Cooperative Lungs: Clear to Auscultation, Normal Respiratory Effort Cardiovascular: Regular Rate, Regular Rhythm GI/Abdominal Exam: Normal Bowel Sounds, Soft, Non-Tender Extremities: Normal Inspection, No Pedal Edema - Problem List Review Problem List Initiated/Reviewed/Updated: Yes - Plan Plan:: A: 1. Hypertensive emergency 2. Acute sinusitis 3. Acute kidney injury 4. Medical non-compliance P: 1. Hypertensive emergency- improved. Off nicardapine drip and now on oral antihypertensives. Will add labetalol 100 mg PO BID and transition to transdermal clonidine. Continue amlodipine 10 mg po daily, chlorthalidone 25 mg PO daily, hydralazine 25 mg PO Q6H. 2. Acute sinusitis- improving. will switch to PO tomorrow. 3. Acute kidney injury- encouraging oral hydration. dispo: likely dc 1-2 days. <Marla Jacques - Last Filed: 09/10/19 14:12> - Patient Data Vitals - Most Recent: Last Vital Signs Temp 36.4 C 09/10/19 11:55 Pulse 97 09/10/19 13:45 Resp 20 09/10/19 11:55 BP 129/73 09/10/19 13:45 Pulse Ox 99 09/10/19 11:55 I&O - Last 24 Hours: Intake & Output 09/09/19 09/10/19 09/10/19 22:59 06:59 14:59 Intake Total 400 800 Output Total 1175 700 Balance -775 100 Lab Results Last 24 Hours: Laboratory Results - last 24 hr 09/10/19 09/10/19 Range/Units 05:31 05:31 WBC 10.67 (4.0-11.0) K/uL RBC 5.02 (4.50-5.90) M/uL Hgb 14.3 (13.0-17.0) g/dL Hct 42.6 (38.0-50.0) % MCV 84.9 (80.0-98.0) fL MCH 28.5 (27.0-32.0) pg MCHC 33.6 (31.0-37.0) g/dL RDW Std Deviation 45.2 (28.0-62.0) fl RDW Coeff of Cathleen 15 (11.0-15.0) % Plt Count 225 (150-400) K/uL MPV 11.30 (7.40-12.00) fL Neut % (Auto) 69.2 (48.0-80.0) % Lymph % (Auto) 21.3 (16.0-40.0) % Alcorn % (Auto) 7.0 (0.0-15.0) % Eos % (Auto) 2.2 (0.0-7.0) % Baso % (Auto) 0.3 (0.0-1.5) % Neut # (Auto) 7.4 H (1.4-5.7) K/uL Lymph # (Auto) 2.3 (0.6-2.4) K/uL Alcorn # (Auto) 0.8 (0.0-0.8) K/uL Eos # (Auto) 0.2 (0.0-0.7) K/uL Baso # (Auto) 0.0 (0.0-0.1) K/uL Nucleated RBC % 0.0 /100WBC Nucleated RBCs # 0 K/uL Sodium 140 (136-148) mmol/L Potassium 3.5 (3.5-5.1) mmol/L Chloride 101 (98-107) mmol/L Carbon Dioxide 28.1 (21.0-32.0) mmol/L BUN 14 (7.0-18.0) mg/dL Creatinine 1.3 (0.8-1.3) mg/dL Est Cr Clr Drug Dosing 82.86 mL/min Estimated GFR (MDRD) > 60.0 ml/min Glucose 92 (74-106) mg/dL Calcium 8.9 (8.5-10.1) mg/dL Total Bilirubin 1.3 H (0.2-1.0) mg/dL AST 18 (15-37) IU/L ALT 30 (14-63) IU/L Alkaline Phosphatase 64 (46-116) U/L Total Protein 7.5 (6.4-8.2) g/dL Albumin 3.8 (3.4-5.0) g/dL Globulin 3.7 (2.6-4.0) g/dL Albumin/Globulin Ratio 1.0 (0.9-1.6) Benji Results Last 24 Hours: Microbiology 09/07/19 08:45 Aerobic Blood Culture - Preliminary Blood - Venous - Lab Draw NO GROWTH AFTER 3 DAYS Anaerobic Blood Culture - Preliminary NO GROWTH AFTER 3 DAYS 09/07/19 09:05 Aerobic Blood Culture - Preliminary Blood - Venous NO GROWTH AFTER 3 DAYS Anaerobic Blood Culture - Preliminary NO GROWTH AFTER 3 DAYS Med Orders - Current: Current Medications Acetaminophen (Tylenol) 650 mg PO Q4H PRN PRN Reason: Pain (Mild 1-3)/fever Last Admin: 09/10/19 03:29 Dose: 650 mg Albuterol (Ventolin Hfa) 0 gm INH Q4H PRN PRN Reason: Wheezing Amlodipine Besylate (Norvasc) 10 mg PO DAILY [facility] Last Admin: 09/10/19 09:21 Dose: 10 mg Amoxicillin/Clavulanate Potassium (Augmentin 875 Mg/125 Mg) 1 tab PO Q12HR [facility] Bisacodyl (Dulcolax) 10 mg PO DAILY PRN PRN Reason: Constipation Chlorthalidone (Chlorthalidone) 50 mg PO DAILY [facility] Clonidine HCl (Catapres-Tts 1) 0.1 mg TRDERM Q7D [facility] Last Admin: 09/09/19 10:43 Dose: 0.1 mg Clonidine HCl (Catapres) 0.1 mg PO BID [facility] Last Admin: 09/10/19 09:19 Dose: 0.1 mg Diphenhydramine HCl (Benadryl) 50 mg IVPUSH Q6H PRN PRN Reason: Anxiety Enoxaparin Sodium (Lovenox) 40 mg SUBCUT Q24H [facility] Last Admin: 09/10/19 08:59 Dose: 40 mg Fluticasone Propionate (Flonase) 0 gm NASBOTH DAILY [facility] Last Admin: 09/10/19 09:19 Dose: 2 spray Hydralazine HCl (Apresoline) 25 mg PO BID [facility] Labetalol HCl (Normodyne) 100 mg PO TID [facility] Last Admin: 09/10/19 13:45 Dose: 100 mg Lorazepam (Ativan) 0.5 mg PO Q8H PRN PRN Reason: Anxiety Last Admin: 09/08/19 21:54 Dose: 0.5 mg Ondansetron HCl (Zofran) 4 mg IVPUSH Q4H PRN PRN Reason: Nausea/Vomiting Last Admin: 09/07/19 07:52 Dose: 4 mg Polyethylene Glycol (Miralax) 17 gm PO TID PRN PRN Reason: Constipation Last Admin: 09/10/19 11:50 Dose: 17 gm Sodium Chloride (Saline Flush) 10 ml FLUSH ASDIRECTED PRN PRN Reason: Keep Vein Open Last Admin: 09/09/19 08:38 Dose: 10 ml Sodium Chloride (Saline Flush) 2.5 ml FLUSH ASDIRECTED PRN PRN Reason: Keep Vein Open Sodium Chloride ([place] Nasal [place]) 0 ml SVETLANA TID [facility] Last Admin: 09/10/19 13:45 Dose: 2 spray Discontinued Medications Chlorthalidone (Chlorthalidone) 25 mg PO DAILY [facility] Last Admin: 09/10/19 09:20 Dose: 25 mg Chlorthalidone (Chlorthalidone) 25 mg PO ONETIME ONE Stop: 09/10/19 09:44 Last Admin: 09/10/19 09:58 Dose: 25 mg Clonidine HCl (Catapres) 0.1 mg PO TID [facility] Last Admin: 09/10/19 05:24 Dose: 0.1 mg Hydralazine HCl (Apresoline) 10 mg IVPUSH ONETIME ONE Stop: 09/06/19 19:36 Last Admin: 09/06/19 19:42 Dose: 10 mg Hydralazine HCl (Apresoline) 10 mg IVPUSH ONETIME ONE Stop: 09/06/19 21:26 Last Admin: 09/06/19 21:30 Dose: 10 mg Hydralazine HCl (Apresoline) 10 mg PO Q6H [facility] Last Admin: 09/07/19 16:56 Dose: 10 mg Hydralazine HCl (Apresoline) 10 mg IVPUSH Q4H PRN PRN Reason: Hypertension Last Admin: 09/09/19 08:35 Dose: 10 mg Hydralazine HCl (Apresoline) 25 mg PO Q6H [facility] Last Admin: 09/10/19 05:24 Dose: 25 mg Sodium Chloride (Normal Saline) 1,000 mls @ 999 mls/hr IV STAT ONE Stop: 09/06/19 19:47 Last Admin: 09/06/19 18:50 Dose: 999 mls/hr Nicardipine HCl (Cardene 20 Mg In Ns 200 Ml) 20 mg in 200 mls @ 50 mls/hr IV TITRATE [facility]IKA; Protocol Stop: 09/09/19 01:00 Last Titration: 09/08/19 07:55 Dose: 5 mg/hr, 50 mls/hr Ceftriaxone Sodium 1 gm/ (Sodium Chloride) 50 mls @ 100 mls/hr IV Q12H [facility] Last Admin: 09/10/19 09:00 Dose: 100 mls/hr Potassium Chloride 40 meq/ (Premix) 100 mls @ 25 mls/hr IV Q4H [facility] Stop: 09/07/19 22:24 Last Admin: 09/07/19 19:53 Dose: 25 mls/hr Magnesium Sulfate 4 gm/ Premix 100 mls @ 50 mls/hr IV ONETIME ONE Stop: 09/07/19 20:26 Last Admin: 09/07/19 19:41 Dose: 50 mls/hr Sodium Chloride (Normal Saline) 1,000 mls @ 125 mls/hr IV ASDIRECTED [facility]ALLIKA Last Infusion: 09/08/19 00:40 Dose: 0 mls/hr Labetalol HCl (Normodyne) 20 mg IVPUSH ONETIME ONE; Protocol Stop: 09/06/19 18:00 Last Admin: 09/06/19 18:13 Dose: 20 mg Labetalol HCl (Normodyne) 20 mg IVPUSH ONETIME ONE; Protocol Stop: 09/06/19 18:48 Last Admin: 09/06/19 18:51 Dose: 20 mg Labetalol HCl (Normodyne) 19 mg IVPUSH Q4H PRN; Protocol PRN Reason: Hypertension Labetalol HCl (Normodyne) 10 mg IVPUSH Q6H [facility]; Protocol Last Admin: 09/09/19 05:12 Dose: 10 mg Labetalol HCl (Normodyne) 100 mg PO BID [facility] Last Admin: 09/10/19 09:20 Dose: 100 mg Metoprolol Tartrate (Lopressor) 25 mg PO Q12H [facility] Last Admin: 09/08/19 21:29 Dose: 25 mg Morphine Sulfate (Morphine) 2 mg IVPUSH ONETIME ONE Stop: 09/06/19 20:11 Last Admin: 09/06/19 20:21 Dose: 2 mg Morphine Sulfate (Morphine) 2 mg IVPUSH Q2H PRN PRN Reason: Pain (severe 7-10) Stop: 09/07/19 22:18 Last Admin: 09/07/19 11:45 Dose: 2 mg Morphine Sulfate (Morphine) 2 mg IVPUSH Q2H PRN PRN Reason: Pain (severe 7-10) Stop: 09/07/19 22:18 Ondansetron HCl (Zofran) 4 mg IVPUSH ONETIME ONE Stop: 09/06/19 20:29 Last Admin: 09/06/19 21:06 Dose: 4 mg Ondansetron HCl (Zofran Odt) 4 mg PO Q4H PRN PRN Reason: nausea, able to take PO Promethazine HCl (Phenergan) 25 mg IM ONETIME ONE Stop: 09/07/19 17:05 Last Admin: 09/07/19 17:37 Dose: 25 mg - Problem List & Annotations (1) Acute sinusitis SNOMED Code(s): 11247325 Code(s): J01.90 - ACUTE SINUSITIS, UNSPECIFIED Status: Acute Current Visit: Yes (2) Hypertensive urgency SNOMED Code(s): 699526171 Code(s): I16.0 - HYPERTENSIVE URGENCY Status: Acute Current Visit: Yes - Problem List Review Problem List Initiated/Reviewed/Updated: Yes - Plan Plan:: I have seen and evaluated the patient and agree with the residents note unless specified in my note
[2019-09-10] MEDS: Acetaminophen 325 MG Tab PO PRN (03:29)
[2019-09-10] MEDS: Sodium Chloride 0.65% Nasal Spray 45 ML Bottle NAS SCH ×3 (05:24→22:53)
[2019-09-10] MEDS: cloNIDine 0.1 MG Tab PO SCH ×3 (05:24→20:02)
[2019-09-10] MEDS: hydrALAZINE 25 MG Tab PO SCH ×2 (05:24→20:03)
[2019-09-10 06:37] LABS: BLOOD UREA NITROGEN,BUN 14 mg/dL (7.0-18.0); CARBON DIOXIDE,CO2 28.1 mmol/L (21.0-32.0); CHLORIDE,CL 101 mmol/L (98-107); GLUCOSE RANDOM 92 mg/dL (74-106); POTASSIUM,K 3.5 mmol/L (3.5-5.1); SODIUM,NA 140 mmol/L (136-148)
--- NOTE | 2019-09-10 08:35 | PN ---
THC Physician - Brief Progress [id number]/13/2019 08:22[facility] Jose edouard, ROSENDO - CRISTIANO (BECKI) - PAXTON WHITTINGTON JRDate of Service 09/10/2019 08:22HPI/Events of Note eICU Progress [id number] admitted for hypertensive urgency. History obtained primarily from revi ew of EMR.Camera exam: Sitting up in bed eating breakfast. Vitals monitor reviewed. SBP 150sVitals: r eviewedLabs: reviewedRadiology: reviewedMeds: reviewedeICU Impression and Recommendations:Sepsis attr ibuted to sinusitis, with continued improvement and now resolution of leukocytosisHypertensive urgenc y/emergency, resolved, on oral medicationDiabetes mellitusNo new recommendations at this timeThank yo u for allowing us to participate in the care of this patient.Interventions Major-Hypertension - evalu ation and management
--- NOTE | 2019-09-10 08:46 | PCM.PN ---
<Farhan Patel - Last Filed: 09/10/19 10:57> - General Info Date of Service: 09/10/19 Subjective Update: no acute events overnight. States he feels better. Headache has improved. No nausea or vomiting. No chest pain, dyspnea. - Patient Data Vitals - Most Recent: Last Vital Signs Temp 37.1 C 09/10/19 02:30 Pulse 105 H 09/09/19 20:17 Resp 19 09/09/19 20:04 BP 156/94 H 09/10/19 06:27 Pulse Ox 92 L 09/10/19 06:27 Weight - Most Recent: 103.1 kg I&O - Last 24 Hours: Intake & Output 09/09/19 09/10/19 09/10/19 22:59 06:59 14:59 Intake Total 400 800 Output Total 1175 700 Balance -775 100 Lab Results Last 24 Hours: Laboratory Results - last 24 hr 09/10/19 09/10/19 Range/Units 05:31 05:31 WBC 10.67 (4.0-11.0) K/uL RBC 5.02 (4.50-5.90) M/uL Hgb 14.3 (13.0-17.0) g/dL Hct 42.6 (38.0-50.0) % MCV 84.9 (80.0-98.0) fL MCH 28.5 (27.0-32.0) pg MCHC 33.6 (31.0-37.0) g/dL RDW Std Deviation 45.2 (28.0-62.0) fl RDW Coeff of Cathleen 15 (11.0-15.0) % Plt Count 225 (150-400) K/uL MPV 11.30 (7.40-12.00) fL Neut % (Auto) 69.2 (48.0-80.0) % Lymph % (Auto) 21.3 (16.0-40.0) % [place] % (Auto) 7.0 (0.0-15.0) % Eos % (Auto) 2.2 (0.0-7.0) % Baso % (Auto) 0.3 (0.0-1.5) % Neut # (Auto) 7.4 H (1.4-5.7) K/uL Lymph # (Auto) 2.3 (0.6-2.4) K/uL [place] # (Auto) 0.8 (0.0-0.8) K/uL Eos # (Auto) 0.2 (0.0-0.7) K/uL Baso # (Auto) 0.0 (0.0-0.1) K/uL Nucleated RBC % 0.0 /100WBC Nucleated RBCs # 0 K/uL Sodium 140 (136-148) mmol/L Potassium 3.5 (3.5-5.1) mmol/L Chloride 101 (98-107) mmol/L Carbon Dioxide 28.1 (21.0-32.0) mmol/L BUN 14 (7.0-18.0) mg/dL Creatinine 1.3 (0.8-1.3) mg/dL Est Cr Clr Drug Dosing 82.86 mL/min Estimated GFR (MDRD) > 60.0 ml/min Glucose 92 (74-106) mg/dL Calcium 8.9 (8.5-10.1) mg/dL Total Bilirubin 1.3 H (0.2-1.0) mg/dL AST 18 (15-37) IU/L ALT 30 (14-63) IU/L Alkaline Phosphatase 64 (46-116) U/L Total Protein 7.5 (6.4-8.2) g/dL Albumin 3.8 (3.4-5.0) g/dL Globulin 3.7 (2.6-4.0) g/dL Albumin/Globulin Ratio 1.0 (0.9-1.6) Benji Results Last 24 Hours: Microbiology 09/07/19 08:45 Aerobic Blood Culture - Preliminary Blood - Venous - Lab Draw NO GROWTH AFTER 2 DAYS Anaerobic Blood Culture - Preliminary NO GROWTH AFTER 2 DAYS 09/07/19 09:05 Aerobic Blood Culture - Preliminary Blood - Venous NO GROWTH AFTER 2 DAYS Anaerobic Blood Culture - Preliminary NO GROWTH AFTER 2 DAYS Med Orders - Current: Current Medications Acetaminophen (Tylenol) 650 mg PO Q4H PRN PRN Reason: Pain (Mild 1-3)/fever Last Admin: 09/10/19 03:29 Dose: 650 mg Albuterol (Ventolin Hfa) 0 gm INH Q4H PRN PRN Reason: Wheezing Amlodipine Besylate (Norvasc) 10 mg PO DAILY MALLIKA Last Admin: 09/09/19 09:23 Dose: 10 mg Chlorthalidone (Chlorthalidone) 25 mg PO DAILY COUNT INCLUDES THE [facility] Last Admin: 09/09/19 10:31 Dose: 25 mg Clonidine HCl (Catapres-Tts 1) 0.1 mg TRDERM Q7D COUNT INCLUDES THE [facility] Last Admin: 09/09/19 10:43 Dose: 0.1 mg Clonidine HCl (Catapres) 0.1 mg PO BID COUNT INCLUDES THE [facility] Diphenhydramine HCl (Benadryl) 50 mg IVPUSH Q6H PRN PRN Reason: Anxiety Enoxaparin Sodium (Lovenox) 40 mg SUBCUT Q24H COUNT INCLUDES THE [facility] Fluticasone Propionate (Flonase) 0 gm NASBOTH DAILY COUNT INCLUDES THE [facility] Last Admin: 09/09/19 08:40 Dose: 2 spray Hydralazine HCl (Apresoline) 25 mg PO Q6H COUNT INCLUDES THE [facility] Last Admin: 09/10/19 05:24 Dose: 25 mg Ceftriaxone Sodium 1 gm/ (Sodium Chloride) 50 mls @ 100 mls/hr IV Q12H COUNT INCLUDES THE [facility] Last Admin: 09/09/19 20:07 Dose: 100 mls/hr Labetalol HCl (Normodyne) 100 mg PO BID COUNT INCLUDES THE [facility] Last Admin: 09/09/19 20:17 Dose: 100 mg Lorazepam (Ativan) 0.5 mg PO Q8H PRN PRN Reason: Anxiety Last Admin: 09/08/19 21:54 Dose: 0.5 mg Ondansetron HCl (Zofran) 4 mg IVPUSH Q4H PRN PRN Reason: Nausea/Vomiting Last Admin: 09/07/19 07:52 Dose: 4 mg Sodium Chloride (Saline Flush) 10 ml FLUSH ASDIRECTED PRN PRN Reason: Keep Vein Open Last Admin: 09/09/19 08:38 Dose: 10 ml Sodium Chloride (Saline Flush) 2.5 ml FLUSH ASDIRECTED PRN PRN Reason: Keep Vein Open Sodium Chloride ([place]hama Nasal [place]) 0 ml SVETLANA TID COUNT INCLUDES THE [facility] Last Admin: 09/10/19 05:24 Dose: 1 spray Discontinued Medications Clonidine HCl (Catapres) 0.1 mg PO TID COUNT INCLUDES THE [facility] Last Admin: 09/10/19 05:24 Dose: 0.1 mg Hydralazine HCl (Apresoline) 10 mg IVPUSH ONETIME ONE Stop: 09/06/19 19:36 Last Admin: 09/06/19 19:42 Dose: 10 mg Hydralazine HCl (Apresoline) 10 mg IVPUSH ONETIME ONE Stop: 09/06/19 21:26 Last Admin: 09/06/19 21:30 Dose: 10 mg Hydralazine HCl (Apresoline) 10 mg PO Q6H MALLIKA Last Admin: 09/07/19 16:56 Dose: 10 mg Hydralazine HCl (Apresoline) 10 mg IVPUSH Q4H PRN PRN Reason: Hypertension Last Admin: 09/09/19 08:35 Dose: 10 mg Sodium Chloride (Normal Saline) 1,000 mls @ 999 mls/hr IV STAT ONE Stop: 09/06/19 19:47 Last Admin: 09/06/19 18:50 Dose: 999 mls/hr Nicardipine HCl (Cardene 20 Mg In Ns 200 Ml) 20 mg in 200 mls @ 50 mls/hr IV TITRATE MALLIKA; Protocol Stop: 09/09/19 01:00 Last Titration: 09/08/19 07:55 Dose: 5 mg/hr, 50 mls/hr Potassium Chloride 40 meq/ (Premix) 100 mls @ 25 mls/hr IV Q4H MALLIKA Stop: 09/07/19 22:24 Last Admin: 09/07/19 19:53 Dose: 25 mls/hr Magnesium Sulfate 4 gm/ Premix 100 mls @ 50 mls/hr IV ONETIME ONE Stop: 09/07/19 20:26 Last Admin: 09/07/19 19:41 Dose: 50 mls/hr Sodium Chloride (Normal Saline) 1,000 mls @ 125 mls/hr IV ASDIRECTED MALLIKA Last Infusion: 09/08/19 00:40 Dose: 0 mls/hr Labetalol HCl (Normodyne) 20 mg IVPUSH ONETIME ONE; Protocol Stop: 09/06/19 18:00 Last Admin: 09/06/19 18:13 Dose: 20 mg Labetalol HCl (Normodyne) 20 mg IVPUSH ONETIME ONE; Protocol Stop: 09/06/19 18:48 Last Admin: 09/06/19 18:51 Dose: 20 mg Labetalol HCl (Normodyne) 19 mg IVPUSH Q4H PRN; Protocol PRN Reason: Hypertension Labetalol HCl (Normodyne) 10 mg IVPUSH Q6H MALLIKA; Protocol Last Admin: 09/09/19 05:12 Dose: 10 mg Metoprolol Tartrate (Lopressor) 25 mg PO Q12H MALLIKA Last Admin: 09/08/19 21:29 Dose: 25 mg Morphine Sulfate (Morphine) 2 mg IVPUSH ONETIME ONE Stop: 09/06/19 20:11 Last Admin: 09/06/19 20:21 Dose: 2 mg Morphine Sulfate (Morphine) 2 mg IVPUSH Q2H PRN PRN Reason: Pain (severe 7-10) Stop: 09/07/19 22:18 Last Admin: 09/07/19 11:45 Dose: 2 mg Morphine Sulfate (Morphine) 2 mg IVPUSH Q2H PRN PRN Reason: Pain (severe 7-10) Stop: 09/07/19 22:18 Ondansetron HCl (Zofran) 4 mg IVPUSH ONETIME ONE Stop: 09/06/19 20:29 Last Admin: 09/06/19 21:06 Dose: 4 mg Ondansetron HCl (Zofran Odt) 4 mg PO Q4H PRN PRN Reason: nausea, able to take PO Promethazine HCl (Phenergan) 25 mg IM ONETIME ONE Stop: 09/07/19 17:05 Last Admin: 09/07/19 17:37 Dose: 25 mg - Exam General: Alert, Oriented, Cooperative, No Acute Distress Lungs: Clear to Auscultation, Normal Respiratory Effort. No: Crackles, Wheezing Cardiovascular: Regular Rate, Regular Rhythm GI/Abdominal Exam: Normal Bowel Sounds, Soft, Non-Tender, No Distention Extremities: Normal Inspection, No Pedal Edema Skin: Warm, Dry - Problem List Review Problem List Initiated/Reviewed/Updated: Yes - My Orders Last 24 Hours: My Active Orders 09/09/19 17:49 Transfer Patient (Change bed) [ADT] Routine Telemetry Monitoring [Cardiac Monitoring] [RC] Q8H 09/10/19 07:45 Enoxaparin [Lovenox] 40 mg SUBCUT Q24H 09/10/19 09:00 cloNIDine [Catapres] 0.1 mg PO BID 09/11/19 05:11 CBC WITH AUTO DIFF [HEME] AM COMPREHENSIVE METABOLIC PN,CMP [CHEM] AM - Plan Plan:: A: 1. Hypertension, stable 2. Acute sinusitis, improving 3. Acute kidney injury, improving 4. Medical non-compliance P: 1. Hypertension, stable. Will go down on clonidine PO to BID and continue with clonidine patch. Will go up on labetalol to TID and will go down on hydralazine to BID. Increased chlorthalidone to 50 mg PO daily. 2. Acute sinusitis- switch to Augmentin BID. 2. Acute kidney injury, improving. Will continue encouraging hydration. dispo: plan to dc tomorrow <Marla Jacques - Last Filed: 09/10/19 14:13> - Patient Data Vitals - Most Recent: Last Vital Signs Temp 36.4 C 09/10/19 11:55 Pulse 97 09/10/19 13:45 Resp 20 09/10/19 11:55 BP 129/73 09/10/19 13:45 Pulse Ox 99 09/10/19 11:55 I&O - Last 24 Hours: Intake & Output 09/09/19 09/10/19 09/10/19 22:59 06:59 14:59 Intake Total 400 800 Output Total 1175 700 Balance -775 100 Lab Results Last 24 Hours: Laboratory Results - last 24 hr 09/10/19 09/10/19 Range/Units 05:31 05:31 WBC 10.67 (4.0-11.0) K/uL RBC 5.02 (4.50-5.90) M/uL Hgb 14.3 (13.0-17.0) g/dL Hct 42.6 (38.0-50.0) % MCV 84.9 (80.0-98.0) fL MCH 28.5 (27.0-32.0) pg MCHC 33.6 (31.0-37.0) g/dL RDW Std Deviation 45.2 (28.0-62.0) fl RDW Coeff of Cathleen 15 (11.0-15.0) % Plt Count 225 (150-400) K/uL MPV 11.30 (7.40-12.00) fL Neut % (Auto) 69.2 (48.0-80.0) % Lymph % (Auto) 21.3 (16.0-40.0) % [place] % (Auto) 7.0 (0.0-15.0) % Eos % (Auto) 2.2 (0.0-7.0) % Baso % (Auto) 0.3 (0.0-1.5) % Neut # (Auto) 7.4 H (1.4-5.7) K/uL Lymph # (Auto) 2.3 (0.6-2.4) K/uL [place] # (Auto) 0.8 (0.0-0.8) K/uL Eos # (Auto) 0.2 (0.0-0.7) K/uL Baso # (Auto) 0.0 (0.0-0.1) K/uL Nucleated RBC % 0.0 /100WBC Nucleated RBCs # 0 K/uL Sodium 140 (136-148) mmol/L Potassium 3.5 (3.5-5.1) mmol/L Chloride 101 (98-107) mmol/L Carbon Dioxide 28.1 (21.0-32.0) mmol/L BUN 14 (7.0-18.0) mg/dL Creatinine 1.3 (0.8-1.3) mg/dL Est Cr Clr Drug Dosing 82.86 mL/min Estimated GFR (MDRD) > 60.0 ml/min Glucose 92 (74-106) mg/dL Calcium 8.9 (8.5-10.1) mg/dL Total Bilirubin 1.3 H (0.2-1.0) mg/dL AST 18 (15-37) IU/L ALT 30 (14-63) IU/L Alkaline Phosphatase 64 (46-116) U/L Total Protein 7.5 (6.4-8.2) g/dL Albumin 3.8 (3.4-5.0) g/dL Globulin 3.7 (2.6-4.0) g/dL Albumin/Globulin Ratio 1.0 (0.9-1.6) Benji Results Last 24 Hours: Microbiology 09/07/19 08:45 Aerobic Blood Culture - Preliminary Blood - Venous - Lab Draw NO GROWTH AFTER 3 DAYS Anaerobic Blood Culture - Preliminary NO GROWTH AFTER 3 DAYS 09/07/19 09:05 Aerobic Blood Culture - Preliminary Blood - Venous NO GROWTH AFTER 3 DAYS Anaerobic Blood Culture - Preliminary NO GROWTH AFTER 3 DAYS Med Orders - Current: Current Medications Acetaminophen (Tylenol) 650 mg PO Q4H PRN PRN Reason: Pain (Mild 1-3)/fever Last Admin: 09/10/19 03:29 Dose: 650 mg Albuterol (Ventolin Hfa) 0 gm INH Q4H PRN PRN Reason: Wheezing Amlodipine Besylate (Norvasc) 10 mg PO DAILY COUNT INCLUDES THE [facility] Last Admin: 09/10/19 09:21 Dose: 10 mg Amoxicillin/Clavulanate Potassium (Augmentin 875 Mg/125 Mg) 1 tab PO Q12HR COUNT INCLUDES THE [facility] Bisacodyl (Dulcolax) 10 mg PO DAILY PRN PRN Reason: Constipation Chlorthalidone (Chlorthalidone) 50 mg PO DAILY COUNT INCLUDES THE [facility] Clonidine HCl (Catapres-Tts 1) 0.1 mg TRDERM Q7D COUNT INCLUDES THE [facility] Last Admin: 09/09/19 10:43 Dose: 0.1 mg Clonidine HCl (Catapres) 0.1 mg PO BID COUNT INCLUDES THE [facility] Last Admin: 09/10/19 09:19 Dose: 0.1 mg Diphenhydramine HCl (Benadryl) 50 mg IVPUSH Q6H PRN PRN Reason: Anxiety Enoxaparin Sodium (Lovenox) 40 mg SUBCUT Q24H COUNT INCLUDES THE [facility] Last Admin: 09/10/19 08:59 Dose: 40 mg Fluticasone Propionate (Flonase) 0 gm NASBOTH DAILY COUNT INCLUDES THE [facility] Last Admin: 09/10/19 09:19 Dose: 2 spray Hydralazine HCl (Apresoline) 25 mg PO BID COUNT INCLUDES THE [facility] Labetalol HCl (Normodyne) 100 mg PO TID COUNT INCLUDES THE [facility] Last Admin: 09/10/19 13:45 Dose: 100 mg Lorazepam (Ativan) 0.5 mg PO Q8H PRN PRN Reason: Anxiety Last Admin: 09/08/19 21:54 Dose: 0.5 mg Ondansetron HCl (Zofran) 4 mg IVPUSH Q4H PRN PRN Reason: Nausea/Vomiting Last Admin: 09/07/19 07:52 Dose: 4 mg Polyethylene Glycol (Miralax) 17 gm PO TID PRN PRN Reason: Constipation Last Admin: 09/10/19 11:50 Dose: 17 gm Sodium Chloride (Saline Flush) 10 ml FLUSH ASDIRECTED PRN PRN Reason: Keep Vein Open Last Admin: 09/09/19 08:38 Dose: 10 ml Sodium Chloride (Saline Flush) 2.5 ml FLUSH ASDIRECTED PRN PRN Reason: Keep Vein Open Sodium Chloride ([place] Nasal [place]) 0 ml SVETLANA TID MALLIKA Last Admin: 09/10/19 13:45 Dose: 2 spray Discontinued Medications Chlorthalidone (Chlorthalidone) 25 mg PO DAILY COUNT INCLUDES THE [facility] Last Admin: 09/10/19 09:20 Dose: 25 mg Chlorthalidone (Chlorthalidone) 25 mg PO ONETIME ONE Stop: 09/10/19 09:44 Last Admin: 09/10/19 09:58 Dose: 25 mg Clonidine HCl (Catapres) 0.1 mg PO TID MALLIKA Last Admin: 09/10/19 05:24 Dose: 0.1 mg Hydralazine HCl (Apresoline) 10 mg IVPUSH ONETIME ONE Stop: 09/06/19 19:36 Last Admin: 09/06/19 19:42 Dose: 10 mg Hydralazine HCl (Apresoline) 10 mg IVPUSH ONETIME ONE Stop: 09/06/19 21:26 Last Admin: 09/06/19 21:30 Dose: 10 mg Hydralazine HCl (Apresoline) 10 mg PO Q6H MALLIKA Last Admin: 09/07/19 16:56 Dose: 10 mg Hydralazine HCl (Apresoline) 10 mg IVPUSH Q4H PRN PRN Reason: Hypertension Last Admin: 09/09/19 08:35 Dose: 10 mg Hydralazine HCl (Apresoline) 25 mg PO Q6H MALLIKA Last Admin: 09/10/19 05:24 Dose: 25 mg Sodium Chloride (Normal Saline) 1,000 mls @ 999 mls/hr IV STAT ONE Stop: 09/06/19 19:47 Last Admin: 09/06/19 18:50 Dose: 999 mls/hr Nicardipine HCl (Cardene 20 Mg In Ns 200 Ml) 20 mg in 200 mls @ 50 mls/hr IV TITRATE MALLIKA; Protocol Stop: 09/09/19 01:00 Last Titration: 09/08/19 07:55 Dose: 5 mg/hr, 50 mls/hr Ceftriaxone Sodium 1 gm/ (Sodium Chloride) 50 mls @ 100 mls/hr IV Q12H MALLIKA Last Admin: 09/10/19 09:00 Dose: 100 mls/hr Potassium Chloride 40 meq/ (Premix) 100 mls @ 25 mls/hr IV Q4H MALLIKA Stop: 09/07/19 22:24 Last Admin: 09/07/19 19:53 Dose: 25 mls/hr Magnesium Sulfate 4 gm/ Premix 100 mls @ 50 mls/hr IV ONETIME ONE Stop: 09/07/19 20:26 Last Admin: 09/07/19 19:41 Dose: 50 mls/hr Sodium Chloride (Normal Saline) 1,000 mls @ 125 mls/hr IV ASDIRECTED COUNT INCLUDES THE [facility] Last Infusion: 09/08/19 00:40 Dose: 0 mls/hr Labetalol HCl (Normodyne) 20 mg IVPUSH ONETIME ONE; Protocol Stop: 09/06/19 18:00 Last Admin: 09/06/19 18:13 Dose: 20 mg Labetalol HCl (Normodyne) 20 mg IVPUSH ONETIME ONE; Protocol Stop: 09/06/19 18:48 Last Admin: 09/06/19 18:51 Dose: 20 mg Labetalol HCl (Normodyne) 19 mg IVPUSH Q4H PRN; Protocol PRN Reason: Hypertension Labetalol HCl (Normodyne) 10 mg IVPUSH Q6H COUNT INCLUDES THE [facility]; Protocol Last Admin: 09/09/19 05:12 Dose: 10 mg Labetalol HCl (Normodyne) 100 mg PO BID COUNT INCLUDES THE [facility] Last Admin: 09/10/19 09:20 Dose: 100 mg Metoprolol Tartrate (Lopressor) 25 mg PO Q12H COUNT INCLUDES THE [facility] Last Admin: 09/08/19 21:29 Dose: 25 mg Morphine Sulfate (Morphine) 2 mg IVPUSH ONETIME ONE Stop: 09/06/19 20:11 Last Admin: 09/06/19 20:21 Dose: 2 mg Morphine Sulfate (Morphine) 2 mg IVPUSH Q2H PRN PRN Reason: Pain (severe 7-10) Stop: 09/07/19 22:18 Last Admin: 09/07/19 11:45 Dose: 2 mg Morphine Sulfate (Morphine) 2 mg IVPUSH Q2H PRN PRN Reason: Pain (severe 7-10) Stop: 09/07/19 22:18 Ondansetron HCl (Zofran) 4 mg IVPUSH ONETIME ONE Stop: 11/09/19 20:29 Last Admin: 09/06/19 21:06 Dose: 4 mg Ondansetron HCl (Zofran Odt) 4 mg PO Q4H PRN PRN Reason: nausea, able to take PO Promethazine HCl (Phenergan) 25 mg IM ONETIME ONE Stop: 09/07/19 17:05 Last Admin: 09/07/19 17:37 Dose: 25 mg - Problem List & Annotations (1) Acute sinusitis SNOMED Code(s): 81852898 Code(s): J01.90 - ACUTE SINUSITIS, UNSPECIFIED Status: Acute Current Visit: Yes (2) Hypertensive urgency SNOMED Code(s): 222329179 Code(s): I16.0 - HYPERTENSIVE URGENCY Status: Acute Current Visit: Yes - Plan Plan:: I have seen and evaluated the patient and agree with the residents note unless specified in my note
[2019-09-10] MEDS: Enoxaparin 40 MG/0.4 ML Syringe SUBCUT SCH (08:59)
[2019-09-10] MEDS: cefTRIAXone 1 GM in Sodium Chloride 0.9% 50 ML IV SCH (09:00)
[2019-09-10] MEDS: Fluticasone Propionate Nasal Spray 16 GM Bottle NASBOTH SCH (09:19)
[2019-09-10] MEDS: Chlorthalidone 25 MG Tab PO SCH (09:20)
[2019-09-10] MEDS: Labetalol 100 MG Tab PO SCH ×3 (09:20→22:51)
[2019-09-10] MEDS: amLODIPine 5 MG Tab PO SCH (09:21)
[2019-09-10] MEDS ORDERED: Chlorthalidone 25 MG Tab PO ONE (09:43)
[2019-09-10] MEDS ORDERED: Polyethylene Glycol 3350 Powder 17 GM Packet PO PRN (10:10)
[2019-09-10] MEDS ORDERED: Bisacodyl 5 MG Tab PO PRN (10:10)
[2019-09-10] MEDS: Amoxicillin/Clavulanate K 875-125 MG Tab PO SCH (20:02)
[2019-09-11] MEDS: Acetaminophen 325 MG Tab PO PRN ×2 (01:20→10:45)
[2019-09-11] MEDS: Labetalol 100 MG Tab PO SCH ×2 (05:12→13:32)
[2019-09-11] MEDS: Sodium Chloride 0.65% Nasal Spray 45 ML Bottle NAS SCH ×2 (05:13→13:32)
[2019-09-11 05:56] LABS: BLOOD UREA NITROGEN,BUN 18 mg/dL (7.0-18.0); CHLORIDE,CL 101 mmol/L (98-107); GLUCOSE RANDOM 92 mg/dL (74-106); POTASSIUM,K 3.2 mmol/L (3.5-5.1); SODIUM,NA 139 mmol/L (136-148)
[2019-09-11] MEDS: cloNIDine 0.1 MG Tab PO SCH (08:36)
[2019-09-11] MEDS: Amoxicillin/Clavulanate K 875-125 MG Tab PO SCH (08:37)
[2019-09-11] MEDS: Potassium Chloride 20 MEQ Tab.ER PO SCH ×2 (08:37→11:17)
[2019-09-11] MEDS: hydrALAZINE 25 MG Tab PO SCH (08:37)
[2019-09-11] MEDS: amLODIPine 5 MG Tab PO SCH (08:38)
[2019-09-11] MEDS: Fluticasone Propionate Nasal Spray 16 GM Bottle NASBOTH SCH (08:39)
[2019-09-11] MEDS: Enoxaparin 40 MG/0.4 ML Syringe SUBCUT SCH (08:39)
[2019-09-11] MEDS ORDERED: Chlorthalidone 25 MG Tab PO SCH (09:00)
[2019-09-11] MEDS ORDERED: Spironolactone 25 MG Tab PO SCH (10:15)
--- NOTE | 2019-09-11 12:01 | PCM.DCSUM1 ---
<Farhan Patel - Last Filed: 09/12/19 20:34> Discharge Summary - Hospital Course Free Text/Narrative:: 39 y/o male with history of hypertension who presented to the ER complaining of headache. He was found to be hypertensive 230/140's. He was admitted for hypertensive emergency due to patient complaining of headache, nausea. Patient had not been taking his BP medication. CT head was negative for any intracranial hemorrhage but did show severe sinusitis. He was started on ceftriaxone for his acute sinusitis since he had a mild leukocytosis which later resolved with antibiotics. He was started on nicardapine drip due to high BP. Slowly he was transitioned to oral antihypertensives which included amlodipine, hydralazine, metoprolol, clonidine. His headache resolved once BP was more stable. Medications were optimized and he was discharged home on Augmentin for his acute sinusitis and clonidine patch, amlodipine, labetalol, chlorthalidone, spironolactone. His blood pressure at discharge was 130/90. He was instructed to follow-up with his PCP and cardiology. - Discharge Data Discharge Date: 09/11/19 Discharge Disposition: Home, Self-Care 01 Condition: Good - Referral to Home Health Primary Care Physician: PCP Not In Area - Patient Instructions Diet: Heart Healthy Diet, Low Sodium Activity: As Tolerated Notify Provider of: Fever, Increased Pain, Swelling and Redness, Nausea and/or Vomiting Other/Special Instructions: Please, follow-up with your primary care doctor and cardiology when you get home. - Discharge Plan *PRESCRIPTION DRUG MONITORING PROGRAM REVIEWED*: Not Applicable *COPY OF PRESCRIPTION DRUG MONITORING REPORT IN PATIENT GIANFRANCO: Not Applicable Prescriptions/Med Rec: Amoxicillin/Clavulanate K [Augmentin 875-125 MG] 1 tab PO Q12HR 5 Days #10 tablet amLODIPine [Norvasc] 10 mg PO DAILY 14 Days #14 tablet Chlorthalidone 50 mg PO DAILY 14 Days #28 tablet cloNIDine [Catapres-TTS 1] 0.1 mg TRDERM Q7D #2 patch Labetalol [Normodyne] 100 mg PO TID 14 Days #42 tablet Potassium Chloride 10 meq PO DAILY #14 tablet.er Spironolactone [Aldactone] 12.5 mg PO DAILY 14 Days #14 tablet Home Medications: Home Meds Albuterol [Ventolin HFA] 2 puff INH Q4H PRN #2 inhaler 04/17/19 [Rx] Amoxicillin/Clavulanate K [Augmentin 875-125 MG] 1 tab PO Q12HR 5 Days #10 tablet 09/11/19 [Rx] Chlorthalidone 50 mg PO DAILY 14 Days #28 tablet 09/11/19 [Rx] Labetalol [Normodyne] 100 mg PO TID 14 Days #42 tablet 09/11/19 [Rx] Potassium Chloride 10 meq PO DAILY #14 tablet.er 09/11/19 [Rx] Spironolactone [Aldactone] 12.5 mg PO DAILY 14 Days #14 tablet 09/11/19 [Rx] amLODIPine [Norvasc] 10 mg PO DAILY 14 Days #14 tablet 09/11/19 [Rx] cloNIDine [Catapres-TTS 1] 0.1 mg TRDERM Q7D #2 patch 09/11/19 [Rx] Patient Handouts: Potassium chloride tablets, extended-release tablets or capsules, Amoxicillin; Clarithromycin; Omeprazole capsules and tablets, Spironolactone tablets, Atenolol; Chlorthalidone tablets, Clonidine tablets Referrals: Farhan Patel MD [Resident] - 09/24/19 10:15 am (Please follow up with your Primary Care Provider and [employer] in [place] as soon as possible) - Discharge Summary/Plan Comment DC Time >30 min.: No - Patient Data Vitals - Most Recent: Last Vital Signs Temp 36.5 C 09/11/19 11:37 Pulse 92 09/11/19 11:37 Resp 18 09/11/19 11:37 BP 133/82 09/11/19 11:37 Pulse Ox 99 09/11/19 11:37 Weight - Most Recent: 103.1 kg I&O - Last 24 hours: Intake & Output 09/10/19 09/11/19 09/11/19 22:59 06:59 14:59 Intake Total 2140 1000 Output Total 1025 1300 Balance 1115 -300 Lab Results - Last 24 hrs: Laboratory Results - last 24 hr 09/11/19 09/11/19 09/11/19 Range/Units 05:02 05:02 09:05 WBC 8.04 (4.0-11.0) K/uL RBC 4.88 (4.50-5.90) M/uL Hgb 13.8 (13.0-17.0) g/dL Hct 40.8 (38.0-50.0) % MCV 83.6 (80.0-98.0) fL MCH 28.3 (27.0-32.0) pg MCHC 33.8 (31.0-37.0) g/dL RDW Std Deviation 42.2 (28.0-62.0) fl RDW Coeff of Cathleen 14 (11.0-15.0) % Plt Count 227 (150-400) K/uL MPV 10.90 (7.40-12.00) fL Neut % (Auto) 56.9 (48.0-80.0) % Lymph % (Auto) 29.0 (16.0-40.0) % [place] % (Auto) 8.0 (0.0-15.0) % Eos % (Auto) 5.7 (0.0-7.0) % Baso % (Auto) 0.4 (0.0-1.5) % Neut # (Auto) 4.6 (1.4-5.7) K/uL Lymph # (Auto) 2.3 (0.6-2.4) K/uL [place] # (Auto) 0.6 (0.0-0.8) K/uL Eos # (Auto) 0.5 (0.0-0.7) K/uL Baso # (Auto) 0.0 (0.0-0.1) K/uL Nucleated RBC % 0.0 /100WBC Nucleated RBCs # 0 K/uL Sodium 139 (136-148) mmol/L Potassium 3.2 L (3.5-5.1) mmol/L Chloride 101 (98-107) mmol/L Carbon Dioxide 29.0 (21.0-32.0) mmol/L BUN 18 (7.0-18.0) mg/dL Creatinine 1.3 (0.8-1.3) mg/dL Est Cr Clr Drug Dosing 82.86 mL/min Estimated GFR (MDRD) > 60.0 ml/min Glucose 92 (74-106) mg/dL Calcium 9.1 (8.5-10.1) mg/dL Total Bilirubin 1.0 (0.2-1.0) mg/dL AST 21 (15-37) IU/L ALT 34 (14-63) IU/L Alkaline Phosphatase 62 (46-116) U/L Troponin I < 0.050 (0.000-0.056) ng/mL Total Protein 7.5 (6.4-8.2) g/dL Albumin 3.8 (3.4-5.0) g/dL Globulin 3.7 (2.6-4.0) g/dL Albumin/Globulin Ratio 1.0 (0.9-1.6) ANDER Results - Last 24 hrs: Microbiology 09/07/19 08:45 Aerobic Blood Culture - Preliminary Blood - Venous - Lab Draw NO GROWTH AFTER 4 DAYS Anaerobic Blood Culture - Preliminary NO GROWTH AFTER 4 DAYS 09/07/19 09:05 Aerobic Blood Culture - Preliminary Blood - Venous NO GROWTH AFTER 4 DAYS Anaerobic Blood Culture - Preliminary NO GROWTH AFTER 4 DAYS Med Orders - Current: Current Medications Acetaminophen (Tylenol) 650 mg PO Q4H PRN PRN Reason: Pain (Mild 1-3)/fever Last Admin: 09/11/19 10:45 Dose: 650 mg Albuterol (Ventolin Hfa) 0 gm INH Q4H PRN PRN Reason: Wheezing Amlodipine Besylate (Norvasc) 10 mg PO DAILY [facility] Last Admin: 09/11/19 08:38 Dose: 10 mg Amoxicillin/Clavulanate Potassium (Augmentin 875 Mg/125 Mg) 1 tab PO Q12HR [facility] Last Admin: 09/11/19 08:37 Dose: 1 tab Bisacodyl (Dulcolax) 10 mg PO DAILY PRN PRN Reason: Constipation Chlorthalidone (Chlorthalidone) 50 mg PO DAILY [facility] Last Admin: 09/11/19 08:36 Dose: 50 mg Clonidine HCl (Catapres-Tts 1) 0.1 mg TRDERM Q7D [facility] Last Admin: 09/09/19 10:43 Dose: 0.1 mg Diphenhydramine HCl (Benadryl) 50 mg IVPUSH Q6H PRN PRN Reason: Anxiety Enoxaparin Sodium (Lovenox) 40 mg SUBCUT Q24H [facility] Last Admin: 09/11/19 08:39 Dose: 40 mg Fluticasone Propionate (Flonase) 0 gm NASBOTH DAILY [facility] Last Admin: 09/11/19 08:39 Dose: 2 spray Labetalol HCl (Normodyne) 100 mg PO TID [facility] Last Admin: 09/11/19 05:12 Dose: 100 mg Lorazepam (Ativan) 0.5 mg PO Q8H PRN PRN Reason: Anxiety Last Admin: 09/08/19 21:54 Dose: 0.5 mg Ondansetron HCl (Zofran) 4 mg IVPUSH Q4H PRN PRN Reason: Nausea/Vomiting Last Admin: 09/07/19 07:52 Dose: 4 mg Polyethylene Glycol (Miralax) 17 gm PO TID PRN PRN Reason: Constipation Last Admin: 09/10/19 11:50 Dose: 17 gm Sodium Chloride (Saline Flush) 10 ml FLUSH ASDIRECTED PRN PRN Reason: Keep Vein Open Last Admin: 09/09/19 08:38 Dose: 10 ml Sodium Chloride (Saline Flush) 2.5 ml FLUSH ASDIRECTED PRN PRN Reason: Keep Vein Open Sodium Chloride ([place] Nasal [place]) 0 ml SVETLANA TID [facility] Last Admin: 09/11/19 05:13 Dose: 1 spray Spironolactone (Aldactone) 12.5 mg PO DAILY [facility] Last Admin: 09/11/19 10:45 Dose: 12.5 mg Discontinued Medications Chlorthalidone (Chlorthalidone) 25 mg PO DAILY [facility] Last Admin: 09/10/19 09:20 Dose: 25 mg Chlorthalidone (Chlorthalidone) 25 mg PO ONETIME ONE Stop: 09/10/19 09:44 Last Admin: 09/10/19 09:58 Dose: 25 mg Clonidine HCl (Catapres) 0.1 mg PO TID [facility] Last Admin: 09/10/19 05:24 Dose: 0.1 mg Clonidine HCl (Catapres) 0.1 mg PO BID [facility] Last Admin: 09/11/19 08:36 Dose: 0.1 mg Hydralazine HCl (Apresoline) 10 mg IVPUSH ONETIME ONE Stop: 09/06/19 19:36 Last Admin: 09/06/19 19:42 Dose: 10 mg Hydralazine HCl (Apresoline) 10 mg IVPUSH ONETIME ONE Stop: 09/06/19 21:26 Last Admin: 09/06/19 21:30 Dose: 10 mg Hydralazine HCl (Apresoline) 10 mg PO Q6H [facility] Last Admin: 09/07/19 16:56 Dose: 10 mg Hydralazine HCl (Apresoline) 10 mg IVPUSH Q4H PRN PRN Reason: Hypertension Last Admin: 09/09/19 08:35 Dose: 10 mg Hydralazine HCl (Apresoline) 25 mg PO Q6H [facility] Last Admin: 09/10/19 05:24 Dose: 25 mg Hydralazine HCl (Apresoline) 25 mg PO BID [facility] Last Admin: 09/11/19 08:37 Dose: 25 mg Sodium Chloride (Normal Saline) 1,000 mls @ 999 mls/hr IV STAT ONE Stop: 09/06/19 19:47 Last Admin: 09/06/19 18:50 Dose: 999 mls/hr Nicardipine HCl (Cardene 20 Mg In Ns 200 Ml) 20 mg in 200 mls @ 50 mls/hr IV TITRATE [facility]; Protocol Stop: 09/09/19 01:00 Last Titration: 09/08/19 07:55 Dose: 5 mg/hr, 50 mls/hr Ceftriaxone Sodium 1 gm/ (Sodium Chloride) 50 mls @ 100 mls/hr IV Q12H [facility] Last Admin: 09/10/19 09:00 Dose: 100 mls/hr Potassium Chloride 40 meq/ (Premix) 100 mls @ 25 mls/hr IV Q4H [facility] Stop: 09/07/19 22:24 Last Admin: 09/07/19 19:53 Dose: 25 mls/hr Magnesium Sulfate 4 gm/ Premix 100 mls @ 50 mls/hr IV ONETIME ONE Stop: 09/07/19 20:26 Last Admin: 09/07/19 19:41 Dose: 50 mls/hr Sodium Chloride (Normal Saline) 1,000 mls @ 125 mls/hr IV ASDIRECTED [facility] Last Infusion: 09/08/19 00:40 Dose: 0 mls/hr Labetalol HCl (Normodyne) 20 mg IVPUSH ONETIME ONE; Protocol Stop: 09/06/19 18:00 Last Admin: 09/06/19 18:13 Dose: 20 mg Labetalol HCl (Normodyne) 20 mg IVPUSH ONETIME ONE; Protocol Stop: 09/06/19 18:48 Last Admin: 09/06/19 18:51 Dose: 20 mg Labetalol HCl (Normodyne) 19 mg IVPUSH Q4H PRN; Protocol PRN Reason: Hypertension Labetalol HCl (Normodyne) 10 mg IVPUSH Q6H [facility]; Protocol Last Admin: 09/09/19 05:12 Dose: 10 mg Labetalol HCl (Normodyne) 100 mg PO BID [facility] Last Admin: 09/10/19 09:20 Dose: 100 mg Metoprolol Tartrate (Lopressor) 25 mg PO Q12H [facility] Last Admin: 09/08/19 21:29 Dose: 25 mg Morphine Sulfate (Morphine) 2 mg IVPUSH ONETIME ONE Stop: 09/06/19 20:11 Last Admin: 09/06/19 20:21 Dose: 2 mg Morphine Sulfate (Morphine) 2 mg IVPUSH Q2H PRN PRN Reason: Pain (severe 7-10) Stop: 09/07/19 22:18 Last Admin: 09/07/19 11:45 Dose: 2 mg Morphine Sulfate (Morphine) 2 mg IVPUSH Q2H PRN PRN Reason: Pain (severe 7-10) Stop: 09/07/19 22:18 Ondansetron HCl (Zofran) 4 mg IVPUSH ONETIME ONE Stop: 09/06/19 20:29 Last Admin: 09/06/19 21:06 Dose: 4 mg Ondansetron HCl (Zofran Odt) 4 mg PO Q4H PRN PRN Reason: nausea, able to take PO Potassium Chloride (Klor-Con M20) 40 meq PO Q4H [facility] Stop: 09/11/19 11:46 Last Admin: 09/11/19 11:17 Dose: 40 meq Promethazine HCl (Phenergan) 25 mg IM ONETIME ONE Stop: 09/07/19 17:05 Last Admin: 09/07/19 17:37 Dose: 25 mg <Sawyer,Hooria - Last Filed: 09/13/19 21:51> Discharge Summary - Hospital Course HPI Initial Comments: I have performed history and physical and have discussed the patient management with the resident and agree with note above unless stated otherwise in my note. - Referral to Home Health Primary Care Physician: PCP Not In Area - Discharge Diagnosis/Problem(s) (1) Acute sinusitis SNOMED Code(s): 96073276 ICD Code: J01.90 - ACUTE SINUSITIS, UNSPECIFIED Status: Acute (2) Hypertensive urgency SNOMED Code(s): 882388474 ICD Code: I16.0 - HYPERTENSIVE URGENCY Status: Acute - Patient Data Vitals - Most Recent: Last Vital Signs Temp 36.5 C 09/11/19 11:37 Pulse 88 09/11/19 13:32 Resp 18 09/11/19 11:37 BP 135/95 H 09/11/19 13:32 Pulse Ox 99 09/11/19 11:37 Med Orders - Current: Current Medications Discontinued Medications Acetaminophen (Tylenol) 650 mg PO Q4H PRN PRN Reason: Pain (Mild 1-3)/fever Last Admin: 09/11/19 10:45 Dose: 650 mg Albuterol (Ventolin Hfa) 0 gm INH Q4H PRN PRN Reason: Wheezing Amlodipine Besylate (Norvasc) 10 mg PO DAILY [facility] Last Admin: 09/11/19 08:38 Dose: 10 mg Amoxicillin/Clavulanate Potassium (Augmentin 875 Mg/125 Mg) 1 tab PO Q12HR [facility] Last Admin: 09/11/19 08:37 Dose: 1 tab Bisacodyl (Dulcolax) 10 mg PO DAILY PRN PRN Reason: Constipation Chlorthalidone (Chlorthalidone) 25 mg PO DAILY [facility] Last Admin: 09/10/19 09:20 Dose: 25 mg Chlorthalidone (Chlorthalidone) 25 mg PO ONETIME ONE Stop: 09/10/19 09:44 Last Admin: 09/10/19 09:58 Dose: 25 mg Chlorthalidone (Chlorthalidone) 50 mg PO DAILY [facility] Last Admin: 09/11/19 08:36 Dose: 50 mg Clonidine HCl (Catapres) 0.1 mg PO TID [facility] Last Admin: 09/10/19 05:24 Dose: 0.1 mg Clonidine HCl (Catapres-Tts 1) 0.1 mg TRDERM Q7D [facility] Last Admin: 09/09/19 10:43 Dose: 0.1 mg Clonidine HCl (Catapres) 0.1 mg PO BID [facility] Last Admin: 09/11/19 08:36 Dose: 0.1 mg Diphenhydramine HCl (Benadryl) 50 mg IVPUSH Q6H PRN PRN Reason: Anxiety Enoxaparin Sodium (Lovenox) 40 mg SUBCUT Q24H [facility] Last Admin: 09/11/19 08:39 Dose: 40 mg Fluticasone Propionate (Flonase) 0 gm NASBOTH DAILY [facility] Last Admin: 09/11/19 08:39 Dose: 2 spray Hydralazine HCl (Apresoline) 10 mg IVPUSH ONETIME ONE Stop: 09/06/19 19:36 Last Admin: 09/06/19 19:42 Dose: 10 mg Hydralazine HCl (Apresoline) 10 mg IVPUSH ONETIME ONE Stop: 09/06/19 21:26 Last Admin: 09/06/19 21:30 Dose: 10 mg Hydralazine HCl (Apresoline) 10 mg PO Q6H [facility] Last Admin: 09/07/19 16:56 Dose: 10 mg Hydralazine HCl (Apresoline) 10 mg IVPUSH Q4H PRN PRN Reason: Hypertension Last Admin: 09/09/19 08:35 Dose: 10 mg Hydralazine HCl (Apresoline) 25 mg PO Q6H [facility] Last Admin: 09/10/19 05:24 Dose: 25 mg Hydralazine HCl (Apresoline) 25 mg PO BID [facility] Last Admin: 09/11/19 08:37 Dose: 25 mg Sodium Chloride (Normal Saline) 1,000 mls @ 999 mls/hr IV STAT ONE Stop: 09/06/19 19:47 Last Admin: 09/06/19 18:50 Dose: 999 mls/hr Nicardipine HCl (Cardene 20 Mg In Ns 200 Ml) 20 mg in 200 mls @ 50 mls/hr IV TITRATE [facility]; Protocol Stop: 09/09/19 01:00 Last Titration: 09/08/19 07:55 Dose: 5 mg/hr, 50 mls/hr Ceftriaxone Sodium 1 gm/ (Sodium Chloride) 50 mls @ 100 mls/hr IV Q12H [facility] Last Admin: 09/10/19 09:00 Dose: 100 mls/hr Potassium Chloride 40 meq/ (Premix) 100 mls @ 25 mls/hr IV Q4H [facility] Stop: 09/07/19 22:24 Last Admin: 09/07/19 19:53 Dose: 25 mls/hr Magnesium Sulfate 4 gm/ Premix 100 mls @ 50 mls/hr IV ONETIME ONE Stop: 09/07/19 20:26 Last Admin: 09/07/19 19:41 Dose: 50 mls/hr Sodium Chloride (Normal Saline) 1,000 mls @ 125 mls/hr IV ASDIRECTED [facility] Last Infusion: 09/08/19 00:40 Dose: 0 mls/hr Labetalol HCl (Normodyne) 20 mg IVPUSH ONETIME ONE; Protocol Stop: 09/06/19 18:00 Last Admin: 09/06/19 18:13 Dose: 20 mg Labetalol HCl (Normodyne) 20 mg IVPUSH ONETIME ONE; Protocol Stop: 09/06/19 18:48 Last Admin: 09/06/19 18:51 Dose: 20 mg Labetalol HCl (Normodyne) 19 mg IVPUSH Q4H PRN; Protocol PRN Reason: Hypertension Labetalol HCl (Normodyne) 10 mg IVPUSH Q6H [facility]; Protocol Last Admin: 09/09/19 05:12 Dose: 10 mg Labetalol HCl (Normodyne) 100 mg PO BID [facility] Last Admin: 09/10/19 09:20 Dose: 100 mg Labetalol HCl (Normodyne) 100 mg PO TID [facility] Last Admin: 09/11/19 13:32 Dose: 100 mg Lorazepam (Ativan) 0.5 mg PO Q8H PRN PRN Reason: Anxiety Last Admin: 09/08/19 21:54 Dose: 0.5 mg Metoprolol Tartrate (Lopressor) 25 mg PO Q12H [facility] Last Admin: 09/08/19 21:29 Dose: 25 mg Morphine Sulfate (Morphine) 2 mg IVPUSH ONETIME ONE Stop: 09/06/19 20:11 Last Admin: 09/06/19 20:21 Dose: 2 mg Morphine Sulfate (Morphine) 2 mg IVPUSH Q2H PRN PRN Reason: Pain (severe 7-10) Stop: 09/07/19 22:18 Last Admin: 09/07/19 11:45 Dose: 2 mg Morphine Sulfate (Morphine) 2 mg IVPUSH Q2H PRN PRN Reason: Pain (severe 7-10) Stop: 09/07/19 22:18 Ondansetron HCl (Zofran) 4 mg IVPUSH ONETIME ONE Stop: 09/06/19 20:29 Last Admin: 09/06/19 21:06 Dose: 4 mg Ondansetron HCl (Zofran Odt) 4 mg PO Q4H PRN PRN Reason: nausea, able to take PO Ondansetron HCl (Zofran) 4 mg IVPUSH Q4H PRN PRN Reason: Nausea/Vomiting Last Admin: 09/07/19 07:52 Dose: 4 mg Polyethylene Glycol (Miralax) 17 gm PO TID PRN PRN Reason: Constipation Last Admin: 09/10/19 11:50 Dose: 17 gm Potassium Chloride (Klor-Con M20) 40 meq PO Q4H [facility] Stop: 09/11/19 11:46 Last Admin: 09/11/19 11:17 Dose: 40 meq Promethazine HCl (Phenergan) 25 mg IM ONETIME ONE Stop: 09/07/19 17:05 Last Admin: 09/07/19 17:37 Dose: 25 mg Sodium Chloride (Saline Flush) 10 ml FLUSH ASDIRECTED PRN PRN Reason: Keep Vein Open Last Admin: 09/09/19 08:38 Dose: 10 ml Sodium Chloride (Saline Flush) 2.5 ml FLUSH ASDIRECTED PRN PRN Reason: Keep Vein Open Sodium Chloride ([place] Nasal [place]) 0 ml SVETLANA TID [facility] Last Admin: 09/11/19 13:32 Dose: 2 spray Spironolactone (Aldactone) 12.5 mg PO DAILY [facility] Last Admin: 09/11/19 10:45 Dose: 12.5 mg
== END 2019-09-11 13:50 | disposition home or self-care (01) | DRG 305 ==
LOC: MW.ED 17:44 → OBSVTOIN 21:26 → UNDOADMOB 21:26 → MW.MS 21:26 → MW.ICU 22:52 → MW.MS 09-10 08:34
PROVIDERS: ADMIT Internal Medicine; ATTEND Internal Medicine
DX: I16.1 Hypertensive emergency (principal); N17.9 Acute kidney failure, unspecified; J01.90 Acute sinusitis, unspecified; I10 Essential (primary) hypertension; G47.33 Obstructive sleep apnea (adult) (pediatric); G89.29 Other chronic pain; J45.909 Unspecified asthma, uncomplicated; E11.9 Type 2 diabetes mellitus without complications; E87.6 Hypokalemia; E83.42 Hypomagnesemia; G43.909 Migraine, unspecified, not intractable, without status migrainosus; Z88.8 Allergy status to other drugs, medicaments and biological substances; Z79.899 Other long term (current) drug therapy; Z91.14 Patient's other noncompliance with medication regimen; Z99.81 Dependence on supplemental oxygen
CPT/HCPCS: 36415; 70450; 70450-26; 71045; 71045-26; 80048; 80053; 80305-QW; 81003; 83605; 83735; 84100; 84145; 84484; 85025; 85652; 87040; 93005; 94660; 96361; 96374; 96375; 96376; 99284; 99285-25; A9270-GY; J0360; J0696; J1650; J2270; J2405; J2550; J3475; J3480; J3490; J7030; J7050